=== PATIENT | male | born 1955 | race Hispanic/Latino ===

== ENCOUNTER 2016-11-17 20:08 | Emergency (ER) | payer SELFPAY ==
[2016-11-17 21:28] LABS: Basophils % (Auto) 0.9 % (0.0-1.8); Eosinophils % (Auto) 6.9 % (0.0-4.3); Hematocrit 40.2 % (35.5-45.6); Hemoglobin 13.6 gm/dl (11.8-15.2); Mean Corpuscular HGB Conc 34 % (32-34); Mean Corpuscular Hemoglobin 32 pg (28-32); Mean Corpuscular Volume 93 fl (84-94); Platelet Count 188 K/mm3 (140-440); Red Blood Count 4.31 M/mm3 (3.65-5.03); Red Cell Distribution Width 14.7 % (13.2-15.2); White Blood Count 6.1 K/mm3 (4.5-11.0)
[2016-11-17 21:41] LABS: Alanine Aminotransferase 61 units/L (7-56); Albumin 4.5 g/dL (3.9-5); Alkaline Phosphatase 108 units/L (35-129); Anion Gap 19 mmol/L; Bilirubin,Total 0.4 mg/dL (0.1-1.2); Blood Urea Nitrogen 25 mg/dL (9-20); Calcium 9.7 mg/dL (8.4-10.2); Carbon Dioxide 24 mmol/L (22-30); Chloride 97.4 mmol/L (98-107); Glucose 94 mg/dL (75-100); Lipase 60 units/L (13-60); Potassium 4.3 mmol/L (3.6-5.0); Sodium 136 mmol/L (137-145); Total Protein 8.8 g/dL (6.3-8.2)
[2016-11-17 22:37] LABS: Bilirubin,Urine NEG (Negative); Blood,Urine NEG (Negative); Ketones,Urine NEG (Negative); Leukocyte Esterase,Urine NEG (Negative); Nitrite,Urine NEG (Negative); Protein,Urine <15 mg/dL mg/dL (Negative); Urobilinogen,Urine < 2.0 mg/dL (<2.0)
--- NOTE | 2016-11-17 23:40 | Emergency Department Report ---
Chief Complaint: Abdominal Pain Stated Complaint: PAIN ALL OVER - HPI History of Present Illness: Patient here complaining of abdominal pain for 1 week. Denies any urinary burning frequency or urgency. Pain is 10 out of 10 located to right upper abdomen and right lower chest wall . Patient said that it hurts when he takes a deep breath. Patient denies any fever or chills. Denies any vomiting. Denies any diarrhea. - ROS Review of Systems: All systems are negative unless stated in HPI above. - Exam Vital Signs: Vital Signs 11/17/16 20:28 Temperature 97.5 F L Pulse Rate 109 H Respiratory 16 Rate Blood Pressure 144/103 O2 Sat by Pulse 100 Oximetry Physical Exam: General: This is a 61-year-old male that is frail-looking but in no distress Abdomen: Mild tenderness to palpate to right upper quadrant quadrant without any rebound or guarding. Normal bowel sounds. Chest/CV: Tender to palpate anterior lead to right chest wall distal rib above right upper quadrant. Tachycardic at 109, regular rhythm. S1 and S2 Lungs: Patient with congested cough MSE screening note: Focused history and physical exam performed. Due to findings the following was ordered:see [facility] ED Medical Decision Making - Lab Data Result diagrams: 11/17/16 21:06 11/17/16 21:06 - Medical Decision Making Medical decision making: Patient seen by provider in triage area. Appropriate protocol activated and patient to main ED to be seen by physician. ED Disposition for MSE Condition: Stable
[2016-11-18] MEDS ORDERED: PERCOCET 5/325 PO ONE (03:57)
--- NOTE | 2016-11-18 04:15 | Emergency Department Report ---
ED Chest Pain HPI - General Chief Complaint: Abdominal Pain Stated Complaint: PAIN ALL OVER Time Seen by Provider: 11/17/16 23:42 Source: patient Mode of arrival: Stretcher Limitations: No Limitations - History of Present Illness Initial Comments: 61-year-old male [place] of right lower rib pain 1 month. Patient states he was playing with family members and they were throwing a ball he was struck in his right lower rib cage area. Continued to have pain since. Pain is constant , rated moderate to severe in intensity, worse with palpation and movement. No alleviating factors reported. Patient took ibuprofen without relief. No posterior shortness of breath, nausea, vomiting, diaphoresis, cough, or fever. - Related Data Home Medications Medication Instructions Recorded Confirmed Last Taken Famotidine [Pepcid] 20 mg PO BID 03/09/15 10/22/15 03/07/15 Mag Hydrox/Al Hydrox/Simeth 03/09/15 10/22/15 03/07/15 [Maalox Advanced Suspension] Metoprolol [Lopressor] 25 mg PO BID 03/09/15 10/22/15 Unknown cloNIDine 0.2 mg PO DAILY 03/09/15 10/22/15 03/07/15 hydrALAZINE [Apresoline] 25 mg PO Q8H 03/09/15 10/22/15 Unknown traMADol [Ultram 50 MG tab] 03/09/15 10/22/15 Unknown Previous Rx's Medication Instructions Recorded Last Taken Type Clindamycin [Clindamycin CAP] 450 mg PO Q8HR #21 capsule 10/10/16 Unknown Rx Folic Acid [Folvite] 1 mg PO QDAY #30 tablet 10/10/16 Unknown Rx Multivitamin Tab [Multiple Vitamin 1 each PO QDAY #30 tablet 10/10/16 Unknown Rx TAB (Theragran)] Thiamine [Vitamin B-1] 100 mg PO QDAY #30 tablet 10/10/16 Unknown Rx HYDROcodone/APAP 5-325 [[place] 1 each PO Q6HR PRN #20 tablet 11/18/16 Unknown Rx 5/325] Allergies Allergy/AdvReac Type Severity Reaction Status Date / Time No Known Allergies Allergy Verified 10/22/15 16:56 CAROLYN score - Carolyn Score Age > 65: (0) No Aspirin use within the Past 7 Days: (0) No 3 or more CAD Risk Factors: (0) No 2 or more Angina events in past 24 hrs: (0) No Known CAD with more than 50% Stenosis: (0) No Elevated Cardiac Markers: (0) No ST Deviation Greater than 0.5mm: (0) No CAROLYN Score: 0 ED Review of Systems ROS: Stated complaint: PAIN ALL OVER Other details as noted in HPI Comment: All other systems reviewed and negative Other: Constitutional: No fevers chills Eyes: No eye pain visual changes ENT: No ear pain Neck: Denies pain Respiratory: Denies cough wheezing Cardiovascular: Denies palpitations, syncope GI: Denies abdominal pain, nausea, vomiting : Denies dysuria Musculoskeletal: Denies back pain Skin: Denies rash, lesions, erythema Neurologic: Denies headache, numbness, weakness Psychiatric: Denies suicidal ideation, hallucinations ED Past Medical Hx - Past Medical History Hx Hypertension: Yes Hx GERD: Yes Additional medical history: Left foot pain, Back pain, gastric ulcers - Surgical History Past Surgical History?: No Additional Surgical History: right knee surgery, right wrist surgery, Stomach surgery - Social History Smoking Status: Current Every Day Smoker Substance Use Type: None - Medications Home Medications: Home Medications Medication Instructions Recorded Confirmed Last Taken Type Famotidine [Pepcid] 20 mg PO BID 03/09/15 10/22/15 03/07/15 History Mag Hydrox/Al Hydrox/Simeth 03/09/15 10/22/15 03/07/15 History [Maalox Advanced Suspension] Metoprolol [Lopressor] 25 mg PO BID 03/09/15 10/22/15 Unknown History cloNIDine 0.2 mg PO DAILY 03/09/15 10/22/15 03/07/15 History hydrALAZINE [Apresoline] 25 mg PO Q8H 03/09/15 10/22/15 Unknown History traMADol [Ultram 50 MG tab] 03/09/15 10/22/15 Unknown History Clindamycin [Clindamycin CAP] 450 mg PO Q8HR #21 capsule 10/10/16 Unknown Rx Folic Acid [Folvite] 1 mg PO QDAY #30 tablet 10/10/16 Unknown Rx Multivitamin Tab [Multiple Vitamin 1 each PO QDAY #30 tablet 10/10/16 Unknown Rx TAB (Theragran)] Thiamine [Vitamin B-1] 100 mg PO QDAY #30 tablet 10/10/16 Unknown Rx HYDROcodone/APAP 5-325 [[place] 1 each PO Q6HR PRN #20 tablet 11/18/16 Unknown Rx 5/325] ED Physical Exam - General Limitations: No Limitations - Other Other exam information: General: No limitations, patient is alert in no acute distress Head exam: Atraumatic, normocephalic Eyes exam: Normal appearance, pupils equal reactive to light, extraocular movements intact ENT: Moist mucous membrane, normal oropharynx Neck exam: Normal inspection, full range of motion, no meningismus nontender Respiratory exam: Clear to auscultation bilateral, no wheezes, rales, crackles. Reproducible right anterior lower rib tenderness Cardiovascular: Normal rate and rhythm, normal heart sounds Abdomen: Soft, nondistended, and nontender, with normal bowel sounds, no rebound, or guarding Extremity: Full range of motion normal inspection no deformity Back: Normal Inspection, full range of motion, no tenderness Neurologic: Alert, oriented x3, cranial nerves intact, no motor or sensory deficit Psychiatric: normal affect, normal mood Skin: Warm, dry, intact ED Course Vital Signs 11/17/16 11/18/16 20:28 04:34 Temperature 97.5 F L Pulse Rate 109 H 83 Respiratory 16 17 Rate Blood Pressure 144/103 Blood Pressure 161/101 [Right] O2 Sat by Pulse 100 98 Oximetry - Reevaluation(s) Reevaluation #1: 11/18/16 04:12 Patient given Percocet in the ED for pain Reevaluation #3: 11/18/16 04:45 Patient has a history of hypertension. Given 0.1 mg clonidine prior to discharge ED Medical Decision Making - Lab Data Result diagrams: 11/17/16 21:06 11/17/16 21:06 Lab Results 11/17/16 11/17/16 11/17/16 Range/Units 21:06 21:06 Unknown WBC 6.1 (4.5-11.0) K/mm3 RBC 4.31 (3.65-5.03) M/mm3 Hgb 13.6 (11.8-15.2) gm/dl Hct 40.2 (35.5-45.6) % MCV 93 (84-94) fl MCH 32 (28-32) pg MCHC 34 (32-34) % RDW 14.7 (13.2-15.2) % Plt Count 188 (140-440) K/mm3 Lymph % (Auto) 22.4 (13.4-35.0) % [place] % (Auto) 8.9 H (0.0-7.3) % Eos % (Auto) 6.9 H (0.0-4.3) % Baso % (Auto) 0.9 (0.0-1.8) % Lymph # 1.4 (1.2-5.4) K/mm3 [place] # 0.5 (0.0-0.8) K/mm3 Eos # 0.4 (0.0-0.4) K/mm3 Baso # 0.1 (0.0-0.1) K/mm3 Seg Neutrophils % 60.9 (40.0-70.0) % Seg Neutrophils # 3.7 (1.8-7.7) K/mm3 Sodium 136 L (137-145) mmol/L Potassium 4.3 (3.6-5.0) mmol/L Chloride 97.4 L (98-107) mmol/L Carbon Dioxide 24 (22-30) mmol/L Anion Gap 19 mmol/L BUN 25 H (9-20) mg/dL Creatinine 1.0 (0.8-1.5) mg/dL Estimated GFR > 60 ml/min BUN/Creatinine Ratio 25.00 % Glucose 94 (75-100) mg/dL Calcium 9.7 (8.4-10.2) mg/dL Total Bilirubin 0.4 (0.1-1.2) mg/dL AST 55 H (5-40) units/L ALT 61 H (7-56) units/L Alkaline Phosphatase 108 (35-129) units/L Total Protein 8.8 H (6.3-8.2) g/dL Albumin 4.5 (3.9-5) g/dL Albumin/Globulin Ratio 1.0 % Lipase 60 (13-60) units/L Urine Color Yellow (Yellow) Urine Turbidity Clear (Clear) Urine pH 5.0 (5.0-7.0) Ur Specific [place] 1.017 (1.003-1.030) Urine Protein <15 mg/dl (Negative) mg/dL Urine Glucose (UA) Neg (Negative) mg/dL Urine Ketones Neg (Negative) mg/dL Urine Blood Neg (Negative) Urine Nitrite Neg (Negative) Urine Bilirubin Neg (Negative) Urine Urobilinogen < 2.0 (<2.0) mg/dL Ur Leukocyte Esterase Neg (Negative) Urine WBC (Auto) 3.0 (0.0-6.0) /HPF Urine RBC (Auto) 2.0 (0.0-6.0) /HPF U Epithel Cells (Auto) < 1.0 (0-13.0) /HPF - EKG Data -: EKG Interpreted by Me (sinus rhythm rate 87. no st Elevation T-wave inversions) - EKG Data When compared to previous EKG there are: no significant change (compared to ) - Radiology Data Radiology results: image reviewed (x-ray right rib series no displaced fracture , no pneumothorax, no infiltrate) - Medical Decision Making Patient has reproducible rib tenderness without bruising or displacement. Original injury happened 1 month ago. No obvious fracture identified on x-ray. Patient was treated symptomatically with pain medication. Mild LFT elevation noted and patient gives a history of heavy alcohol use but denies recent alcohol. - Differential Diagnosis fracture, contusion, pneumonia, biliary colic Critical Care Time: No Critical care attestation.: If time is entered above; I have spent that time in minutes in the direct care of this critically ill patient, excluding procedure time. ED Disposition Clinical Impression: Contusion of rib on right side, Hypertension Disposition: DISCHARGED TO HOME OR SELFCARE Is pt being admited?: No Does the pt Need Aspirin: No Condition: Stable Instructions: Rib Fracture (ED), Hypertension (ED) Additional Instructions: You were given discharge instructions for rib fractures. However, no fracture was identified on x-ray at this time. Official report is pending. Management for rib fracture and contusion are generally the same. Take medication as prescribed. Return if symptoms worsen. Prescriptions: HYDROcodone/APAP 5-325 [[place] 5/325] 1 each PO Q6HR PRN #20 tablet PRN Reason: Pain Referrals: PRIMARY CARE, [Primary Care Provider] - 3-5 Days [facility] [Provider Group] - 3-5 Days Time of Disposition: 04:17
[2016-11-18 04:35] VITALS: BP 161/101
[2016-11-18] MEDS ORDERED: CATAPRES PO ONE (04:44)
--- NOTE | 2016-11-18 09:12 | XRay Report ---
Single view chest with right ribs: Compared to 10/09/16. History: Pain with breathing. Findings: Normal cardiomediastinal silhouette. Trachea is midline. No consolidation, pneumothorax or pleural effusion. No acute rib fracture. Impression: No acute cardiopulmonary findings. No acute fracture.
== END 2016-11-18 04:30 | disposition home or self-care (01) ==
LOC: ED 20:08
DX: S20.211A Contusion of right front wall of thorax, initial encounter (principal); I10 Essential (primary) hypertension; K21.9 Gastro-esophageal reflux disease without esophagitis; F17.200 Nicotine dependence, unspecified, uncomplicated; W21.00XA Struck by hit or thrown ball, unspecified type, initial encounter; Y93.89 Activity, other specified; Y99.9 Unspecified external cause status; Y92.89 Other specified places as the place of occurrence of the external cause
CPT/HCPCS: 36415; 80053; 81001; 83690; 85025; 93005; 93010

== ENCOUNTER 2016-11-18 10:24 | Emergency (ER) | payer SELFPAY ==
[2016-11-18 10:35] VITALS: BP 131/90
--- NOTE | 2016-11-18 14:56 | Emergency Department Report ---
Chief Complaint: Extremity Injury, Lower Stated Complaint: DIZZY/LEFT FOOT PAIN Time Seen by Provider: 11/18/16 13:54 - HPI History of Present Illness: 61-year-old male past medical history homelessness resents with complaint of not being able to obtain his medicine because he does not have any money. Also states that he wants a place to stay but does not want to go to a fci. He was discharged from the ER last night, has discharge paperwork and prescriptions in his pocket which she has shown me. Patient showed me his discharge paperwork and prescriptions. Patient is irate and states that I am responsible for finding him housing. - ROS Review of Systems: Diagnosis of rib fractures, chronic foot and back pain - Exam Vital Signs: Vital Signs 11/18/16 10:25 Temperature 97.6 F Pulse Rate 78 Respiratory 20 Rate Blood Pressure 131/90 O2 Sat by Pulse 97 Oximetry Physical Exam: I examined patient's chest wall, has minor tenderness in the right lower chest wall directly over the ribs on palpation. Heart and lungs clear to auscultation. No signs of bruising or ecchymosis on chest wall. Patient has bunions and bilateral feet and poor foot care. No signs of cellulitis distal pulses intact no signs of any abscesses extremities warm to touch not cold. Dorsalis pedis and posterior tibial pulses intact bilaterally no vascular ulcers on exam. MSE screening note: Focused history and physical exam performed. Due to findings the following was ordered: Screening Assessment/Plan/Differential Dx: Social issue/house and issue, homelessness 1- This initial assessment/diagnostic orders/clinical plan/ treatment(s) is/are subject to change based on pt's health status, clinical progression and re- assessment by fellow clinical providers in the ED. Further treatment and workup at subsequent clinical provers discretion. Patient/guardians urged not to elope from ED as their condition may be serious if not clinically assessed and managed. 2-I consulted social insurance adviser/elevator mechanic apprentice Nicko or assistance in this matter, she offered the patient housing in a fci but patient refused 3-patient became irate, as patient has early been assessed and treated medically and has no new complaints used NME process for the patient 4-A should began slamming doors because he was irate, escorted out by security officers ED Disposition for MSE Condition: Stable
== END 2016-11-18 14:15 | disposition left against medical advice (07) ==
LOC: ED 10:24
DX: R42 Dizziness and giddiness (principal); M79.672 Pain in left foot; Z53.21 Procedure and treatment not carried out due to patient leaving prior to being seen by health care provider

== ENCOUNTER 2019-03-17 22:10 | Emergency (ER) | payer MEDICAID ==
[2019-03-17 23:46] LABS: Alanine Aminotransferase 33 units/L (7-56); Albumin 3.9 g/dL (3.9-5); BUN/Creatinine Ratio 13; Blood Urea Nitrogen 16 mg/dL (9-20); Calcium 9.6 mg/dL (8.4-10.2); Hemolysis Index 0
[2019-03-17 23:48] LABS: Basophils % (Auto) 0.9 % (0.0-1.8); Eosinophils # (Auto) 0.3 K/mm3 (0.0-0.4); Eosinophils % (Auto) 6.1 % (0.0-4.3); Hematocrit 33.8 % (35.5-45.6); Hemoglobin 11.9 gm/dl (11.8-15.2); Lymphocytes # (Auto) 1.6 K/mm3 (1.2-5.4); Mean Corpuscular HGB Conc 35 % (32-34); Mean Corpuscular Volume 88 fl (84-94); Monocytes # (Auto) 0.4 K/mm3 (0.0-0.8); Monocytes % (Auto) 7.1 % (0.0-7.3); Platelet Count 204 K/mm3 (140-440); Red Blood Count 3.85 M/mm3 (3.65-5.03)
[2019-03-18] LABS: Red Cell Distribution Width 16.9 % (13.2-15.2)
--- NOTE | 2019-03-18 00:14 | XRay Report ---
PROCEDURE: XR CHEST ROUTINE 2V TECHNIQUE: PA and lateral chest radiographs were obtained. HISTORY: productive cough COMPARISONS: None. FINDINGS: Heart: Normal. Mediastinum/Vessels: Normal. Lungs/Pleural space: Lungs are expanded. There are chronic fibrotic changes. There are no acute infi ltrates. There is no pleural effusion or pneumothorax.. Bony thorax: No acute osseous abnormality. IMPRESSION: There is no acute cardiopulmonary abnormality.. This document is electronically signed by Robin Vegas MD., Mar 18 2019 12:12:53 AM ET
[2019-03-18] MEDS ORDERED: TYLENOL PO ONE (04:33)
--- NOTE | 2019-03-18 04:33 | Emergency Department Report ---
ED General Adult HPI - General Chief complaint: Pain General Stated complaint: BODY PAIN Time Seen by Provider: 03/18/19 04:29 Source: patient Mode of arrival: Ambulatory Limitations: Physical Limitation - History of Present Illness Initial comments: Mr. Ivy is a 63 yo male with history of cellulitis, alcoholism, homelessness rib contusion who presents with diffuse body pain. He states that he has had several months of pain in his right rib cage and "busted foot". He desires pain medication and food to eat. No recent trauma. No other concerns. -: month(s) (several) Location: chest, lower extremity Severity scale (0 -10): 10 Quality: aching Consistency: constant Worsens with: movement Associated Symptoms: denies other symptoms - Related Data Previous Rx's Medication Instructions Recorded Last Taken Type Clindamycin [Clindamycin CAP] 450 mg PO Q8HR #21 capsule 10/10/16 Unknown Rx Folic Acid [Folvite] 1 mg PO QDAY #30 tablet 10/10/16 Unknown Rx Multivitamin Tab [Multiple Vitamin 1 each PO QDAY #30 tablet 10/10/16 Unknown Rx TAB (Theragran)] Thiamine [Vitamin B-1] 100 mg PO QDAY #30 tablet 10/10/16 Unknown Rx HYDROcodone/APAP 5-325 [[place] 1 each PO Q6HR PRN #20 tablet 11/18/16 Unknown Rx 5/325] Allergies Allergy/AdvReac Type Severity Reaction Status Date / Time No Known Allergies Allergy Verified 11/18/16 10:36 ED Review of Systems ROS: Stated complaint: BODY PAIN Other details as noted in HPI Comment: All other systems reviewed and negative Constitutional: denies: fever, malaise Cardiovascular: chest pain Gastrointestinal: denies: abdominal pain Neurological: denies: numbness, paresthesias ED Past Medical Hx - Past Medical History Previous Medical History?: Yes Hx Hypertension: Yes Hx GERD: Yes Additional medical history: Left foot pain, Back pain, gastric ulcers - Surgical History Past Surgical History?: Yes Additional Surgical History: right knee surgery, right wrist surgery, Stomach surgery - Social History Smoking Status: Current Every Day Smoker Substance Use Type: Alcohol - Medications Home Medications: Home Medications Medication Instructions Recorded Confirmed Last Taken Type Clindamycin [Clindamycin CAP] 450 mg PO Q8HR #21 capsule 10/10/16 Unknown Rx Folic Acid [Folvite] 1 mg PO QDAY #30 tablet 10/10/16 Unknown Rx Multivitamin Tab [Multiple Vitamin 1 each PO QDAY #30 tablet 10/10/16 Unknown Rx TAB (Theragran)] Thiamine [Vitamin B-1] 100 mg PO QDAY #30 tablet 10/10/16 Unknown Rx HYDROcodone/APAP 5-325 [[place] 1 each PO Q6HR PRN #20 tablet 11/18/16 Unknown Rx 5/325] ED Physical Exam - General Limitations: No Limitations General appearance: alert, in no apparent distress - Head Head exam: Present: atraumatic, normocephalic - Eye Eye exam: Present: normal appearance - ENT ENT exam: Present: mucous membranes moist - Neck Neck exam: Present: normal inspection, full ROM - Respiratory Respiratory exam: Present: normal lung sounds bilaterally. Absent: respiratory distress, wheezes, rales, rhonchi - Cardiovascular Cardiovascular Exam: Present: regular rate, normal rhythm, normal heart sounds. Absent: systolic murmur, diastolic murmur, rubs, gallop - GI/Abdominal GI/Abdominal exam: Present: soft, normal bowel sounds. Absent: distended, tenderness, guarding, rebound - Rectal Rectal exam: Present: deferred - Neurological Exam Neurological exam: Present: alert, oriented X3 - Psychiatric Psychiatric exam: Present: normal affect, normal mood - Skin Skin exam: Present: warm, dry, intact, normal color. Absent: rash ED Course Vital Signs 03/17/19 03/18/19 22:47 02:16 Temperature 98 F 98.1 F Pulse Rate 103 H 99 H Respiratory 18 18 Rate Blood Pressure 95/70 125/88 O2 Sat by Pulse 97 97 Oximetry ED Medical Decision Making - Lab Data Result diagrams: 03/17/19 23:10 03/17/19 23:10 Laboratory Results - last 24 hr 03/17/19 03/17/19 23:10 23:10 WBC 5.1 RBC 3.85 Hgb 11.9 Hct 33.8 L MCV 88 MCH 31 MCHC 35 H RDW 16.9 H Plt Count 204 Lymph % (Auto) 31.0 [place] % (Auto) 7.1 Eos % (Auto) 6.1 H Baso % (Auto) 0.9 Lymph # 1.6 [place] # 0.4 Eos # 0.3 Baso # 0.0 Seg Neutrophils % 54.9 Seg Neutrophils # 2.8 Sodium 134 L Potassium 4.2 Chloride 99.2 Carbon Dioxide 24 Anion Gap 15 BUN 16 Creatinine 1.2 Estimated GFR > 60 BUN/Creatinine Ratio 13 Glucose 83 Calcium 9.6 Total Bilirubin 0.50 AST 33 ALT 33 Alkaline Phosphatase 104 Total Protein 7.2 Albumin 3.9 Albumin/Globulin Ratio 1.2 - Medical Decision Making Mr. Ivy presents with diffuse pain. Given analgesia and meal in the ED. Dc'd home Critical care attestation.: If time is entered above; I have spent that time in minutes in the direct care of this critically ill patient, excluding procedure time. ED Disposition Clinical Impression: Generalized pain Disposition: DC-01 TO HOME OR SELFCARE Is pt being admited?: No Does the pt Need Aspirin: No Condition: Stable Referrals: GLORIA VALDES MD [Primary Care Provider] - 3-5 Days
[2019-03-18 05:28] VITALS: BP 130/82
== END 2019-03-18 05:44 | disposition home or self-care (01) ==
LOC: ED 22:10
DX: M79.18 Myalgia, other site (principal); R07.81 Pleurodynia; I10 Essential (primary) hypertension; K21.9 Gastro-esophageal reflux disease without esophagitis; F17.200 Nicotine dependence, unspecified, uncomplicated
CPT/HCPCS: 36415; 71046; 80053; 82962; 85025

== ENCOUNTER 2019-03-19 23:42 | Emergency (ER) | payer MEDICAID ==
[2019-03-19 23:56] VITALS: BP 129/83
[2019-03-20] MEDS ORDERED: IBUPROFEN PO ONE (01:24)
--- NOTE | 2019-03-20 01:37 | Emergency Department Report ---
ED General Adult HPI - General Chief complaint: Extremity Injury, Lower Stated complaint: FOOT BACK RIBS Time Seen by Provider: 03/20/19 01:22 Source: patient Mode of arrival: Ambulatory Limitations: Physical Limitation - History of Present Illness Initial comments: 63-year-old male states that he was brought here by police. Patient complains of left foot and back pain 1-1/2 years. Patient reports pain has gotten worse tonight. Patient has taken nothing for pain. Patient denies any recent trauma. He complains of both feet hurt. Onset/Timin -: year(s) Location: back, lower extremity Radiation: non-radiation Severity scale (0 -10): 6 Consistency: intermittent Improves with: immobilization Worsens with: immobilization Associated Symptoms: denies: chest pain, cough, diaphoresis, fever/chills, headaches, loss of appetite, malaise, nausea/vomiting, rash, shortness of breath Treatments Prior to Arrival: none - Related Data Previous Rx's Medication Instructions Recorded Last Taken Type Clindamycin [Clindamycin CAP] 450 mg PO Q8HR #21 capsule 10/10/16 Unknown Rx Folic Acid [Folvite] 1 mg PO QDAY #30 tablet 10/10/16 Unknown Rx Multivitamin Tab [Multiple Vitamin 1 each PO QDAY #30 tablet 10/10/16 Unknown Rx TAB (Theragran)] Thiamine [Vitamin B-1] 100 mg PO QDAY #30 tablet 10/10/16 Unknown Rx HYDROcodone/APAP 5-325 [[place] 1 each PO Q6HR PRN #20 tablet 11/18/16 Unknown Rx 5/325] Acetaminophen [Acetaminophen ER] 650 mg PO Q8HR PRN #24 tablet.er 03/20/19 Unknown Rx Allergies Allergy/AdvReac Type Severity Reaction Status Date / Time No Known Allergies Allergy Verified 11/18/16 10:36 ED Review of Systems ROS: Stated complaint: FOOT BACK RIBS Other details as noted in HPI Comment: All other systems reviewed and negative ED Past Medical Hx - Past Medical History Previous Medical History?: Yes Hx Hypertension: Yes Hx GERD: Yes Additional medical history: Left foot pain, Back pain, gastric ulcers - Surgical History Past Surgical History?: Yes Additional Surgical History: right knee surgery, right wrist surgery, Stomach surgery - Social History Smoking Status: Current Every Day Smoker Substance Use Type: Alcohol, Marijuana - Medications Home Medications: Home Medications Medication Instructions Recorded Confirmed Last Taken Type Clindamycin [Clindamycin CAP] 450 mg PO Q8HR #21 capsule 10/10/16 Unknown Rx Folic Acid [Folvite] 1 mg PO QDAY #30 tablet 10/10/16 Unknown Rx Multivitamin Tab [Multiple Vitamin 1 each PO QDAY #30 tablet 10/10/16 Unknown Rx TAB (Theragran)] Thiamine [Vitamin B-1] 100 mg PO QDAY #30 tablet 10/10/16 Unknown Rx HYDROcodone/APAP 5-325 [[place] 1 each PO Q6HR PRN #20 tablet 11/18/16 Unknown Rx 5/325] Acetaminophen [Acetaminophen ER] 650 mg PO Q8HR PRN #24 tablet.er 03/20/19 Unknown Rx ED Physical Exam - General Limitations: Physical Limitation General appearance: alert, in no apparent distress - Head Head exam: Present: atraumatic, normocephalic - Eye Eye exam: Present: normal appearance, EOMI - ENT ENT exam: Present: mucous membranes moist - Neck Neck exam: Present: normal inspection - Expanded Lower Extremity Exam Left Foot/Toe exam: Present: deformity. Absent: swelling, abrasion, laceration, dislocation, erythema Neuro vascular tendon exam: Present: no vascular compromise Right Hip exam: Present: full ROM Upper Leg exam: Present: normal inspection, full ROM Knee exam: Present: normal inspection, full ROM Foot/Toe exam: Present: full ROM, tenderness. Absent: swelling, abrasion, laceration, ecchymosis, deformity, crepidus, dislocation, erythema Neuro vascular tendon exam: Present: no vascular compromise - Back Exam Back exam: Present: normal inspection - Neurological Exam Neurological exam: Present: alert, oriented X3 - Psychiatric Psychiatric exam: Present: normal affect, normal mood, agitated - Skin Skin exam: Present: warm, dry, intact, normal color. Absent: rash ED Course Vital Signs 03/19/19 23:51 Temperature 97.9 F Pulse Rate 86 Respiratory 18 Rate Blood Pressure 129/83 O2 Sat by Pulse 96 Oximetry ED Medical Decision Making - Medical Decision Making 63-year-old male comes in for 1-1/2 year history of left foot and back pain. He said denies any trauma. Patient reports he was brought here by the police. Patient was given pain medication and will be discharged home to follow up with his primary care provider. Critical care attestation.: If time is entered above; I have spent that time in minutes in the direct care of this critically ill patient, excluding procedure time. ED Disposition Clinical Impression: Chronic pain of toes of both feet, Chronic back pain greater than 3 months duration Disposition: TO HOME OR SELFCARE Is pt being admited?: No Does the pt Need Aspirin: No Condition: Stable Additional Instructions: Please take pain medication as needed. Please soak her feet in warm water with Epsom salt. Follow up with her primary care provider if symptoms persist or gets worse. Prescriptions: Acetaminophen [Acetaminophen ER] 650 mg PO Q8HR PRN #24 tablet.er PRN Reason: Pain , Severe (7-10) Referrals: LINDA THORPE MD [Primary Care Provider] - 3-5 Days
== END 2019-03-20 02:52 | disposition home or self-care (01) ==
LOC: ED 23:42
DX: G89.29 Other chronic pain (principal); M79.675 Pain in left toe(s); M79.674 Pain in right toe(s); I10 Essential (primary) hypertension; K21.9 Gastro-esophageal reflux disease without esophagitis; F17.200 Nicotine dependence, unspecified, uncomplicated; F12.90 Cannabis use, unspecified, uncomplicated; Z79.899 Other long term (current) drug therapy
CPT/HCPCS: 99282

== ENCOUNTER 2019-03-20 13:37 | Emergency (ER) | payer MEDICAID ==
--- NOTE | 2019-03-20 14:07 | Event Note ---
ED Screening Note ED Screening Note: homeless 3rd time here this week see emr co feet pain This initial assessment/diagnostic orders/clinical plan/treatment(s) is/are subject to change based on patients health status, clinical progression and re- assessment by fellow clinical providers in the ED. Further treatment and workup at subsequent clinical providers discretion. Patient/guardian urged not to elope from the ED as their condition may be serious if not clinically assessed and managed. Initial orders include: manager social
[2019-03-20 14:12] VITALS: BP 106/71
[2019-03-20] MEDS ORDERED: TYLENOL PO ONE (15:01)
--- NOTE | 2019-03-20 15:01 | Emergency Department Report ---
ED General Adult HPI - General Chief complaint: Pain General Stated complaint: L LEG PAIN/RIB PAIN Time Seen by Provider: 03/20/19 14:06 Source: patient Mode of arrival: Ambulatory Limitations: No Limitations - History of Present Illness Initial comments: Mr. Ivy is a 63-year-old who presents with bilateral feet pain and rib pain on right side. Denies trauma. Ambulatory with a walker. I asked that he was homeless. He stated that he lives with a friend in [place]. -: unknown Location: chest, left, lower extremity Severity scale (0 -10): 6 Quality: aching Consistency: constant Improves with: none Worsens with: none Associated Symptoms: other (right rib pain) - Related Data Previous Rx's Medication Instructions Recorded Last Taken Type Clindamycin [Clindamycin CAP] 450 mg PO Q8HR #21 capsule 10/10/16 Unknown Rx Folic Acid [Folvite] 1 mg PO QDAY #30 tablet 10/10/16 Unknown Rx Multivitamin Tab [Multiple Vitamin 1 each PO QDAY #30 tablet 10/10/16 Unknown Rx TAB (Theragran)] Thiamine [Vitamin B-1] 100 mg PO QDAY #30 tablet 10/10/16 Unknown Rx HYDROcodone/APAP 5-325 [[place] 1 each PO Q6HR PRN #20 tablet 11/18/16 Unknown Rx 5/325] Acetaminophen [Acetaminophen ER] 650 mg PO Q8HR PRN #24 tablet.er 03/20/19 Unknown Rx Allergies Allergy/AdvReac Type Severity Reaction Status Date / Time No Known Allergies Allergy Verified 11/18/16 10:36 ED Review of Systems ROS: Stated complaint: L LEG PAIN/RIB PAIN Other details as noted in HPI Comment: All other systems reviewed and negative Constitutional: denies: fever, malaise Respiratory: denies: cough, shortness of breath ED Past Medical Hx - Past Medical History Previous Medical History?: Yes Hx Hypertension: Yes Hx GERD: Yes Additional medical history: Left foot pain, Back pain, gastric ulcers - Surgical History Past Surgical History?: Yes Additional Surgical History: right knee surgery, right wrist surgery, Stomach surgery - Social History Smoking Status: Current Every Day Smoker Substance Use Type: Alcohol - Medications Home Medications: Home Medications Medication Instructions Recorded Confirmed Last Taken Type Clindamycin [Clindamycin CAP] 450 mg PO Q8HR #21 capsule 10/10/16 Unknown Rx Folic Acid [Folvite] 1 mg PO QDAY #30 tablet 10/10/16 Unknown Rx Multivitamin Tab [Multiple Vitamin 1 each PO QDAY #30 tablet 10/10/16 Unknown Rx TAB (Theragran)] Thiamine [Vitamin B-1] 100 mg PO QDAY #30 tablet 10/10/16 Unknown Rx HYDROcodone/APAP 5-325 [[place] 1 each PO Q6HR PRN #20 tablet 11/18/16 Unknown Rx 5/325] Acetaminophen [Acetaminophen ER] 650 mg PO Q8HR PRN #24 tablet.er 03/20/19 Unknown Rx ED Physical Exam - General Limitations: No Limitations General appearance: alert, in no apparent distress, other (appears disheveled ambulates with walker) - Head Head exam: Present: atraumatic, normocephalic - Eye Eye exam: Present: normal appearance - ENT ENT exam: Present: mucous membranes moist - Neck Neck exam: Present: normal inspection, full ROM - Respiratory Respiratory exam: Present: normal lung sounds bilaterally. Absent: respiratory distress, wheezes, rales, rhonchi - Cardiovascular Cardiovascular Exam: Present: regular rate, normal rhythm, normal heart sounds. Absent: systolic murmur, diastolic murmur, rubs, gallop - GI/Abdominal GI/Abdominal exam: Present: soft, normal bowel sounds. Absent: distended, tenderness, guarding - Rectal Rectal exam: Present: deferred - Extremities Exam Extremities exam: Present: other (intact skin on both feet with hammertoes intact pedal pulses) - Back Exam Back exam: Present: normal inspection - Neurological Exam Neurological exam: Present: alert, oriented X3 - Psychiatric Psychiatric exam: Present: normal affect, normal mood - Skin Skin exam: Present: warm, dry, intact, normal color. Absent: rash ED Course Vital Signs 03/20/19 14:10 Temperature 97.7 F Pulse Rate 78 Respiratory 18 Rate Blood Pressure 106/71 [Right] O2 Sat by Pulse 97 Oximetry ED Medical Decision Making - Medical Decision Making Mr. Ivy presents with a mild feet pain and left right rib cage pain. No history of trauma. This is Mr. Ivy's third visit in 4 days to the ED. He denies being homeless. Unclear how to help this gentleman further. Given Tylenol. Discharged to self-care Critical care attestation.: If time is entered above; I have spent that time in minutes in the direct care of this critically ill patient, excluding procedure time. ED Disposition Clinical Impression: Bilateral foot pain, Right-sided chest wall pain Disposition: TO HOME OR SELFCARE Is pt being admited?: No Does the pt Need Aspirin: No Condition: Stable Referrals: GLORIA VALDES MD [Primary Care Provider] - 3-5 Days
== END 2019-03-20 15:18 | disposition home or self-care (01) ==
LOC: ED 13:37
DX: M79.672 Pain in left foot (principal); M79.671 Pain in right foot; R07.89 Other chest pain; I10 Essential (primary) hypertension; K21.9 Gastro-esophageal reflux disease without esophagitis; F17.200 Nicotine dependence, unspecified, uncomplicated
CPT/HCPCS: 99281; 99282

== ENCOUNTER 2019-03-21 20:48 | Emergency (ER) | payer MEDICAID ==
--- NOTE | 2019-03-21 21:20 | Emergency Department Report ---
Blank Doc - Documentation Documentation: 63 y o male present to ed cc of apin s/p fall of a ladder 1 year ago no recent fall, ambulates with walker acc eval
[2019-03-21] MEDS ORDERED: TYLENOL PO ONE (23:47)
--- NOTE | 2019-03-21 23:54 | Emergency Department Report ---
ED General Adult HPI - General Chief complaint: Fall Stated complaint: RIB, L FOOT PAIN Time Seen by Provider: 03/21/19 21:17 Source: patient Mode of arrival: Ambulatory Limitations: No Limitations - History of Present Illness Initial comments: Pt is a 63 yo male who walks with a walker who presents to the ED with c/o chronic bilateral foot pain and right rib pain that began a year and a half ago. He denies any acute fall, injury, trauma. He denies any numbness or weakness. pt has been evaluated in the ED 3 times in the last week for this complaint. this is the patients 4th visit for this complaint. pt has not followed up with a primary care doctor. pt also c/o a cough for the last two days. he states he is not coughing anything up. he denies any fever. pt denies any PMHx. he denies any allergies to meds. - Related Data Previous Rx's Medication Instructions Recorded Last Taken Type Clindamycin [Clindamycin CAP] 450 mg PO Q8HR #21 capsule 10/10/16 Unknown Rx Folic Acid [Folvite] 1 mg PO QDAY #30 tablet 10/10/16 Unknown Rx Multivitamin Tab [Multiple Vitamin 1 each PO QDAY #30 tablet 10/10/16 Unknown Rx TAB (Theragran)] Thiamine [Vitamin B-1] 100 mg PO QDAY #30 tablet 10/10/16 Unknown Rx HYDROcodone/APAP 5-325 [[place] 1 each PO Q6HR PRN #20 tablet 11/18/16 Unknown Rx 5/325] Acetaminophen [Acetaminophen ER] 650 mg PO Q8HR PRN #24 tablet.er 03/20/19 Unknown Rx Allergies Allergy/AdvReac Type Severity Reaction Status Date / Time No Known Allergies Allergy Verified 03/21/19 20:52 ED Review of Systems ROS: Stated complaint: RIB, L FOOT PAIN Other details as noted in HPI Comment: All other systems reviewed and negative ED Past Medical Hx - Past Medical History Previous Medical History?: Yes Hx Hypertension: Yes Hx GERD: Yes Additional medical history: Left foot pain, Back pain, gastric ulcers - Surgical History Past Surgical History?: Yes Additional Surgical History: right knee surgery, right wrist surgery, Stomach surgery - Social History Smoking Status: Current Every Day Smoker Substance Use Type: Alcohol - Medications Home Medications: Home Medications Medication Instructions Recorded Confirmed Last Taken Type Clindamycin [Clindamycin CAP] 450 mg PO Q8HR #21 capsule 10/10/16 Unknown Rx Folic Acid [Folvite] 1 mg PO QDAY #30 tablet 10/10/16 Unknown Rx Multivitamin Tab [Multiple Vitamin 1 each PO QDAY #30 tablet 10/10/16 Unknown Rx TAB (Theragran)] Thiamine [Vitamin B-1] 100 mg PO QDAY #30 tablet 10/10/16 Unknown Rx HYDROcodone/APAP 5-325 [[place] 1 each PO Q6HR PRN #20 tablet 11/18/16 Unknown Rx 5/325] Acetaminophen [Acetaminophen ER] 650 mg PO Q8HR PRN #24 tablet.er 03/20/19 Unknown Rx ED Physical Exam - General Limitations: No Limitations General appearance: alert, in no apparent distress - Head Head exam: Present: atraumatic, normocephalic - Respiratory Respiratory exam: Present: normal lung sounds bilaterally, other (very mild TTP over the right anterior ribs, no deformity, no crepitus ). Absent: respiratory distress, wheezes, rales, rhonchi, stridor, accessory muscle use, decreased breath sounds, prolonged expiratory - Cardiovascular Cardiovascular Exam: Present: regular rate, normal rhythm, normal heart sounds. Absent: systolic murmur, diastolic murmur, rubs, gallop - Extremities Exam Extremities exam: Present: other (chronic left foot and left toes deformity, normal right foot, neurovascularly intact, FROM of the bilateral toes, feet, and ankles) - Neurological Exam Neurological exam: Present: alert, oriented X3 - Psychiatric Psychiatric exam: Present: normal affect, normal mood - Skin Skin exam: Present: warm, dry, intact ED Course Vital Signs 03/21/19 03/21/19 03/21/19 20:53 20:54 21:16 Temperature 97.8 F 97.8 F 97.8 F Pulse Rate 95 H 94 H 94 H Respiratory 18 18 16 Rate Blood Pressure 119/76 119/76 Blood Pressure 119/76 [Left] O2 Sat by Pulse 95 96 96 Oximetry 03/22/19 01:28 Temperature 97.6 F Pulse Rate 89 Respiratory 18 Rate Blood Pressure Blood Pressure 130/79 [Left] O2 Sat by Pulse 96 Oximetry ED Medical Decision Making - Radiology Data Radiology results: report reviewed PROCEDURE: XR CHEST 1V AP TECHNIQUE: Chest radiograph single view. HISTORY: cough COMPARISONS: None . FINDINGS: Heart: Normal. Mediastinum/Vessels: Normal. Lungs/Pleural space: Normal. Bony thorax: No acute osseous abnormality. Life support devices: None. IMPRESSION: No acute cardiopulmonary abnormality. This document is electronically signed by Shae Cervantes MD., March 22 2019 01:44:14 AM ET - Medical Decision Making Pt is a 63 yo male who walks with a walker who presents to the ED with c/o chronic bilateral foot pain and right rib pain that began a year and a half ago. He denies any acute fall, injury, trauma. He denies any numbness or weakness. pt has been evaluated in the ED 3 times in the last week for this complaint. this is the patients 4th visit for this complaint. pt has not followed up with a primary care doctor. pt also c/o a cough for the last two days. he states he is not coughing anything up. he denies any fever. pt denies any PMHx. he denies any allergies to meds. pts VSS. CXR with no acute process. pt has mild anterior right sided rib TTP, no crepitus, no deformity, pt has generalized discomfort to his feet, chronic deformity to the left foot, FROM of both feet, neurovascularly intact, pt given tylenol while in the emergency department, pt given something to eat and a new pair of socks, asked pt if he was homeless and he stated no that he "lives with his boss." discussed with pt in detail that he would need to see a primary care provider for his chronic pain. pt given list of community resources. pt given 3 primary care provider clinics. return to the emergency room for any new or worsening symptoms. Critical care attestation.: If time is entered above; I have spent that time in minutes in the direct care of this critically ill patient, excluding procedure time. ED Disposition Clinical Impression: Rib pain on right side Chronic foot pain Qualifiers: Laterality: unspecified laterality Qualified Code(s): M79.673 - Pain in unspecified foot Disposition: DC-01 TO HOME OR SELFCARE Is pt being admited?: No Does the pt Need Aspirin: No Condition: Stable Instructions: Chronic Pain (ED) Additional Instructions: Please follow up with a primary care doctor in the next 2-3 days. given list of community resources. given three primary care providers below. may use ice, heat, rest. may take tylenol or ibuprofen for your discomfort. return to the emergency room for any new or worsening symptoms. Referrals: LINDA THORPE MD [Primary Care Provider] - 2-3 Days [facility] [Provider Group] - 2-3 Days [facility] [Outside] - 2-3 Days Time of Disposition: 01:55 Print Language: ALBANIAN
--- NOTE | 2019-03-22 00:46 | XRay Report ---
PROCEDURE: XR CHEST 1V AP TECHNIQUE: Chest radiograph single view. HISTORY: cough COMPARISONS: None . FINDINGS: Heart: Normal. Mediastinum/Vessels: Normal. Lungs/Pleural space: Normal. Bony thorax: No acute osseous abnormality. Life support devices: None. IMPRESSION: No acute cardiopulmonary abnormality. This document is electronically signed by Shae Cervantes MD., March 22 2019 01:44:14 AM ET
[2019-03-22 01:29] VITALS: BP 130/79
== END 2019-03-22 02:13 | disposition home or self-care (01) ==
LOC: ED 20:48
DX: R07.81 Pleurodynia (principal); M79.671 Pain in right foot; M79.672 Pain in left foot; I10 Essential (primary) hypertension; K21.9 Gastro-esophageal reflux disease without esophagitis; F17.200 Nicotine dependence, unspecified, uncomplicated; G89.29 Other chronic pain
CPT/HCPCS: 71045; 99283

== ENCOUNTER 2019-03-22 10:00 | Emergency (ER) | payer MEDICAID ==
[2019-03-22 10:09] VITALS: BP 125/78
--- NOTE | 2019-03-22 10:25 | Emergency Department Report ---
ED General Adult HPI - General Chief complaint: Pain General Stated complaint: BODY PAIN Time Seen by Provider: 03/22/19 10:20 Source: patient Mode of arrival: Ambulatory Limitations: No Limitations - History of Present Illness Initial comments: Mr. Ivy is a 63 year-old male who presents to the ER for a meal. He initially told me on previous recent ED visit that he was not homeless. He says that he had at a place to stay in [place]. Now today he states that he needs somewhere to go because he is tired of walking. Walking causes pain. Whe n I evaluated his feet on previous exam this week, he did not have any acute evidence of trauma or infection. He does have hammertoes. He has a walker. He walks with steady gait. He states "I need to go somewhere". No acute medical concerns at this time. -: week(s) (1-2) Location: left, right, lower extremity Quality: aching Consistency: constant Worsens with: medication Associated Symptoms: denies other symptoms - Related Data Previous Rx's Medication Instructions Recorded Last Taken Type Clindamycin [Clindamycin CAP] 450 mg PO Q8HR #21 capsule 10/10/16 Unknown Rx Folic Acid [Folvite] 1 mg PO QDAY #30 tablet 10/10/16 Unknown Rx Multivitamin Tab [Multiple Vitamin 1 each PO QDAY #30 tablet 10/10/16 Unknown Rx TAB (Theragran)] Thiamine [Vitamin B-1] 100 mg PO QDAY #30 tablet 10/10/16 Unknown Rx HYDROcodone/APAP 5-325 [[place] 1 each PO Q6HR PRN #20 tablet 11/18/16 Unknown Rx 5/325] Acetaminophen [Acetaminophen ER] 650 mg PO Q8HR PRN #24 tablet.er 03/20/19 Unknown Rx Allergies Allergy/AdvReac Type Severity Reaction Status Date / Time No Known Allergies Allergy Verified 03/22/19 10:02 ED Review of Systems ROS: Stated complaint: BODY PAIN Other details as noted in HPI Constitutional: denies: fever, malaise Respiratory: denies: shortness of breath Cardiovascular: denies: chest pain Gastrointestinal: denies: abdominal pain Neurological: denies: headache, numbness, paresthesias ED Past Medical Hx - Past Medical History Previous Medical History?: Yes Hx Hypertension: Yes Hx GERD: Yes Additional medical history: Left foot pain, Back pain, gastric ulcers - Surgical History Additional Surgical History: right knee surgery, right wrist surgery, Stomach surgery - Social History Smoking Status: Current Every Day Smoker Substance Use Type: Alcohol, Prescribed - Medications Home Medications: Home Medications Medication Instructions Recorded Confirmed Last Taken Type Clindamycin [Clindamycin CAP] 450 mg PO Q8HR #21 capsule 10/10/16 Unknown Rx Folic Acid [Folvite] 1 mg PO QDAY #30 tablet 10/10/16 Unknown Rx Multivitamin Tab [Multiple Vitamin 1 each PO QDAY #30 tablet 10/10/16 Unknown Rx TAB (Theragran)] Thiamine [Vitamin B-1] 100 mg PO QDAY #30 tablet 10/10/16 Unknown Rx HYDROcodone/APAP 5-325 [[place] 1 each PO Q6HR PRN #20 tablet 11/18/16 Unknown Rx 5/325] Acetaminophen [Acetaminophen ER] 650 mg PO Q8HR PRN #24 tablet.er 03/20/19 Unknown Rx ED Physical Exam - General Limitations: No Limitations General appearance: alert, in no apparent distress - Head Head exam: Present: atraumatic, normocephalic - Eye Eye exam: Absent: scleral icterus - ENT ENT exam: Present: mucous membranes moist - Neck Neck exam: Present: normal inspection, full ROM - Respiratory Respiratory exam: Absent: respiratory distress - Neurological Exam Neurological exam: Present: alert, oriented X3 - Psychiatric Psychiatric exam: Present: normal affect, other (minor agitation) ED Course Vital Signs 03/22/19 10:07 Temperature 97.5 F L Pulse Rate 78 Respiratory 18 Rate Blood Pressure 125/78 O2 Sat by Pulse 96 Oximetry ED Medical Decision Making - Medical Decision Making Mr. Ivy will receive a social welfare administrator consult. He was given a meal. No in dication of acute emergent or psychiatric condition which stablization at this time. Mr. Ivy is exhibiting behavior for secondary gain. dc'd for the fifth time this week. Vital signs are reviewed stable. Critical care attestation.: If time is entered above; I have spent that time in minutes in the direct care of this critically ill patient, excluding procedure time. ED Disposition Clinical Impression: Chronic pain of both feet Disposition: DC-01 TO HOME OR SELFCARE Is pt being admited?: No Does the pt Need Aspirin: No Condition: Stable Referrals: LINDA THORPE MD [Primary Care Provider] - 3-5 Days [facility] [Outside] - 3-5 Days
== END 2019-03-22 11:28 | disposition home or self-care (01) ==
LOC: ED 10:00
DX: M79.671 Pain in right foot (principal); M79.672 Pain in left foot; I10 Essential (primary) hypertension; E11.9 Type 2 diabetes mellitus without complications; F12.10 Cannabis abuse, uncomplicated; G89.29 Other chronic pain; Z98.890 Other specified postprocedural states
CPT/HCPCS: 71045; 99282; 99283

== ENCOUNTER 2019-04-07 18:31 | Emergency (ER) | payer MEDICAID ==
[2019-04-07 19:31] LABS: Bilirubin,Urine NEG (Negative); Blood,Urine NEG (Negative); Color,Urine Yellow (Yellow); Hyaline Casts,Urine 3 /LPF; Mucus,Urine FEW /HPF; Protein,Urine <15 mg/dL mg/dL (Negative); Urobilinogen,Urine < 2.0 mg/dL (<2.0)
[2019-04-07 20:01] LABS: Basophils % (Auto) 0.8 % (0.0-1.8); Eosinophils # (Auto) 0.4 K/mm3 (0.0-0.4); Eosinophils % (Auto) 7.1 % (0.0-4.3); Hemoglobin 13.2 gm/dl (11.8-15.2); Lymphocytes # (Auto) 1.4 K/mm3 (1.2-5.4); Lymphocytes % (Auto) 24.6 % (13.4-35.0); Mean Corpuscular HGB Conc 34 % (32-34); Mean Corpuscular Volume 91 fl (84-94); Monocytes # (Auto) 0.5 K/mm3 (0.0-0.8); Monocytes % (Auto) 8.7 % (0.0-7.3); Platelet Count 193 K/mm3 (140-440); Red Blood Count 4.29 M/mm3 (3.65-5.03); Red Cell Distribution Width 17.5 % (13.2-15.2)
--- NOTE | 2019-04-07 20:19 | Emergency Department Report ---
HPI - HPI HPI: I was asked by nurse to provide disposition and discharge of the work. I reviewed documentation. Case management provider resources. He is discharged home in stable condition. I am familiar with Mr. Ivy. I have treated him recently on several occasions. <BEATRIS CANTOR - Last Filed: 04/08/19 11:00> - HPI HPI: 63-year-old male presents to the emergency department with a complaint of nausea, vomiting, abdominal pain and bilateral foot pain. Patient says that this is been going on for the past few days it is really a exacerbation of some chronic issues. Patient was seen here about 4 or 5 times in 1 week at the end of February and beginning of March for similar complaints of his foot pain. He walks with a walker and often times is homeless and will spend a lot of time walking around. on top of that, the patient appears to have some hammertoes and/or chronic deformities of his feet. He currently says that he is not homeless and that he is staying at the house of his "boss" but is unable to tell me the nature of his work. Despite complaining of abdominal pain, nausea and vomiting, the patient also says he is "hungry as hell." <JOZEF LANDIN - Last Filed: 04/08/19 19:56> - General Chief Complaint: Abdominal Pain Time Seen by Provider: 04/07/19 19:01 ED Past Medical Hx <BEATRIS CANTOR - Last Filed: 04/08/19 11:00> - Past Medical History Previous Medical History?: Yes Hx Hypertension: Yes Hx GERD: Yes Additional medical history: Left foot pain, Back pain, gastric ulcers - Surgical History Past Surgical History?: Yes Additional Surgical History: right knee surgery, right wrist surgery, Stomach surgery - Social History Smoking Status: Current Every Day Smoker Substance Use Type: Alcohol, Marijuana <JOZEF LANDIN - Last Filed: 04/08/19 19:56> - Medications Home Medications: Home Medications Medication Instructions Recorded Confirmed Last Taken Type Folic Acid [Folvite] 1 mg PO QDAY #30 tablet 10/10/16 Unknown Rx Multivitamin Tab [Multiple Vitamin 1 each PO QDAY #30 tablet 10/10/16 Unknown Rx TAB (Theragran)] Thiamine [Vitamin B-1] 100 mg PO QDAY #30 tablet 12/21/16 Unknown Rx HYDROcodone/APAP 5-325 [[place] 1 each PO Q6HR PRN #20 tablet 11/18/16 Unknown Rx 5/325] Acetaminophen [Acetaminophen ER] 650 mg PO Q8HR PRN #24 tablet.er 03/20/19 Unknown Rx ALBUTEROL Inhaler (OR & NICU) 04/07/19 Unknown History Donepezil [Aricept] 04/07/19 Unknown History Ipratropium [Atrovent NEB] 04/07/19 Unknown History Polyethylene Glycol 3350 [Miralax] 04/07/19 Unknown History amLODIPine [Norvasc] 04/07/19 Unknown History ED Review of Systems ROS: Stated complaint: L FOOT/R SIDE PAIN Other details as noted in HPI <BEATRIS CANTOR - Last Filed: 04/08/19 11:00> ROS: Stated complaint: L FOOT/R SIDE PAIN Other details as noted in HPI Comment: All other systems reviewed and negative Constitutional: denies: see HPI, fever Eyes: denies: eye pain, vision change ENT: denies: ear pain, throat pain Respiratory: denies: cough, shortness of breath Cardiovascular: denies: chest pain, palpitations Gastrointestinal: abdominal pain, nausea, vomiting Genitourinary: denies: dysuria, discharge Musculoskeletal: arthralgia. denies: back pain Skin: denies: rash, lesions Neurological: denies: headache, weakness <JOZEF LANDIN - Last Filed: 04/08/19 19:56> Physical Exam - Physical Exam Vital Signs: Vital Signs 04/07/19 04/07/19 04/07/19 18:51 18:56 19:30 Pulse Rate 81 91 H 81 Respiratory 16 17 14 Rate Blood Pressure Blood Pressure 159/95 [Right] O2 Sat by Pulse 98 98 96 Oximetry 04/07/19 04/07/19 04/07/19 20:00 20:16 21:50 Pulse Rate 81 87 90 Respiratory 16 13 Rate Blood Pressure 159/95 159/95 159/95 Blood Pressure [Right] O2 Sat by Pulse 97 97 Oximetry 04/07/19 04/07/19 04/07/19 22:08 22:16 22:34 Pulse Rate 77 Respiratory 19 18 16 Rate Blood Pressure 159/95 159/95 Blood Pressure [Right] O2 Sat by Pulse Oximetry 04/08/19 04/08/19 04/08/19 00:38 04:30 06:36 Pulse Rate 80 74 75 Respiratory 16 16 16 Rate Blood Pressure Blood Pressure 151/78 [Right] O2 Sat by Pulse 95 96 94 Oximetry 04/08/19 09:07 Pulse Rate 82 Respiratory 16 Rate Blood Pressure Blood Pressure 152/85 [Right] O2 Sat by Pulse 96 Oximetry <BEATRIS CANTOR - Last Filed: 04/08/19 11:00> - Physical Exam Vital Signs: Vital Signs 04/07/19 18:56 Pulse Rate 91 H Respiratory 17 Rate Blood Pressure 159/95 [Right] O2 Sat by Pulse 98 Oximetry Physical Exam: GENERAL: Patient has a thin habitus and disheveled appearance. HENT: Normocephalic. Atraumatic. Patient has moist mucous membranes. EYES: Extraocular motions are intact. NECK: Supple. Trachea is midline. CHEST/LUNGS: Clear to auscultation. There is no respiratory distress noted. HEART/CARDIOVASCULAR: Regular. There is no tachycardia. There is no murmur. ABDOMEN: Abdomen is soft, nontender. Patient has normal bowel sounds. There is no abdominal distention. SKIN: Skin is warm and dry. NEURO: The patient is awake, alert, and oriented. The patient is cooperative. The patient has no focal neurologic deficits. The patient has normal speech. MUSCULOSKELETAL: There is some tenderness to palpation along the bilateral feet. The patient has hammertoes, worst on the left foot. <JOZEF LANDIN - Last Filed: 04/08/19 19:56> ED Course Vital Signs 04/07/19 04/07/19 04/07/19 18:51 18:56 19:30 Pulse Rate 81 91 H 81 Respiratory 16 17 14 Rate Blood Pressure Blood Pressure 159/95 [Right] O2 Sat by Pulse 98 98 96 Oximetry 04/07/19 04/07/19 04/07/19 20:00 20:16 21:50 Pulse Rate 81 87 90 Respiratory 16 13 Rate Blood Pressure 159/95 159/95 159/95 Blood Pressure [Right] O2 Sat by Pulse 97 97 Oximetry 04/07/19 04/07/19 04/07/19 22:08 22:16 22:34 Pulse Rate 77 Respiratory 19 18 16 Rate Blood Pressure 159/95 159/95 Blood Pressure [Right] O2 Sat by Pulse Oximetry 04/08/19 04/08/1919 00:38 04:30 06:36 Pulse Rate 80 74 75 Respiratory 16 16 16 Rate Blood Pressure Blood Pressure 151/78 [Right] O2 Sat by Pulse 95 96 94 Oximetry 04/08/19 09:07 Pulse Rate 82 Respiratory 16 Rate Blood Pressure Blood Pressure 152/85 [Right] O2 Sat by Pulse 96 Oximetry <BEATRIS CANTOR - Last Filed: 04/08/19 11:00> Vital Signs 04/07/19 18:56 Pulse Rate 91 H Respiratory 17 Rate Blood Pressure 159/95 [Right] O2 Sat by Pulse 98 Oximetry <JOZEF LANDIN - Last Filed: 04/08/19 19:56> ED Medical Decision Making - Lab Data Result diagrams: 04/07/19 19:32 04/07/19 19:32 <BEATRIS CANTOR - Last Filed: 04/08/19 11:00> - Lab Data Result diagrams: 04/07/19 19:32 04/07/19 19:32 - Radiology Data Radiology results: image reviewed interpreted by me: X-ray of the abdomen shows nonspecific nonobstructive bowel gas. X-ray of the bilateral feet does not show any acute fracture, dislocation or any acute process. - Medical Decision Making Patient presents to the emergency Department with complaints of some abdominal pain as well as pain to the bilateral feet that are acute or chronic. Despite complaining of nausea and decreased appetite, the patient says that he is extremely hungry. He eventually was given a hot meal tray and ate it without any issues with nausea or vomiting. Prior to this, the patient had an abdominal x-ray that shows some nonspecific nonobstructive bowel gas. Labs have been unremarkable including CBC, metabolic panel and belly labs. X-rays were done of the bilateral feet secondary to his complain of foot pain. However the patient has chronic deformities of the feet and toes. He is wearing socks previously obtained from a different hospital stay. He was reevaluated multiple times and appears to be resting comfortably. The patient says that he is currently living at his boss's house but says he does not know how he would get back there and is unsure if he can return there. The patient will remain overnight in the emergency department and a case management consultation has been placed. <JOZEF LANDIN - Last Filed: 04/08/19 19:56> Critical care attestation.: If time is entered above; I have spent that time in minutes in the direct care of this critically ill patient, excluding procedure time. <BEATRIS CANTOR - Last Filed: 04/08/19 11:00> Critical Care Time: No Critical care attestation.: If time is entered above; I have spent that time in minutes in the direct care of this critically ill patient, excluding procedure time. <JZOEF LANDIN S - Last Filed: 04/08/19 19:56> ED Disposition Is pt being admited?: No Does the pt Need Aspirin: No <BEATRIS CANTOR - Last Filed: 04/08/19 11:00> Is pt being admited?: No Time of Disposition: 19:56 <JOZEF LANDIN - Last Filed: 04/08/19 19:56> Clinical Impression: Generalized abdominal pain, Homelessness Disposition: - TO HOME OR SELFCARE Condition: Stable Referrals: LINDA THORPE MD [Primary Care Provider] - 3-5 Days
[2019-04-07 20:29] LABS: Albumin 4.2 g/dL (3.9-5); Calcium 9.7 mg/dL (8.4-10.2)
--- NOTE | 2019-04-07 21:15 | XRay Report ---
PROCEDURE: XR ABDOMEN 2V TECHNIQUE: Abdominal series, including supine and upright AP views. HISTORY: abd pain COMPARISONS: None . FINDINGS: Bowel gas pattern: Intestinal gas is distributed in multiple nondistended small and large bowel loop s including the rectum. . . Masses or calcifications: An irregular calcific density in the right upper quadrant measuring 9 mm m ay represent etiologies such as hepatic calcification and stone in the gallbladder . Bony structures: Mild degree levoscoliosis is noted. There is decreased height of L2 vertebral body.. Pneumoperitoneum: None . . IMPRESSION: Nonspecific intestinal gas pattern. Calcific density in the right upper quadrant may represent etiologies such as hepatic calcification v ersus cholelithiasis. Ultrasound evaluation may be recommended. Compression deformity of L2 vertebral body. The age of these fractures is not known.. This document is electronically signed by Francisco Gibbons MD., April 07 2019 09:13:49 PM ET
--- NOTE | 2019-04-07 21:23 | XRay Report ---
PROCEDURE: XR FOOT BILAT 3+V TECHNIQUE: BILATERAL foot radiographs, AP, lateral, and oblique views. HISTORY: foot pain COMPARISONS: None . FINDINGS: LEFT FOOT: There is absence of the posterior portion of calcaneus. Flexion deformities are noted involving all t he toes. An acute fracture line is not identified. Narrowing of the intertarsal joint spaces identifi ed. Soft tissues are unremarkable. RIGHT FOOT: Fracture (s) and/or Dislocation(s): None . Alignment: Normal . Joint space(s): Normal . Soft tissues: Normal . Bone mineralization: Normal . Foreign bodies: None . Calcaneal spurring: None . 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
[2019-04-08 09:08] VITALS: BP 152/85
== END 2019-04-08 12:15 | disposition home or self-care (01) ==
LOC: ED 18:31
DX: R11.2 Nausea with vomiting, unspecified (principal); M79.672 Pain in left foot; M79.671 Pain in right foot; R10.9 Unspecified abdominal pain; I10 Essential (primary) hypertension; K21.9 Gastro-esophageal reflux disease without esophagitis; F17.200 Nicotine dependence, unspecified, uncomplicated; F12.90 Cannabis use, unspecified, uncomplicated; Z59.0 Homelessness; Z98.890 Other specified postprocedural states; Z79.899 Other long term (current) drug therapy
CPT/HCPCS: 36415; 74019; 80053; 81001; 83690; 85025; 87086; 99284

== ENCOUNTER 2019-04-10 18:06 | Emergency (ER) | payer MEDICAID ==
[2019-04-10] MEDS ORDERED: IBUPROFEN PO ONE (18:29)
--- NOTE | 2019-04-10 18:31 | Event Note ---
ED Screening Note ED Screening Note: PD TO ER CO FOOT AND BACK PAIN POOR INFORMANT FELL OFF ROOF 1 Y AGO 4RTH VISIT THIS MONTH MONITOR SUZI JETT This initial assessment/diagnostic orders/clinical plan/treatment(s) is/are subject to change based on patients health status, clinical progression and re- assessment by fellow clinical providers in the ED. Further treatment and workup at subsequent clinical providers discretion. Patient/guardian urged not to elope from the ED as their condition may be serious if not clinically assessed and managed. Initial orders include:
--- NOTE | 2019-04-10 20:29 | Emergency Department Report ---
ED General Adult HPI - General Chief complaint: Back Pain/Injury Stated complaint: FOOT/BACK PAIN Time Seen by Provider: 04/10/19 18:27 Source: patient Mode of arrival: Ambulatory Limitations: Physical Limitation - History of Present Illness Initial comments: 63-year-old male comes to the emergency room complaining of back pain and leg pain. Patient reports that he had a fall one year ago. Patient states that the staff therapist to him in the car and brought him over here just left him. Patient is in the lumbar chronic back and chronic left leg pain. Patient reports has not taken anything for pain. Patient was last seen here on 04/07/2019 x-rays of both feet were completed and shows no acute fractures.. This makes patient's fourth visit to the ER this month. Onset/Timin -: year(s) Location: back, lower extremity (left) Severity scale (0 -10): 10 Quality: aching Consistency: constant Worsens with: movement Associated Symptoms: denies other symptoms Treatments Prior to Arrival: none - Related Data Home Medications Medication Instructions Recorded Confirmed Last Taken ALBUTEROL Inhaler (OR & NICU) 04/07/19 Unknown Donepezil [Aricept] 04/07/19 Unknown Ipratropium [Atrovent NEB] 04/07/19 Unknown Polyethylene Glycol 3350 [Miralax] 04/07/19 Unknown amLODIPine [Norvasc] 04/07/19 Unknown Previous Rx's Medication Instructions Recorded Last Taken Type Folic Acid [Folvite] 1 mg PO QDAY #30 tablet 10/10/16 Unknown Rx Multivitamin Tab [Multiple Vitamin 1 each PO QDAY #30 tablet 10/10/16 Unknown Rx TAB (Theragran)] Thiamine [Vitamin B-1] 100 mg PO QDAY #30 tablet 10/10/16 Unknown Rx HYDROcodone/APAP 5-325 [[place] 1 each PO Q6HR PRN #20 tablet 11/18/16 Unknown Rx 5/325] Acetaminophen [Acetaminophen ER] 650 mg PO Q8HR PRN #24 tablet.er 04/10/19 Unknown Rx Allergies Allergy/AdvReac Type Severity Reaction Status Date / Time No Known Allergies Allergy Verified 04/10/19 18:11 ED Review of Systems ROS: Stated complaint: FOOT/BACK PAIN Other details as noted in HPI Comment: All other systems reviewed and negative Musculoskeletal: back pain, arthralgia (left leg) ED Past Medical Hx - Past Medical History Hx Hypertension: Yes Hx GERD: Yes Additional medical history: Left foot pain, Back pain, gastric ulcers - Surgical History Additional Surgical History: right knee surgery, right wrist surgery, Stomach surgery - Social History Smoking Status: Current Every Day Smoker Substance Use Type: Alcohol, Marijuana - Medications Home Medications: Home Medications Medication Instructions Recorded Confirmed Last Taken Type Folic Acid [Folvite] 1 mg PO QDAY #30 tablet 10/10/16 Unknown Rx Multivitamin Tab [Multiple Vitamin 1 each PO QDAY #30 tablet 10/10/16 Unknown Rx TAB (Theragran)] Thiamine [Vitamin B-1] 100 mg PO QDAY #30 tablet 10/10/16 Unknown Rx HYDROcodone/APAP 5-325 [[place] 1 each PO Q6HR PRN #20 tablet 11/18/16 Unknown Rx 5/325] ALBUTEROL Inhaler (OR & NICU) 04/07/19 Unknown History Donepezil [Aricept] 04/07/19 Unknown History Ipratropium [Atrovent NEB] 04/07/19 Unknown History Polyethylene Glycol 3350 [Miralax] 04/07/19 Unknown History amLODIPine [Norvasc] 04/07/19 Unknown History Acetaminophen [Acetaminophen ER] 650 mg PO Q8HR PRN #24 tablet.er 04/10/19 Unknown Rx ED Physical Exam - General Limitations: Physical Limitation General appearance: alert, cachectic - Head Head exam: Present: atraumatic, normocephalic - Eye Eye exam: Present: normal appearance - ENT ENT exam: Present: mucous membranes moist - Neck Neck exam: Present: normal inspection - Respiratory Respiratory exam: Present: normal lung sounds bilaterally. Absent: respiratory distress - Cardiovascular Cardiovascular Exam: Present: regular rate, normal rhythm. Absent: systolic murmur, diastolic murmur, rubs, gallop - Expanded Lower Extremity Exam Left Knee exam: Present: full ROM. Absent: deformity Lower Leg exam: Present: tenderness - Back Exam Back exam: Present: tenderness - Neurological Exam Neurological exam: Present: alert, oriented X3, abnormal gait (uses a walker) - Psychiatric Psychiatric exam: Present: normal affect, normal mood, depressed - Skin Skin exam: Present: warm, dry, intact, normal color. Absent: rash ED Course Vital Signs 04/10/19 18:30 Temperature 97.9 F Pulse Rate 106 H Respiratory 18 Rate Blood Pressure 126/90 O2 Sat by Pulse 96 Oximetry ED Medical Decision Making - Medical Decision Making 63-year-old male comes in for chronic back and chronic left leg pain. Patient be given ibuprofen. The patient was discharged to follow up with his primary care provider or orthopedic provider. X-rays were performed on 04/07/2019 shows no acute fracture. Critical care attestation.: If time is entered above; I have spent that time in minutes in the direct care of this critically ill patient, excluding procedure time. ED Disposition Clinical Impression: Chronic back pain greater than 3 months duration, Chronic pain of left lower extremity, Chronic toe pain, left foot Disposition: TO HOME OR SELFCARE Is pt being admited?: No Does the pt Need Aspirin: No Condition: Stable Instructions: Arthralgia (ED), Lumbar Radiculopathy (ED) Additional Instructions: Take pain medication as needed. Follow-up with orthopedic provider I have listed the inflammation below for your convenience. Prescriptions: Acetaminophen [Acetaminophen ER] 650 mg PO Q8HR PRN #24 tablet.er PRN Reason: Pain , Severe (7-10) Referrals: JESE HORAN MD [Staff Physician] - 3-5 Days
[2019-04-11 08:55] VITALS: BP 122/80
== END 2019-04-10 22:20 | disposition home or self-care (01) ==
LOC: ED 18:06
DX: G89.29 Other chronic pain (principal); M54.9 Dorsalgia, unspecified; M79.672 Pain in left foot; M79.675 Pain in left toe(s)
CPT/HCPCS: 99283

== ENCOUNTER 2019-04-14 21:57 | Emergency (ER) | payer MEDICAID ==
[2019-04-14 22:21] VITALS: BP 134/85
--- NOTE | 2019-04-14 22:32 | Event Note ---
ED Screening Note ED Screening Note: gen pain here numerous times VSS This initial assessment/diagnostic orders/clinical plan/treatment(s) is/are subject to change based on patients health status, clinical progression and re- assessment by fellow clinical providers in the ED. Further treatment and workup at subsequent clinical providers discretion. Patient/guardian urged not to elope from the ED as their condition may be serious if not clinically assessed and managed. Initial orders include:
[2019-04-14 23:23] LABS: Hematocrit 37.1 % (35.5-45.6); Hemoglobin 12.7 gm/dl (11.8-15.2); Mean Corpuscular HGB Conc 34 % (32-34); Mean Corpuscular Volume 91 fl (84-94); Platelet Count 198 K/mm3 (140-440); Red Blood Count 4.08 M/mm3 (3.65-5.03); Red Cell Distribution Width 17.1 % (13.2-15.2)
[2019-04-14 23:54] LABS: Albumin 4.3 g/dL (3.9-5); Calcium 9.6 mg/dL (8.4-10.2)
[2019-04-15] MEDS ORDERED: TYLENOL PO ONE (01:57)
--- NOTE | 2019-04-15 01:58 | Emergency Department Report ---
ED General Adult HPI - General Chief complaint: Pain General Stated complaint: GENERALIZED BODY PAIN Time Seen by Provider: 04/14/19 22:11 Source: patient Mode of arrival: Ambulatory Limitations: No Limitations, Physical Limitation - History of Present Illness Initial comments: 63-year-old male here multiple times for the same complaints of generalized pain. Patient was last seen here on 04/10/2019. Patient was given a prescription for Tylenol 650 mg every 8 hours on 04/10/2019. Patient has no new complaints. Onset/Timin -: year(s) Improves with: immobilization Worsens with: movement Associated Symptoms: denies other symptoms - Related Data Home Medications Medication Instructions Recorded Confirmed Last Taken ALBUTEROL Inhaler (OR & NICU) 04/07/19 Unknown Donepezil [Aricept] 04/07/19 Unknown Ipratropium [Atrovent NEB] 04/07/19 Unknown Polyethylene Glycol 3350 [Miralax] 04/07/19 Unknown amLODIPine [Norvasc] 04/07/19 Unknown Previous Rx's Medication Instructions Recorded Last Taken Type Folic Acid [Folvite] 1 mg PO QDAY #30 tablet 10/10/16 Unknown Rx Multivitamin Tab [Multiple Vitamin 1 each PO QDAY #30 tablet 10/10/16 Unknown Rx TAB (Theragran)] Thiamine [Vitamin B-1] 100 mg PO QDAY #30 tablet 10/10/16 Unknown Rx HYDROcodone/APAP 5-325 [[place] 1 each PO Q6HR PRN #20 tablet 11/18/16 Unknown Rx 5/325] Acetaminophen [Acetaminophen ER] 650 mg PO Q8HR PRN #24 tablet.er 04/10/19 Unknown Rx Allergies Allergy/AdvReac Type Severity Reaction Status Date / Time No Known Allergies Allergy Verified 04/10/19 18:11 ED Review of Systems ROS: Stated complaint: GENERALIZED BODY PAIN Other details as noted in HPI Constitutional: denies: chills, fever Eyes: denies: eye pain, eye discharge, vision change ENT: denies: ear pain, throat pain Respiratory: denies: cough, shortness of breath, wheezing Cardiovascular: denies: chest pain, palpitations Endocrine: no symptoms reported Gastrointestinal: denies: abdominal pain, nausea, diarrhea Genitourinary: denies: urgency, dysuria Musculoskeletal: denies: back pain, joint swelling, arthralgia Skin: denies: rash, lesions Neurological: denies: headache, weakness, paresthesias Psychiatric: denies: anxiety, depression Hematological/Lymphatic: denies: easy bleeding, easy bruising ED Past Medical Hx - Past Medical History Hx Hypertension: Yes Hx GERD: Yes Additional medical history: Left foot pain, Back pain, gastric ulcers - Surgical History Additional Surgical History: right knee surgery, right wrist surgery, Stomach surgery - Social History Smoking Status: Current Every Day Smoker - Medications Home Medications: Home Medications Medication Instructions Recorded Confirmed Last Taken Type Folic Acid [Folvite] 1 mg PO QDAY #30 tablet 10/10/16 Unknown Rx Multivitamin Tab [Multiple Vitamin 1 each PO QDAY #30 tablet 10/10/16 Unknown Rx TAB (Theragran)] Thiamine [Vitamin B-1] 100 mg PO QDAY #30 tablet 10/10/16 Unknown Rx HYDROcodone/APAP 5-325 [[place] 1 each PO Q6HR PRN #20 tablet 11/18/16 Unknown Rx 5/325] ALBUTEROL Inhaler (OR & NICU) 04/07/19 Unknown History Donepezil [Aricept] 04/07/19 Unknown History Ipratropium [Atrovent NEB] 04/07/19 Unknown History Polyethylene Glycol 3350 [Miralax] 04/07/19 Unknown History amLODIPine [Norvasc] 04/07/19 Unknown History Acetaminophen [Acetaminophen ER] 650 mg PO Q8HR PRN #24 tablet.er 04/10/19 Unknown Rx ED Physical Exam - General Limitations: No Limitations, Physical Limitation General appearance: alert, in no apparent distress, other (and) - Head Head exam: Present: atraumatic, normocephalic - Eye Eye exam: Present: EOMI - ENT ENT exam: Present: mucous membranes moist - Extremities Exam Extremities exam: Present: normal inspection, other (uses a walker) - Back Exam Back exam: Present: normal inspection - Neurological Exam Neurological exam: Present: alert, oriented X3 - Psychiatric Psychiatric exam: Present: normal affect, normal mood - Skin Skin exam: Present: warm, dry, intact, normal color. Absent: rash ED Course Vital Signs 04/14/19 04/15/19 22:05 01:06 Temperature 97.9 F Pulse Rate 92 H Respiratory 16 16 Rate Blood Pressure 134/85 O2 Sat by Pulse 97 Oximetry ED Medical Decision Making - Lab Data Result diagrams: 04/14/19 22:55 04/14/19 22:55 - Medical Decision Making 63-year-old male comes in with generalized pain that is chronic for over year. Patient be given a Tylenol and referred to his primary care provider. Critical care attestation.: If time is entered above; I have spent that time in minutes in the direct care of this critically ill patient, excluding procedure time. ED Disposition Clinical Impression: Noncompliance with medication regimen, Homelessness, Generalized pain Disposition: DC- TO HOME OR SELFCARE Is pt being admited?: No Does the pt Need Aspirin: No Condition: Stable Instructions: Abdominal Pain in Children (ED), Chronic Pain (ED) Additional Instructions: Please follow up with her primary care provider or pain specialist. Chronic pain. [facility] [Primary Care Provider] - 3-5 Days
== END 2019-04-15 02:42 | disposition home or self-care (01) ==
LOC: ED 21:57
DX: G89.29 Other chronic pain (principal); M79.10 Myalgia, unspecified site; Z91.14 Patient's other noncompliance with medication regimen; I10 Essential (primary) hypertension; K21.9 Gastro-esophageal reflux disease without esophagitis; F17.200 Nicotine dependence, unspecified, uncomplicated; Z59.0 Homelessness; Z98.890 Other specified postprocedural states; Z79.899 Other long term (current) drug therapy
CPT/HCPCS: 36415; 80053; 85027; 99282

== ENCOUNTER 2019-04-27 07:40 | Inpatient (IN) | payer MEDICAID ==
[2019-04-27] MEDS ORDERED: MORPHINE IV ONE (08:18)
[2019-04-27] MEDS ORDERED: NACL 0.9% 500 ML 500 ML IV ONE (08:18)
--- NOTE | 2019-04-27 08:26 | Emergency Department Report ---
HPI - General Chief Complaint: Extremity Injury, Lower Time Seen by Provider: 04/27/19 07:45 - HPI HPI: 63-year-old male presents to the emergency department with complaint of right hip pain after a ground-level fall earlier this morning. The patient has a history of chronic back pain and chronic foot pain and he uses a walker for ambulation secondary to the foot pain and chronic foot deformities. Patient says that he just slipped on the floor at his friend's house, where he has recently been staying. He denies hitting his head or any loss of consciousness. He presents by EMS and did not receive anything for his symptoms in route. ED Past Medical Hx - Past Medical History Hx Hypertension: Yes Hx GERD: Yes Additional medical history: Left foot pain, Back pain, gastric ulcers - Surgical History Additional Surgical History: right knee surgery, right wrist surgery, Stomach surgery - Social History Smoking Status: Current Every Day Smoker Substance Use Type: Alcohol - Medications Home Medications: Home Medications Medication Instructions Recorded Confirmed Last Taken Type Folic Acid [Folvite] 1 mg PO QDAY #30 tablet 10/10/16 Unknown Rx Multivitamin Tab [Multiple Vitamin 1 each PO QDAY #30 tablet 10/10/16 Unknown Rx TAB (Theragran)] Thiamine [Vitamin B-1] 100 mg PO QDAY #30 tablet 10/10/16 Unknown Rx HYDROcodone/APAP 5-325 [[place] 1 each PO Q6HR PRN #20 tablet 11/18/16 Unknown Rx 5/325] ALBUTEROL Inhaler (OR & NICU) 04/07/19 Unknown History Donepezil [Aricept] 04/07/19 Unknown History Ipratropium [Atrovent NEB] 04/07/19 Unknown History Polyethylene Glycol 3350 [Miralax] 04/07/19 Unknown History amLODIPine [Norvasc] 04/07/19 Unknown History Acetaminophen [Acetaminophen ER] 650 mg PO Q8HR PRN #24 tablet.er 04/10/19 Unknown Rx ED Review of Systems ROS: Stated complaint: (R) HIP PAIN Other details as noted in HPI Comment: All other systems reviewed and negative Constitutional: denies: chills, fever Eyes: denies: eye pain, vision change ENT: denies: ear pain, throat pain Respiratory: denies: cough, shortness of breath Cardiovascular: denies: chest pain, palpitations Gastrointestinal: denies: abdominal pain, vomiting Genitourinary: denies: dysuria, frequency Musculoskeletal: arthralgia. denies: back pain Skin: denies: rash, lesions Neurological: denies: headache, numbness, paresthesias Physical Exam - Physical Exam Vital Signs: Vital Signs 04/27/19 07:48 Temperature 97.5 F L Pulse Rate 87 Respiratory 18 Rate Blood Pressure 131/80 O2 Sat by Pulse 99 Oximetry Physical Exam: GENERAL: Patient is disheveled. HENT: Normocephalic. Atraumatic. Patient has moist mucous membranes. EYES: Extraocular motions are intact. NECK: Supple. Trachea is midline. CHEST/LUNGS: Clear to auscultation. There is no respiratory distress noted. HEART/CARDIOVASCULAR: Regular. There is no tachycardia. There is no murmur. ABDOMEN: Abdomen is soft, nontender. Patient has normal bowel sounds. There is no abdominal distention. SKIN: Skin is warm and dry. NEURO: patient is awake, alert, and oriented. The patient is cooperative. The patient has no focal neurologic deficits. The patient has normal speech. MUSCULOSKELETAL: There is tenderness to palpation of the right hip. It appears either flexed or angulated with suspicion of fracture. Distal pulses intact. ED Course Vital Signs 04/27/19 07:48 Temperature 97.5 F L Pulse Rate 87 Respiratory 18 Rate Blood Pressure 131/80 O2 Sat by Pulse 99 Oximetry - Consultations Consultation #1: I spoke with the orthopedist monogram and letter paster, Dr. Sloan, who is aware of the patient's intertrochanteric fracture and has agreed to consult on the patient. The patient will most likely go to surgery tomorrow. 04/27/19 12:22 ED Medical Decision Making - Lab Data Result diagrams: 04/27/19 08:20 04/27/19 08:20 - Radiology Data Radiology results: image reviewed interpreted by me: X-ray of the right hip shows a comminuted intertrochanteric fracture. - Medical Decision Making This patient presents with right hip pain after a ground-level fall. He is unable to lay his right lower extremity flat against the gurney. He is tender to palpation. X-ray shows a closed comminuted intertrochanteric fracture. He is otherwise neurovascularly intact. The orthopedist has been contacted and consult. The patient will be admitted to the hospitalist service and was accepted for admission by Dr. Singh. - Differential Diagnosis hip fracture, contusion, sprain, strain Critical Care Time: No Critical care attestation.: If time is entered above; I have spent that time in minutes in the direct care of this critically ill patient, excluding procedure time. ED Disposition Clinical Impression: Fall from ground level Closed intertrochanteric fracture of right femur Qualifiers: Encounter type: initial encounter Fracture alignment: displaced Qualified Code(s): S72.141A - Displaced intertrochanteric fracture of right femur, initial encounter for closed fracture Disposition: -09 OP ADMIT IP TO THIS HOSP Is pt being admited?: Yes Condition: Fair
--- NOTE | 2019-04-27 08:49 | XRay Report ---
RIGHT HIP, 3 VIEWS 04/27/2019 INDICATION / CLINICAL INFORMATION: right hip pain, fall. COMPARISON: None available. FINDINGS: Comminuted intertrochanteric fracture of the proximal right femur. No evidence of hip dislocation. No pelvic fracture. There are advanced degenerative changes lower lumbar spine. Signer Name: Adonis Tam MD Signed: 04/27/2019 8:45 AM Workstation Name: [id number]
[2019-04-27 08:53] LABS: Basophils # (Auto) 0.1 K/mm3 (0.0-0.1); Eosinophils # (Auto) 0.6 K/mm3 (0.0-0.4); Eosinophils % (Auto) 10.3 % (0.0-4.3); Hematocrit 37.5 % (35.5-45.6); Hemoglobin 12.7 gm/dl (11.8-15.2); Lymphocytes # (Auto) 1.7 K/mm3 (1.2-5.4); Lymphocytes % (Auto) 30.3 % (13.4-35.0); Mean Corpuscular HGB Conc 34 % (32-34); Mean Corpuscular Volume 91 fl (84-94); Monocytes # (Auto) 0.4 K/mm3 (0.0-0.8); Monocytes % (Auto) 7.4 % (0.0-7.3); Platelet Count 196 K/mm3 (140-440); Red Blood Count 4.13 M/mm3 (3.65-5.03); Red Cell Distribution Width 15.8 % (13.2-15.2)
[2019-04-27 08:57] LABS: BUN/Creatinine Ratio 15; Blood Urea Nitrogen 18 mg/dL (9-20); Calcium 9.2 mg/dL (8.4-10.2); Hemolysis Index 121
[2019-04-27] MEDS ORDERED: ATIVAN IV ONE (09:02)
[2019-04-27] MEDS ORDERED: NACL 0.9% 1000 ML 1,000 ML IV ONE (09:02)
--- NOTE | 2019-04-27 13:10 | Consultation ---
History of Present Illness - HPI Consult date: 04/27/19 Consult reason: joint pain History of present illness: 63 y/o male with c/o right hip pain and swelling after falling earlier today at a friend's house, states he was going to bathroom and slipped unble to weight bear afterwards brought to the ED at [facility] where xrays taken revealed displaced right intertrochanteric hip fracture....no other c/o's noted... Medications and Allergies Allergies Allergy/AdvReac Type Severity Reaction Status Date / Time No Known Allergies Allergy Verified 04/10/19 18:11 Home Medications Medication Instructions Recorded Confirmed Last Taken Type Folic Acid [Folvite] 1 mg PO QDAY #30 tablet 10/10/16 Unknown Rx Multivitamin Tab [Multiple Vitamin 1 each PO QDAY #30 tablet 10/10/16 Unknown R x TAB (Theragran)] Thiamine [Vitamin B-1] 100 mg PO QDAY #30 tablet 10/10/16 Unknown Rx HYDROcodone/APAP 5-325 [[place] 1 each PO Q6HR PRN #20 tablet 11/18/16 Unknown Rx 5/325] ALBUTEROL Inhaler (OR & NICU) 04/07/19 Unknown History Donepezil [Aricept] 04/07/19 Unknown History Ipratropium [Atrovent NEB] 04/07/19 Unknown History Polyethylene Glycol 3350 [Miralax] 04/07/19 Unknown History amLODIPine [Norvasc] 04/07/19 Unknown History Acetaminophen [Acetaminophen ER] 650 mg PO Q8HR PRN #24 tablet.er 04/10/19 Unknown Rx Active Meds: Active Medications Morphine Sulfate (Morphine) 4 mg IV Q4H PRN PRN Reason: Pain , Severe (7-10) Physical Examination - Physical exam Narrative exam: right LE - shortened externally rotated and tender at proximal thigh, decreased active/passive ROM, distal n/v intact... Eyes: PERRL ENT: Positive: clear oral mucosa Respiratory effort: normal Respiratory: bilateral: CTA Rhythm: regular Heart Sounds: Positive: S1 & S2 General gastrointestinal: Positive: soft, non-tender, non-distended, normal bowel sounds Integumentary: clear, warm, dry Neurologic: Positive: CNII-XII intact, moves all extremities, gait normal. Negative: focal deficits - Cervical Spine Neck pain: none Tenderness with palpation: none Full ROM: yes ROM: flexion: normal ROM: extension: normal ROM: rotation right: normal ROM: rotation left: normal ROM: lateral flexion right: normal ROM: lateral flexion left: normal - Lumbar Spine Back pain: none Tenderness with palpation: none Appearance: normal Full ROM: yes ROM: flexion: normal ROM: extension: normal ROM: rotation right: normal ROM: rotation left: normal ROM: lateral flexion right: normal ROM: lateral flexion left: normal Assessment and Plan Displaced right intertrochanteric hip fracture Recommendation - closed reduction insertion intrameduallary nail right hip
[2019-04-27] MEDS ORDERED: PROVENTIL IH PRN (15:05)
[2019-04-27] MEDS ORDERED: TYLENOL PO PRN (15:05)
[2019-04-27] MEDS ORDERED: SODIUM CHLORIDE FLUSH SYRINGE 10 ML IV PRN (15:05)
--- NOTE | 2019-04-27 15:05 | History and Physical Report ---
History of Present Illness Date of admission: 04/27/19 09:14 Chief complaint: pain in right hip History of present illness: 63-year-old man who comes to the hospital after he had a ground-level fall this morning. He was at his friend's house, he has chronic back pain and chronic foot pain and uses a walker for ambulation secondary to chronic foot deformities. He was at his friend's house and he slipped and fell. He is currently staying with his friend because he is homeless. He denies hitting his head on a loss of consciousness, he noticed that he had severe pain in his right hip and was unable to bear weight on it. Past Medical History: GERD, hypertension, left foot pain and chronic, back pain, gastric ulcers Past Surgical History: Other (Right Knee, Right Wrist, Ex-lap for PUD) Social history: single, every day smoker, alcohol use, had claims it's moderate. Currently homeless Family history: hypertension Constitutional: no fever, no chills, no night sweats, no weight loss, no weight gain, no sweats, no anorexia, no fatigue, no weakness, no malaise, no lethargy Eyes: bilateral: other (no complaint of visual problems.) Ears, nose, mouth and throat: mouth pain, no ear pain, no ear discharge, no decreased hearing, no nose pain, no nasal congestion, no bleeding gums, no dental pain, no dysphagia, no hoarseness, no sore throat Cardiovascular: no orthopnea, no palpitations, no rapid/irregular heart beat, no phlebitis Respiratory: no cough with sputum, no excessive sputum, no hemoptysis, no wheezing, no pleurisy, no pain Gastrointestinal: abdominal pain, nausea, no vomiting, no diarrhea, no hematochezia, no loss of appetite Rectal: no pain, no incontinence, no bleeding Musculoskeletal: no neck stiffness, no neck pain, no shooting arm pain, no arm numbness/tingling, but admits to right hip pain associated with cramping Integumentary: no pruritis, no redness, no sores Neurological: no transient paralysis, no paralysis, no weakness Psychiatric: no memory loss, no change in sleep habits, no disorientation Endocrine: no heat intolerance, no polyphagia Hematologic/Lymphatic: no easy bruising, no easy bleeding Allergic/Immunologic: no allergic rhinitis Medications and Allergies Allergies Allergy/AdvReac Type Severity Reaction Status Date / Time No Known Allergies Allergy Verified 04/10/19 18:11 Home Medications Medication Instructions Recorded Confirmed Last Taken Type Folic Acid [Folvite] 1 mg PO QDAY #30 tablet 10/10/16 Unknown Rx Multivitamin Tab [Multiple Vitamin 1 each PO QDAY #30 tablet 10/10/16 Unknown Rx TAB (Theragran)] Thiamine [Vitamin B-1] 100 mg PO QDAY #30 tablet 10/10/16 Unknown Rx HYDROcodone/APAP 5-325 [[place] 1 each PO Q6HR PRN #20 tablet 11/18/16 Unknown Rx 5/325] ALBUTEROL Inhaler (OR & NICU) 04/07/19 Unknown History Donepezil [Aricept] 04/07/19 Unknown History Ipratropium [Atrovent NEB] 04/07/19 Unknown History Polyethylene Glycol 3350 [Miralax] 04/07/19 Unknown History amLODIPine [Norvasc] 04/07/19 Unknown History Acetaminophen [Acetaminophen ER] 650 mg PO Q8HR PRN #24 tablet.er 04/10/19 Unknown Rx Active Meds: Active Medications Amlodipine Besylate (Norvasc) 10 mg PO DAILY ASCENCION Donepezil HCl (Aricept) 10 mg PO DAILY ASCENCION Morphine Sulfate (Morphine) 4 mg IV Q4H PRN PRN Reason: Pain , Severe (7-10) Exam - Constitutional Vitals: Temp Pulse Resp BP Pulse Ox 98.0 F 89 20 146/97 99 04/27/19 11:08 04/27/19 11:08 04/27/19 11:08 04/27/19 11:08 04/27/19 11:08 General appearance: Present: no acute distress, well-nourished - EENT Eyes: Present: PERRL ENT: hearing intact, clear oral mucosa - Neck Neck: Present: supple, normal ROM - Respiratory Respiratory effort: normal Respiratory: bilateral: CTA - Cardiovascular Heart Sounds: Present: S1 & S2. Absent: rub, click - Extremities Extremities: pulses symmetrical, No edema Peripheral Pulses: within normal limits - Abdominal General gastrointestinal: Present: soft, non-tender, non-distended, normal bowel sounds Male genitourinary: Present: normal - Integumentary Integumentary: Present: clear, warm, dry - Musculoskeletal Musculoskeletal: strength equal bilaterally, other (decreased range of motion in right hip, due to pain) - Psychiatric Psychiatric: appropriate mood/affect, intact judgment & insight - Neurologic Neurologic: CNII-XII intact, moves all extremities Results - Labs CBC & Chem 7: 04/27/19 08:20 04/27/19 08:20 Labs: Laboratory Last Values WBC 5.6 K/mm3 (4.5-11.0) 04/27/19 08:20 RBC 4.13 M/mm3 (3.65-5.03) 04/27/19 08:20 Hgb 12.7 gm/dl (11.8-15.2) 04/27/19 08:20 Hct 37.5 % (35.5-45.6) 04/27/19 08:20 MCV 91 fl (84-94) 04/27/19 08:20 MCH 31 pg (28-32) 04/27/19 08:20 MCHC 34 % (32-34) 04/27/19 08:20 RDW 15.8 % (13.2-15.2) H 04/27/19 08:20 Plt Count 196 K/mm3 (140-440) 04/27/19 08:20 Lymph % (Auto) 30.3 % (13.4-35.0) 04/27/19 08:20 Pepin % (Auto) 7.4 % (0.0-7.3) H 04/27/19 08:20 Eos % (Auto) 10.3 % (0.0-4.3) H 04/27/19 08:20 Baso % (Auto) Heel Coverer Machine Operator 04/27/19 08:20 Lymph # 1.7 K/mm3 (1.2-5.4) 04/27/19 08:20 Pep[place] # 0.4 K/mm3 (0.0-0.8) 04/27/19 08:20 Eos # 0.6 K/mm3 (0.0-0.4) H 04/27/19 08:20 Baso # 0.1 K/mm3 (0.0-0.1) 04/27/19 08:20 Seg Neutrophils % 50.9 % (40.0-70.0) 04/27/19 08:20 Seg Neutrophils # 2.9 K/mm3 (1.8-7.7) 04/27/19 08:20 Sodium 134 mmol/L (137-145) L 04/27/19 08:20 Potassium 4.6 mmol/L (3.6-5.0) 04/27/19 08:20 Chloride 99.4 mmol/L (98-107) 04/27/19 08:20 Carbon Dioxide 25 mmol/L (22-30) 04/27/19 08:20 14 mmol/L 04/27/19 08:20 BUN 18 mg/dL (9-20) 04/27/19 08:20 1.2 mg/dL (0.8-1.5) 04/27/19 08:20 Estimated GFR > 60 ml/min 04/27/19 08:20 15 % 04/27/19 08:20 Glucose 97 mg/dL (75-100) 04/27/19 08:20 Calcium 9.2 mg/dL (8.4-10.2) 04/27/19 08:20 Assessment and Plan Assessment and plan: 63-year-old man who presents with right hip fracture Diagnoses Right hip fracture History of dementia Homelessness Peptic ulcer disease Chronic pain in back and l foot Ambulatory dysfunction, uses a walker at baseline Tobacco abuse, currently every day smoker Plan To or tomorrow for close reduction, pain meds for now Case management consult as patient will likely need rehabilitation placement after surgery Patient has been counseled on tobacco cessation greater than 10 minutes, nicotine patches when necessary PPI for history of GERD and peptic ulcer disease DVT prophylaxis with Lovenox
[2019-04-27] MEDS ORDERED: MIRALAX 3350 PO PRN (15:13)
[2019-04-27] MEDS: MORPHINE IV PRN (15:40)
[2019-04-27] MEDS: ZOFRAN IV PRN (15:40)
[2019-04-27] MEDS: NORCO 5/325 PO PRN (20:23)
[2019-04-27] MEDS: LOVENOX SUB-Q SCH (21:24)
[2019-04-27] MEDS: HABITROL TD SCH (21:24)
[2019-04-27] MEDS: PROTONIX PO SCH (21:24)
[2019-04-27] MEDS: SODIUM CHLORIDE FLUSH SYRINGE 10 ML IV SCH (21:25)
[2019-04-28] MEDS: FLEXERIL PO PRN (01:28)
[2019-04-28] MEDS: MORPHINE IV PRN ×2 (01:28→23:28)
[2019-04-28] MEDS ORDERED: ZOFRAN IV PRN (07:03)
--- NOTE | 2019-04-28 07:03 | Anesthesia Consultation ---
Anesthesia Consult and Med Hx Date of service: 04/28/19 - Airway Anesthetic Teeth Evaluation: Edentulous ROM Head & Neck: Adequate Mental/Hyoid Distance: Adequate Mallampati Class: Class II Intubation Access Assessment: Good - Pre-Operative Health Status ASA Pre-Surgery Classification: ASA2 Proposed Anesthetic Plan: General - Pulmonary Hx Smoking: Yes Hx Asthma: No COPD: No Hx Pneumonia: No - Cardiovascular System Hx Hypertension: Yes - Gastrointestinal Hx Ulcer: Yes (gastric) Hx Gastroesophageal Reflux Disease: Yes - Endocrine Hx End Stage Renal Disease: No
--- NOTE | 2019-04-28 07:03 | Anesthesia Day of Surgery ---
Anesthesia Day of Surgery - Day of Surgery Patient Examined: Yes Patient H&P Reviewed: Yes Patient is NPO: Yes
[2019-04-28] MEDS ORDERED: TYLENOL PO NR (07:04)
[2019-04-28] MEDS ORDERED: MORPHINE IV NR (07:04)
[2019-04-28] MEDS ORDERED: TORADOL ONE (07:15)
[2019-04-28] MEDS ORDERED: MORPHINE ONE (07:16)
[2019-04-28] MEDS ORDERED: MARCAINE 0.5% INFILTRATI ONE ×2 (07:16→08:58)
[2019-04-28] MEDS ORDERED: DILAUDID ONE (07:29)
[2019-04-28] MEDS ORDERED: DIPRIVAN 10 MG/ML IV ONE (07:29)
[2019-04-28] MEDS ORDERED: XYLOCAINE MPF 2% ONE (07:31)
[2019-04-28] MEDS ORDERED: NACL 0.9% 1000 ML 1,000 ML ONE (07:39)
[2019-04-28] MEDS ORDERED: ANCEF/STERILE WATER 2 GM/20 ML IV NR (08:00)
[2019-04-28] MEDS ORDERED: NEURONTIN PO NR (08:00)
[2019-04-28 08:10] LABS: INR 1.04 (0.87-1.13)
[2019-04-28 08:11] LABS: Partial Thromboplastin Time 30.3 Sec. (24.2-36.6)
[2019-04-28] MEDS ORDERED: NEO SYNEPHRINE/NS Syringe(OR USE) IV ONE (08:22)
[2019-04-28] MEDS ORDERED: WATER FOR IRRIG STERILE IR ONE (08:25)
[2019-04-28] MEDS ORDERED: NACL 0.9% IR ONE (08:25)
[2019-04-28] MEDS ORDERED: ZOFRAN ONE (09:00)
[2019-04-28] MEDS: ATROVENT IH SCH (09:07)
--- NOTE | 2019-04-28 09:11 | Procedure Note ---
Date of procedure: 04/28/19 Pre-op diagnosis: displaced right intertrochanteric fracture Post-op diagnosis: same Procedure: Closed reduction insertion of intramedullary nail right femur Procedure The patient was brought to the OR initially on table in supine position follow ing induction and intubation by anesthesia the patient was placed onto the [place] table with the right lower extremity and longitudinal traction next the C-arm was brought in the fracture was reduced in both the AP and lateral views following this the left hip and thigh were prepped and draped in the usual sterile manner. A timeout procedure was done to identify the patient and the correct operative site. Stab wound or incision was made proximal to the greater trochanter this was taken down sharply through skin and subcutaneous using digital palpation and they all the entry point onto the proximal femur was located next a threaded guidewire was inserted across the proximal fracture into the medullary canal this was then RO overreamed with a large drill bit A guidewire was inserted across the fracture site into the distal femur again AP and lateral views were obtained showing good placement of the guidewire following this the proximal femur was reamed to a 12.5 mm diameter this was followed by insertion of a 11 x 420 intramedullary nail again the nail was inserted and a antegrade fashion a secondary incision was made distal to the greater trochanter again using the targeting device a 100 mm helical blade was was inserted into the femoral neck and head region this was followed by insertion of a distal interlocking screw again under C-arm visualization AP and lateral views were obtained showing good reduction of the fracture and placement of the hardware following this the wound was copiously irrigated and was closed in a standard routine fashion. Dressings were applied the patient tolerated the procedure there were no complications she was sent to postanesthesia recovery in a stable condition Anesthesia: GETA Surgeon: JESE HORAN (Sheron Alegre, 1st plant attendant or assistant operator) Estimated blood loss: 50-100ml Pathology: none Condition: stable Disposition: PACU
[2019-04-28] MEDS: SUBLIMAZE IV PRN ×2 (09:47→10:05)
[2019-04-28] MEDS ORDERED: POLYETHYLENE GLYCOL 17 GM PO SCH (10:00)
[2019-04-28] MEDS ORDERED: SODIUM CHLORIDE FLUSH SYRINGE 10 ML IV NR (10:00)
[2019-04-28] MEDS: ARICEPT PO SCH (11:12)
[2019-04-28] MEDS: MIRALAX 3350 PO SCH (11:12)
[2019-04-28] MEDS: FOLVITE PO SCH ×2 (11:12→15:04)
[2019-04-28] MEDS: PROTONIX PO SCH ×2 (11:13→15:03)
[2019-04-28] MEDS: NORVASC PO SCH ×2 (11:13→15:04)
[2019-04-28] MEDS: VITAMIN B-1 PO SCH ×2 (11:14→15:04)
[2019-04-28] MEDS: THERAGRAN Tab PO SCH ×2 (11:14→15:03)
[2019-04-28] MEDS: HABITROL TD SCH ×2 (12:24→15:04)
[2019-04-28] MEDS: SODIUM CHLORIDE FLUSH SYRINGE 10 ML IV SCH (12:25)
--- NOTE | 2019-04-28 12:46 | XRay Report ---
RIGHT HIP, 2 VIEWS INDICATION: RT HIP FX. Intraoperative films. COMPARISON: 04/27/2018 IMPRESSION: Fluoroscopy was provided during surgery. 2 fluoroscopic images of the right hip are prese nted. The comminuted fracture of the proximal right femur has been internally fixated with intramedul amy demetria and femoral neck screw since 04/27/2019. Alignment is near-anatomic. There is normal articulat ion at the right hip. Mild osteoarthritic changes are noted. Please correlate with the procedural rep ort as needed. Signer Name: Kirby Estrada Jr, MD Signed: 04/28/2019 12:42 PM Workstation Name: [id number]
--- NOTE | 2019-04-28 18:32 | Progress Note ---
Assessment and Plan Assessment and plan: 63-year-old man who presents with right hip fracture Diagnoses Right hip fracture History of dementia Homelessness Peptic ulcer disease Chronic pain in back and l foot Ambulatory dysfunction, uses a walker at baseline Tobacco abuse, currently every day smoker Moderate malnutrition Plan sp closed reduction on 04/28, pain meds Case management consult as patient will likely need rehabilitation placement after surgery Patient has been counseled on tobacco cessation greater than 10 minutes, nicotine patches when necessary PPI for history of GERD and peptic ulcer disease Dietitian consult, encouraged on balanced diet DVT prophylaxis with Lovenox This boy awaiting placement, patient is currently homeless but does have insurance History Interval history: Right hip pain is improved Review of systems Constitutional: No fevers, no malaise, no joint pains CVS: No chest pain, no orthopnea, no dyspnea on exertion, no pedal edema GI: No abdominal pain, no diarrhea, no vomiting, no constipation Respiratory: no wheezing, no coughing Hospitalist Physical - Physical exam Narrative exam: General.: Appears well, no distress, nontoxic HEENT: Moist mucous membranes, extraocular muscles intact, no lymphadenopathy Neck: supple Cardiac: S1-S2 heard Lungs: clear to auscultation bilaterally Abdomen: soft , nontender, nondistended, bowel sounds positive Extremities: no edema clubbing or cyanosis Skin: no rash or lesions Neurologic: no gross focal deficits Psych: calm, and cooperative - Constitutional Vitals: Temp Pulse Resp BP Pulse Ox 97.8 F 112 H 18 91/67 92 04/28/19 16:12 04/28/19 16:12 04/28/19 16:12 04/28/19 16:12 04/28/19 16:12 General appearance: Present: no acute distress, well-nourished Results - Labs CBC & Chem 7: 04/30/19 03:48 04/30/19 03:48 Labs: Laboratory Last Values WBC 5.6 K/mm3 (4.5-11.0) 04/27/19 08:20 RBC 4.13 M/mm3 (3.65-5.03) 04/27/19 08:20 Hgb 12.7 gm/dl (11.8-15.2) 04/27/19 08:20 Hct 37.5 % (35.5-45.6) 04/27/19 08:20 MCV 91 fl (84-94) 04/27/19 08:20 MCH 31 pg (28-32) 04/27/19 08:20 MCHC 34 % (32-34) 04/27/19 08:20 RDW 15.8 % (13.2-15.2) H 04/27/19 08:20 Plt Count 196 K/mm3 (140-440) 04/27/19 08:20 Lymph % (Auto) 30.3 % (13.4-35.0) 04/27/19 08:20 [place] % (Auto) 7.4 % (0.0-7.3) H 04/27/19 08:20 Eos % (Auto) 10.3 % (0.0-4.3) H 04/27/19 08:20 Baso % (Auto) Zone [employer] 04/27/19 08:20 Lymph # 1.7 K/mm3 (1.2-5.4) 04/27/19 08:20 [place] # 0.4 K/mm3 (0.0-0.8) 04/27/19 08:20 Eos # 0.6 K/mm3 (0.0-0.4) H 04/27/19 08:20 Baso # 0.1 K/mm3 (0.0-0.1) 04/27/19 08:20 Seg Neutrophils % 50.9 % (40.0-70.0) 04/27/19 08:20 Seg Neutrophils # 2.9 K/mm3 (1.8-7.7) 04/27/19 08:20 PT 13.3 Sec. (12.2-14.9) 04/28/19 07:35 INR 1.04 (0.87-1.13) 04/28/19 07:35 APTT 30.3 Sec. (24.2-36.6) 04/28/19 07:35 Sodium 134 mmol/L (137-145) L 04/27/19 08:20 Potassium 4.6 mmol/L (3.6-5.0) 04/27/19 08:20 Chloride 99.4 mmol/L (98-107) 04/27/19 08:20 Carbon Dioxide 25 mmol/L (22-30) 04/27/19 08:20 14 mmol/L 04/27/19 08:20 BUN 18 mg/dL (9-20) 04/27/19 08:20 1.2 mg/dL (0.8-1.5) 04/27/19 08:20 Estimated GFR > 60 ml/min 04/27/19 08:20 15 % 04/27/19 08:20 Glucose 97 mg/dL (75-100) 04/27/19 08:20 Calcium 9.2 mg/dL (8.4-10.2) 04/27/19 08:20 Blood Type O POSITIVE 04/28/19 07:35 Antibody Screen Negative 04/28/19 07:35 Active Medications - Current Medications Current Medications: Generic Name Dose Route Start Last Admin Trade Name Freq PRN Reason Stop Dose Admin Acetaminophen 650 mg 04/27/19 15:05 Tylenol PO Q4H PRN Pain MILD(1-3)/Fever >100.5/AGARWAL Acetaminophen/Hydrocodone Bitart 1 each 04/27/19 14:58 04/27/19 20:23 [place] 5/325 PO 1 each Q6HR PRN Administration Pain Albuterol 2.5 mg 04/27/19 15:05 Proventil IH Q4HRT PRN Shortness Of Breath Amlodipine Besylate 10 mg 04/28/19 10:00 04/28/19 15:04 Norvasc PO 10 mg DAILY ASCENCION Administration Cefazolin Sodium 2 gm 04/28/19 08:00 Ancef/Sterile Water 2 Gm/20 Ml IV 04/28/19 23:59 PREOP NR Cyclobenzaprine HCl 5 mg 04/27/19 16:47 04/28/19 01:28 Flexeril PO 5 mg Q8H PRN Administration Muscle Spasm Donepezil HCl 10 mg 04/28/19 10:00 04/28/19 11:12 Aricept PO Not Given DAILY ASCENCION Enoxaparin Sodium 40 mg 04/27/19 22:00 04/27/19 21:24 Lovenox SUB-Q 40 mg QDAY@2200 ASCENCION Administration Folic Acid 1 mg 04/28/19 10:00 04/28/19 15:04 Folvite PO 1 mg QDAY ASCENCION Administration Lactated Ringer's 1,000 mls @ 100 mls/hr 04/28/19 08:00 Lactated Ringers IV DIRECT ASCENCION Ipratropium [place] 1 mg 04/28/19 10:00 04/28/19 09:07 Atrovent IH Not Given DAILY ASCENCION Morphine Sulfate 4 mg 04/27/19 13:04 04/28/19 01:28 Morphine IV 4 mg Q4H PRN Administration Pain , Severe (7-10) Morphine Sulfate 2 mg 04/28/19 09:05 Morphine IV Q4H PRN Pain, Moderate (4-6) Multivitamins 1 each 04/28/19 10:00 04/28/19 15:03 Theragran Tab PO 1 each QDAY ASCENCION Administration Nicotine 14 mg 04/27/19 18:45 04/28/19 15:04 Habitrol TD 14 mg QDAY ASCENCION Administration Ondansetron HCl 4 mg 04/27/19 15:05 04/27/19 15:40 Zofran IV 4 mg Q8H PRN Administration Nausea And Vomiting Ondansetron HCl 4 mg 04/28/19 07:03 Zofran IV ONCE PRN Nausea And Vomiting Oxycodone/Acetaminophen 1 tab 04/28/19 09:05 Percocet 5/325 PO Q6H PRN Pain, Moderate (4-6) Pantoprazole Sodium 40 mg 04/27/19 17:21 04/28/19 15:03 Protonix PO 40 mg QDAY ASCENCION Administration Polyethylene Glycol 17 gm 04/28/19 10:00 04/28/19 11:12 Miralax 3350 PO Not Given QDAY ASCENCION Sodium Chloride 10 ml 04/27/19 22:00 04/28/19 12:25 Sodium Chloride Flush Syringe 10 Ml IV 10 ml BID ASCENCION Administration Sodium Chloride 10 ml 04/27/19 15:05 Sodium Chloride Flush Syringe 10 Ml IV PRN PRN LINE FLUSH Sodium Chloride 10 ml 04/28/19 10:00 Sodium Chloride Flush Syringe 10 Ml IV 04/29/19 23:59 PRN NR Thiamine HCl 100 mg 04/28/19 10:00 04/28/19 15:04 Vitamin B-1 PO 100 mg QDAY ASCENCION Administration Nutrition/Malnutrition Assess - Dietary Evaluation Nutrition/Malnutrition Findings: Nutrition Notes Start: 04/28/19 14:12 Freq: Status: Active Protocol: Document 04/28/19 14:12 RM (Rec: 04/28/19 14:25 RM [id number]) Nutrition Notes Need for Assessment generated from: Low BMI Initial or Follow up Assessment Current Diagnosis Hypertension Other Pertinent Diagnosis GERD, Hx dementia, R hip fracture, S/P trochanteric nailing R femur Current Diet Regular Labs/Tests Reviewed Pertinent Medications Elifrjovani Height 6 ft 3 in Weight 62.505 kg Usual Body Weight 91.82 kg [place] Body Weight (kg) 89.09 BMI 17.2 Weight change and time frame 32% wt loss X 3 years Subjective/Other Information Screened for low BMI. 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 Noted uneaten breakfast at bedside. PT stated he has not had the chance to eat today d/ t procedure earlier today and was not aware the meal was there. However nurse stated that pt was offered earlier and declined it. Stated UBW was between 195 to 210 lbs a few years ago. Noted orbital wasting. Percent of energy/protein needs met: 0%/0% Burn Absent Trauma Absent #1 Nutrition Diagnosis Malnutrition Etiology dementia As Evidenced by Signs and Symptoms BMI 17.2, orbital wasting Is patient on ventilator? No Is Patient Ambulatory and/or Out of Bed No REE-([facility]-confined to bed) 1806.204 Kcal/Kg value to use for calculation 37 Approximate Energy Requirements Using 2313 kcal/Kg Calculation Used for Recommendations Kcal/kg Additional Notes Protein Needs: 75-94g (1.2-1. 5g/kg) Fluid Needs: 1 ml/kcal Nutrition Intervention Change Diet Order: Continue current Add Supplement/Snack (indicate name/kcal Ensure Enlive Vanilla 1 daily /protein ) Provides kCal: 350 Provides Protein (gm) 20 Goal #1 Meet at least 75% of calorie and protein needs via PO and ONS intakes Goal #2 Wt gain/maintenance Anticipated Discharge Needs: Regular diet Follow-Up By: 04/30/19 Additional Comments Follow for PO and ONS intakes
[2019-04-28] MEDS: NORCO 5/325 PO PRN (22:46)
[2019-04-28] MEDS: LOVENOX SUB-Q SCH (22:47)
[2019-04-28] MEDS: ZOFRAN IV PRN (23:29)
[2019-04-29] MEDS: MORPHINE IV PRN ×3 (02:40→17:41)
[2019-04-29] MEDS: SODIUM CHLORIDE FLUSH SYRINGE 10 ML IV SCH ×3 (02:41→21:36)
[2019-04-29 04:35] LABS: Hematocrit 20.2 % (35.5-45.6); Hemoglobin 6.9 gm/dl (11.8-15.2)
[2019-04-29] MEDS: LACTATED RINGERS 1,000 ML IV SCH ×2 (06:23→14:49)
[2019-04-29] MEDS: FLEXERIL PO PRN (06:31)
[2019-04-29] MEDS: ATROVENT IH SCH (09:53)
[2019-04-29] MEDS: VITAMIN B-1 PO SCH (10:03)
[2019-04-29] MEDS: MIRALAX 3350 PO SCH ×2 (10:03→10:18)
[2019-04-29] MEDS: ARICEPT PO SCH (10:04)
[2019-04-29] MEDS: PROTONIX PO SCH (10:04)
[2019-04-29] MEDS: HABITROL TD SCH (10:04)
[2019-04-29] MEDS: FOLVITE PO SCH (10:04)
[2019-04-29] MEDS: THERAGRAN Tab PO SCH (10:06)
[2019-04-29] MEDS: NORVASC PO SCH (10:09)
[2019-04-29] MEDS: PERCOCET 5/325 PO PRN (12:42)
[2019-04-29] MEDS ORDERED: NACL 0.9% 500 ML 500 ML IV SCH (15:05)
--- NOTE | 2019-04-29 15:06 | Progress Note ---
Assessment and Plan Assessment and plan: 63-year-old man who presents with right hip fracture Diagnoses Right hip fracture History of dementia Homelessness Peptic ulcer disease Chronic pain in back and l foot Ambulatory dysfunction, uses a walker at baseline Tobacco abuse, currently every day smoker Moderate malnutrition Plan sp closed reduction on 04/28, pain meds Case management consult as patient will likely need rehabilitation placement after surgery Patient has been counseled on tobacco cessation greater than 10 minutes, nicotine patches when necessary PPI for history of GERD and peptic ulcer disease Dietitian consult, encouraged on balanced diet DVT prophylaxis with Lovenox This boy awaiting placement, patient is currently homeless but does have insurance History Interval history: Right hip pain is improved Review of systems Constitutional: No fevers, no malaise, no joint pains CVS: No chest pain, no orthopnea, no dyspnea on exertion, no pedal edema GI: No abdominal pain, no diarrhea, no vomiting, no constipation Respiratory: no wheezing, no coughing Hospitalist Physical - Physical exam Narrative exam: General.: Appears well, no distress, nontoxic HEENT: Moist mucous membranes, extraocular muscles intact, no lymphadenopathy Neck: supple Cardiac: S1-S2 heard Lungs: clear to auscultation bilaterally Abdomen: soft , nontender, nondistended, bowel sounds positive Extremities: no edema clubbing or cyanosis Skin: no rash or lesions Neurologic: no gross focal deficits Psych: calm, and cooperative - Constitutional Vitals: Temp Pulse Resp BP Pulse Ox 98.5 F 80 16 91/63 92 04/29/19 10:57 04/29/19 10:57 04/29/19 10:57 04/29/19 10:57 04/29/19 10:57 General appearance: Present: no acute distress, well-nourished Results - Labs CBC & Chem 7: 04/30/19 03:48 04/30/19 03:48 Labs: Laboratory Last Values WBC 5.6 K/mm3 (4.5-11.0) 04/27/19 08:20 RBC 4.13 M/mm3 (3.65-5.03) 04/27/19 08:20 Hgb 6.9 gm/dl (11.8-15.2) L D 04/29/19 03:33 Hct 20.2 % (35.5-45.6) L D 04/29/19 03:33 MCV 91 fl (84-94) 04/27/19 08:20 MCH 31 pg (28-32) 04/27/19 08:20 MCHC 34 % (32-34) 04/27/19 08:20 RDW 15.8 % (13.2-15.2) H 04/27/19 08:20 Plt Count 196 K/mm3 (140-440) 04/27/19 08:20 Lymph % (Auto) 30.3 % (13.4-35.0) 04/27/19 08:20 [place] % (Auto) 7.4 % (0.0-7.3) H 04/27/19 08:20 Eos % (Auto) 10.3 % (0.0-4.3) H 04/27/19 08:20 Baso % (Auto) Independent Contractor 04/27/19 08:20 Lymph # 1.7 K/mm3 (1.2-5.4) 04/27/19 08:20 [place] # 0.4 K/mm3 (0.0-0.8) 04/27/19 08:20 Eos # 0.6 K/mm3 (0.0-0.4) H 04/27/19 08:20 Baso # 0.1 K/mm3 (0.0-0.1) 04/27/19 08:20 Seg Neutrophils % 50.9 % (40.0-70.0) 04/27/19 08:20 Seg Neutrophils # 2.9 K/mm3 (1.8-7.7) 04/27/19 08:20 PT 13.3 Sec. (12.2-14.9) 04/28/19 07:35 INR 1.04 (0.87-1.13) 04/28/19 07:35 APTT 30.3 Sec. (24.2-36.6) 04/28/19 07:35 Sodium 134 mmol/L (137-145) L 04/27/19 08:20 Potassium 4.6 mmol/L (3.6-5.0) 04/27/19 08:20 Chloride 99.4 mmol/L (98-107) 04/27/19 08:20 Carbon Dioxide 25 mmol/L (22-30) 04/27/19 08:20 14 mmol/L 04/27/19 08:20 BUN 18 mg/dL (9-20) 04/27/19 08:20 1.2 mg/dL (0.8-1.5) 04/27/19 08:20 Estimated GFR > 60 ml/min 04/27/19 08:20 15 % 04/27/19 08:20 Glucose 97 mg/dL (75-100) 04/27/19 08:20 Calcium 9.2 mg/dL (8.4-10.2) 04/27/19 08:20 Blood Type O POSITIVE 04/28/19 07:35 Antibody Screen Negative 04/28/19 07:35 Active Medications - Current Medications Current Medications: Generic Name Dose Route Start Last Admin Trade Name Freq PRN Reason Stop Dose Admin Acetaminophen 650 mg 04/27/19 15:05 Tylenol PO Q4H PRN Pain MILD(1-3)/Fever >100.5/AGARWAL Acetaminophen/Hydrocodone Bitart 1 each 04/27/19 14:58 04/28/19 22:46 [place] 5/325 PO 1 each Q6HR PRN Administration Pain Albuterol 2.5 mg 04/27/19 15:05 Proventil IH Q4HRT PRN Shortness Of Breath Amlodipine Besylate 10 mg 04/28/19 10:00 04/29/19 10:09 Norvasc PO 10 mg DAILY ASCENCION Administration Cyclobenzaprine HCl 5 mg 04/27/19 16:47 04/29/19 06:31 Flexeril PO 5 mg Q8H PRN Administration Muscle Spasm Donepezil HCl 10 mg 04/28/19 10:00 04/29/19 10:04 Aricept PO 10 mg DAILY ASCENCION Administration Enoxaparin Sodium 40 mg 04/27/19 22:00 04/28/19 22:47 Lovenox SUB-Q 40 mg QDAY@2200 ASCENCION Administration Folic Acid 1 mg 04/28/19 10:00 04/29/19 10:04 Folvite PO 1 mg QDAY ASCENCION Administration Lactated Ringer's 1,000 mls @ 100 mls/hr 04/28/19 08:00 04/29/19 14:49 Lactated Ringers IV 100 mls/hr DIRECT ASCENCION Administration Ipratropium [place] 1 mg 04/28/19 10:00 04/29/19 09:53 Atrovent IH 1 mg DAILY ASCENCION Administration Morphine Sulfate 4 mg 04/27/19 13:04 04/28/19 23:28 Morphine IV 4 mg Q4H PRN Administration Pain , Severe (7-10) Morphine Sulfate 2 mg 04/28/19 09:05 04/29/19 10:02 Morphine IV 2 mg Q4H PRN Administration Pain, Moderate (4-6) Multivitamins 1 each 04/28/19 10:00 04/29/19 10:06 Theragran Tab PO 1 each QDAY ASCENCION Administration Nicotine 14 mg 04/27/19 18:45 04/29/19 10:04 Habitrol TD 14 mg QDAY ASCENCION Administration Ondansetron HCl 4 mg 04/27/19 15:05 04/28/19 23:29 Zofran IV 4 mg Q8H PRN Administration Nausea And Vomiting Ondansetron HCl 4 mg 04/28/19 07:03 Zofran IV ONCE PRN Nausea And Vomiting Oxycodone/Acetaminophen 1 tab 04/28/19 09:05 04/29/19 12:42 Percocet 5/325 PO 1 tab Q6H PRN Administration Pain, Moderate (4-6) Pantoprazole Sodium 40 mg 04/27/19 17:21 04/29/19 10:04 Protonix PO 40 mg QDAY ASCENCION Administration Polyethylene Glycol 17 gm 04/28/19 10:00 04/29/19 10:18 Miralax 3350 PO Not Given QDAY ASCENCION Sodium Chloride 10 ml 04/27/19 22:00 04/29/19 10:06 Sodium Chloride Flush Syringe 10 Ml IV 10 ml BID ASCENCION Administration Sodium Chloride 10 ml 04/27/19 15:05 Sodium Chloride Flush Syringe 10 Ml IV PRN PRN LINE FLUSH Sodium Chloride 10 ml 04/28/19 10:00 Sodium Chloride Flush Syringe 10 Ml IV 04/29/19 23:59 PRN NR Thiamine HCl 100 mg 04/28/19 10:00 04/29/19 10:03 Vitamin B-1 PO 100 mg QDAY ASCENCION Administration Nutrition/Malnutrition Assess - Dietary Evaluation Nutrition/Malnutrition Findings: Nutrition Notes Start: 04/28/19 14:12 Freq: Status: Active Protocol: Document 04/28/19 14:12 RM (Rec: 04/28/19 14:25 RM [id number]) Nutrition Notes Need for Assessment generated from: Low BMI Initial or Follow up Assessment Current Diagnosis Hypertension Other Pertinent Diagnosis GERD, Hx dementia, R hip fracture, S/P trochanteric nailing R femur Current Diet Regular Labs/Tests Reviewed Pertinent Medications Elifran Height 6 ft 3 in Weight 62.505 kg Usual Body Weight 91.82 kg [place] Body Weight (kg) 89.09 BMI 17.2 Weight change and time frame 32% wt loss X 3 years Subjective/Other Information Screened for low BMI. 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 Noted uneaten breakfast at bedside. PT stated he has not had the chance to eat today d/ t procedure earlier today and was not aware the meal was there. However nurse stated that pt was offered earlier and declined it. Stated UBW was between 195 to 210 lbs a few years ago. Noted orbital wasting. Percent of energy/protein needs met: 0%/0% Burn Absent Trauma Absent #1 Nutrition Diagnosis Malnutrition Etiology dementia As Evidenced by Signs and Symptoms BMI 17.2, orbital wasting Is patient on ventilator? No Is Patient Ambulatory and/or Out of Bed No REE-([facility]-confined to bed) 1806.204 Kcal/Kg value to use for calculation 37 Approximate Energy Requirements Using 2313 kcal/Kg Calculation Used for Recommendations Kcal/kg Additional Notes Protein Needs: 75-94g (1.2-1. 5g/kg) Fluid Needs: 1 ml/kcal Nutrition Intervention Change Diet Order: Continue current Add Supplement/Snack (indicate name/kcal Ensure Enlive Vanilla 1 daily /protein ) Provides kCal: 350 Provides Protein (gm) 20 Goal #1 Meet at least 75% of calorie and protein needs via PO and ONS intakes Goal #2 Wt gain/maintenance Anticipated Discharge Needs: Regular diet Follow-Up By: 04/30/19 Additional Comments Follow for PO and ONS intakes
[2019-04-29] MEDS: LOVENOX SUB-Q SCH (21:36)
[2019-04-30] MEDS: MORPHINE IV PRN ×5 (04:47→20:23)
[2019-04-30] MEDS: FLEXERIL PO PRN ×3 (04:47→22:34)
[2019-04-30 04:52] LABS: Basophils % (Auto) 0.3 % (0.0-1.8); Eosinophils # (Auto) 0.2 K/mm3 (0.0-0.4); Eosinophils % (Auto) 4.1 % (0.0-4.3); Hematocrit 22.5 % (35.5-45.6); Hemoglobin 7.8 gm/dl (11.8-15.2); Lymphocytes % (Auto) 24.8 % (13.4-35.0); Mean Corpuscular HGB Conc 35 % (32-34); Mean Corpuscular Volume 90 fl (84-94); Monocytes # (Auto) 0.4 K/mm3 (0.0-0.8); Monocytes % (Auto) 8.4 % (0.0-7.3); Platelet Count 127 K/mm3 (140-440); Red Blood Count 2.51 M/mm3 (3.65-5.03); Red Cell Distribution Width 15.3 % (13.2-15.2)
[2019-04-30 05:11] LABS: BUN/Creatinine Ratio 18; Blood Urea Nitrogen 18 mg/dL (9-20); Calcium 8.2 mg/dL (8.4-10.2); Hemolysis Index 14
[2019-04-30] MEDS: LACTATED RINGERS 1,000 ML IV SCH ×2 (05:14→22:34)
--- NOTE | 2019-04-30 09:08 | Progress Note ---
Assessment and Plan Assessment and plan: 63-year-old man who presents with right hip fracture Diagnoses Right hip fracture History of dementia Homelessness Peptic ulcer disease Chronic pain in back and l foot Ambulatory dysfunction, uses a walker at baseline Tobacco abuse, currently every day smoker Moderate malnutrition Plan sp closed reduction on 04/28, pain meds Case management consult as patient will likely need rehabilitation placement after surgery Patient has been counseled on tobacco cessation greater than 10 minutes, nicotine patches when necessary PPI for history of GERD and peptic ulcer disease Dietitian consult, encouraged on balanced diet DVT prophylaxis with Lovenox This boy awaiting placement, patient is currently homeless but does have insurance History Interval history: Right hip pain is improved Review of systems Constitutional: No fevers, no malaise, no joint pains CVS: No chest pain, no orthopnea, no dyspnea on exertion, no pedal edema GI: No abdominal pain, no diarrhea, no vomiting, no constipation Respiratory: no wheezing, no coughing Hospitalist Physical - Physical exam Narrative exam: General.: Appears well, no distress, nontoxic HEENT: Moist mucous membranes, extraocular muscles intact, no lymphadenopathy Neck: supple Cardiac: S1-S2 heard Lungs: clear to auscultation bilaterally Abdomen: soft , nontender, nondistended, bowel sounds positive Extremities: no edema clubbing or cyanosis Skin: no rash or lesions Neurologic: no gross focal deficits Psych: calm, and cooperative - Constitutional Vitals: Temp Pulse Resp BP Pulse Ox 98.2 F 101 H 18 129/84 82 L 04/30/19 07:58 04/30/19 07:58 04/30/19 07:58 04/30/19 07:58 04/30/19 07:58 General appearance: Present: no acute distress, well-nourished Results - Labs CBC & Chem 7: 04/30/19 03:48 04/30/19 03:48 Labs: Laboratory Last Values WBC 4.2 K/mm3 (4.5-11.0) L 04/30/19 03:48 RBC 2.51 M/mm3 (3.65-5.03) L 04/30/19 03:48 Hgb 7.8 gm/dl (11.8-15.2) L 04/30/19 03:48 Hct 22.5 % (35.5-45.6) L 04/30/19 03:48 MCV 90 fl (84-94) 04/30/19 03:48 MCH 31 pg (28-32) 04/30/19 03:48 MCHC 35 % (32-34) H 04/30/19 03:48 RDW 15.3 % (13.2-15.2) H 04/30/19 03:48 Plt Count 127 K/mm3 (140-440) L 04/30/19 03:48 Lymph % (Auto) 24.8 % (13.4-35.0) 04/30/19 03:48 [place] % (Auto) 8.4 % (0.0-7.3) H 04/30/19 03:48 Eos % (Auto) 4.1 % (0.0-4.3) 04/30/19 03:48 Baso % (Auto) 0.3 % (0.0-1.8) 04/30/19 03:48 Lymph # 1.0 K/mm3 (1.2-5.4) L 04/30/19 03:48 [place] # 0.4 K/mm3 (0.0-0.8) 04/30/19 03:48 Eos # 0.2 K/mm3 (0.0-0.4) 04/30/19 03:48 Baso # 0.0 K/mm3 (0.0-0.1) 04/30/19 03:48 Seg Neutrophils % 62.4 % (40.0-70.0) 04/30/19 03:48 Seg Neutrophils # 2.6 K/mm3 (1.8-7.7) 04/30/19 03:48 PT 13.3 Sec. (12.2-14.9) 04/28/19 07:35 INR 1.04 (0.87-1.13) 04/28/19 07:35 APTT 30.3 Sec. (24.2-36.6) 04/28/19 07:35 Sodium 139 mmol/L (137-145) 04/30/19 03:48 Potassium 4.5 mmol/L (3.6-5.0) 04/30/19 03:48 Chloride 104.7 mmol/L (98-107) 04/30/19 03:48 Carbon Dioxide 26 mmol/L (22-30) 04/30/19 03:48 13 mmol/L 04/30/19 03:48 BUN 18 mg/dL (9-20) 04/30/19 03:48 1.0 mg/dL (0.8-1.5) 04/30/19 03:48 Estimated GFR > 60 ml/min 04/30/19 03:48 18 % 04/30/19 03:48 Glucose 107 mg/dL (75-100) H 04/30/19 03:48 Calcium 8.2 mg/dL (8.4-10.2) L 04/30/19 03:48 Blood Type O POSITIVE 04/28/19 07:35 Antibody Screen Negative 04/28/19 07:35 Crossmatch See Detail 04/28/19 07:35 Active Medications - Current Medications Current Medications: Generic Name Dose Route Start Last Admin Trade Name Freq PRN Reason Stop Dose Admin Acetaminophen 650 mg 04/27/19 15:05 Tylenol PO Q4H PRN Pain MILD(1-3)/Fever >100.5/AGARWAL Acetaminophen/Hydrocodone Bitart 1 each 04/27/19 14:58 04/28/19 22:46 [place] 5/325 PO 1 each Q6HR PRN Administration Pain Albuterol 2.5 mg 04/27/19 15:05 Proventil IH Q4HRT PRN Shortness Of Breath Amlodipine Besylate 10 mg 04/28/19 10:00 04/29/19 10:09 Norvasc PO 10 mg DAILY ASCENCION Administration Cyclobenzaprine HCl 5 mg 04/27/19 16:47 04/30/19 04:47 Flexeril PO 5 mg Q8H PRN Administration Muscle Spasm Donepezil HCl 10 mg 04/28/19 10:00 04/29/19 10:04 Aricept PO 10 mg DAILY ASCENCION Administration Enoxaparin Sodium 40 mg 04/27/19 22:00 04/29/19 21:36 Lovenox SUB-Q 40 mg QDAY@2200 ASCENCION Administration Folic Acid 1 mg 04/28/19 10:00 04/29/19 10:04 Folvite PO 1 mg QDAY ASCENCION Administration Lactated Ringer's 1,000 mls @ 100 mls/hr 04/28/19 08:00 04/30/19 05:14 Lactated Ringers IV 100 mls/hr DIRECT ASCENCION Administration Ipratropium [place] 1 mg 04/28/19 10:00 04/29/19 09:53 Atrovent IH 1 mg DAILY ASCENCION Administration Morphine Sulfate 4 mg 04/27/19 13:04 04/28/19 23:28 Morphine IV 4 mg Q4H PRN Administration Pain , Severe (7-10) Morphine Sulfate 2 mg 04/28/19 09:05 04/30/19 04:47 Morphine IV 2 mg Q4H PRN Administration Pain, Moderate (4-6) Multivitamins 1 each 04/28/19 10:00 04/29/19 10:06 Theragran Tab PO 1 each QDAY ASCENCION Administration Nicotine 14 mg 04/27/19 18:45 04/29/19 10:04 Habitrol TD 14 mg QDAY ASCENCION Administration Ondansetron HCl 4 mg 04/27/19 15:05 04/28/19 23:29 Zofran IV 4 mg Q8H PRN Administration Nausea And Vomiting Ondansetron HCl 4 mg 04/28/19 07:03 Zofran IV ONCE PRN Nausea And Vomiting Oxycodone/Acetaminophen 1 tab 04/28/19 09:05 04/29/19 12:42 Percocet 5/325 PO 1 tab Q6H PRN Administration Pain, Moderate (4-6) Pantoprazole Sodium 40 mg 04/27/19 17:21 04/29/19 10:04 Protonix PO 40 mg QDAY ASCENCION Administration Polyethylene Glycol 17 gm 04/28/19 10:00 04/29/19 10:18 Miralax 3350 PO Not Given QDAY ASCENCION Sodium Chloride 10 ml 04/27/19 22:00 04/29/19 21:36 Sodium Chloride Flush Syringe 10 Ml IV 10 ml BID ASCENCION Administration Sodium Chloride 10 ml 04/27/19 15:05 Sodium Chloride Flush Syringe 10 Ml IV PRN PRN LINE FLUSH Thiamine HCl 100 mg 04/28/19 10:00 04/29/19 10:03 Vitamin B-1 PO 100 mg QDAY ASCENCION Administration Nutrition/Malnutrition Assess - Dietary Evaluation Nutrition/Malnutrition Findings: Nutrition Notes Start: 04/28/19 14:12 Freq: Status: Active Protocol: Document 04/28/19 14:12 RM (Rec: 04/28/19 14:25 RM [id number]) Nutrition Notes Need for Assessment generated from: Low BMI Initial or Follow up Assessment Current Diagnosis Hypertension Other Pertinent Diagnosis GERD, Hx dementia, R hip fracture, S/P trochanteric nailing R femur Current Diet Regular Labs/Tests Reviewed Pertinent Medications [place] Height 6 ft 3 in Weight 62.505 kg Usual Body Weight 91.82 kg [place] Body Weight (kg) 89.09 BMI 17.2 Weight change and time frame 32% wt loss X 3 years Subjective/Other Information Screened for low BMI. 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 Noted uneaten breakfast at bedside. PT stated he has not had the chance to eat today d/ t procedure earlier today and was not aware the meal was there. However nurse stated that pt was offered earlier and declined it. Stated UBW was between 195 to 210 lbs a few years ago. Noted orbital wasting. Percent of energy/protein needs met: 0%/0% Burn Absent Trauma Absent #1 Nutrition Diagnosis Malnutrition Etiology dementia As Evidenced by Signs and Symptoms BMI 17.2, orbital wasting Is patient on ventilator? No Is Patient Ambulatory and/or Out of Bed No REE-([facility]-confined to bed) 1806.204 Kcal/Kg value to use for calculation 37 Approximate Energy Requirements Using 2313 kcal/Kg Calculation Used for Recommendations Kcal/kg Additional Notes Protein Needs: 75-94g (1.2-1. 5g/kg) Fluid Needs: 1 ml/kcal Nutrition Intervention Change Diet Order: Continue current Add Supplement/Snack (indicate name/kcal Ensure Enlive Vanilla 1 daily /protein ) Provides kCal: 350 Provides Protein (gm) 20 Goal #1 Meet at least 75% of calorie and protein needs via PO and ONS intakes Goal #2 Wt gain/maintenance Anticipated Discharge Needs: Regular diet Follow-Up By: 04/30/19 Additional Comments Follow for PO and ONS intakes
[2019-04-30] MEDS: THERAGRAN Tab PO SCH (09:31)
[2019-04-30] MEDS: NORVASC PO SCH (09:31)
[2019-04-30] MEDS: VITAMIN B-1 PO SCH (09:31)
[2019-04-30] MEDS: FOLVITE PO SCH (09:31)
[2019-04-30] MEDS: PROTONIX PO SCH (09:31)
[2019-04-30] MEDS: MIRALAX 3350 PO SCH (09:32)
[2019-04-30] MEDS: ARICEPT PO SCH (09:32)
[2019-04-30] MEDS: HABITROL TD SCH (09:32)
[2019-04-30] MEDS: ATROVENT IH SCH (10:14)
[2019-04-30] MEDS ORDERED: PROVENTIL IH PRN (10:25)
[2019-04-30] MEDS: PERCOCET 5/325 PO PRN (12:23)
[2019-04-30] MEDS: SODIUM CHLORIDE FLUSH SYRINGE 10 ML IV SCH ×2 (17:07→22:34)
[2019-04-30] MEDS: PULMICORT IH SCH (19:37)
[2019-04-30] MEDS: BROVANA NEBU IH SCH (19:37)
[2019-04-30] MEDS: LOVENOX SUB-Q SCH (22:35)
[2019-05-01] MEDS: FLEXERIL PO PRN ×3 (02:59→22:40)
[2019-05-01] MEDS: MORPHINE IV PRN ×4 (02:59→22:40)
[2019-05-01] MEDS: PULMICORT IH SCH ×2 (08:47→21:28)
[2019-05-01] MEDS: BROVANA NEBU IH SCH ×2 (08:47→21:28)
[2019-05-01] MEDS: ARICEPT PO SCH (10:47)
[2019-05-01] MEDS: PROTONIX PO SCH (11:32)
[2019-05-01] MEDS: NORCO 5/325 PO PRN (11:33)
[2019-05-01] MEDS: NORVASC PO SCH (11:33)
[2019-05-01] MEDS: VITAMIN B-1 PO SCH (11:33)
[2019-05-01] MEDS: FOLVITE PO SCH (11:33)
[2019-05-01] MEDS: HABITROL TD SCH (11:34)
[2019-05-01] MEDS: THERAGRAN Tab PO SCH (11:34)
[2019-05-01] MEDS: MIRALAX 3350 PO SCH (11:46)
[2019-05-01] MEDS: SODIUM CHLORIDE FLUSH SYRINGE 10 ML IV SCH ×2 (11:46→23:21)
--- NOTE | 2019-05-01 15:45 | Progress Note ---
Assessment and Plan Assessment and plan: 63-year-old man who presents with right hip fracture Diagnoses Right hip fracture History of dementia Homelessness Peptic ulcer disease Chronic pain in back and l foot Ambulatory dysfunction, uses a walker at baseline Tobacco abuse, currently every day smoker Moderate malnutrition Plan sp closed reduction on 04/28, pain meds Case management consult as patient will likely need rehabilitation placement after surgery Patient has been counseled on tobacco cessation greater than 10 minutes, nicotine patches when necessary PPI for history of GERD and peptic ulcer disease Dietitian consult, encouraged on balanced diet DVT prophylaxis with Lovenox cont PT This boy awaiting placement, patient is currently homeless but does have insurance History Interval history: Right hip pain is improved Review of systems Constitutional: No fevers, no malaise, no joint pains CVS: No chest pain, no orthopnea, no dyspnea on exertion, no pedal edema GI: No abdominal pain, no diarrhea, no vomiting, no constipation Respiratory: no wheezing, no coughing Hospitalist Physical - Physical exam Narrative exam: General.: Appears well, no distress, nontoxic HEENT: Moist mucous membranes, extraocular muscles intact, no lymphadenopathy Neck: supple Cardiac: S1-S2 heard Lungs: clear to auscultation bilaterally Abdomen: soft , nontender, nondistended, bowel sounds positive Extremities: no edema clubbing or cyanosis Skin: no rash or lesions Neurologic: no gross focal deficits Psych: calm, and cooperative - Constitutional Vitals: Temp Pulse Resp BP Pulse Ox 98.0 F 98 H 20 97/59 100 05/01/19 12:26 05/01/19 12:26 05/01/19 12:26 05/01/19 12:26 05/01/19 12:26 General appearance: Present: no acute distress, well-nourished Results - Labs CBC & Chem 7: 04/30/19 03:48 04/30/19 03:48 Labs: Laboratory Last Values WBC 4.2 K/mm3 (4.5-11.0) L 04/30/19 03:48 RBC 2.51 M/mm3 (3.65-5.03) L 04/30/19 03:48 Hgb 7.8 gm/dl (11.8-15.2) L 04/30/19 03:48 Hct 22.5 % (35.5-45.6) L 04/30/19 03:48 MCV 90 fl (84-94) 04/30/19 03:48 MCH 31 pg (28-32) 04/30/19 03:48 MCHC 35 % (32-34) H 04/30/19 03:48 RDW 15.3 % (13.2-15.2) H 04/30/19 03:48 Plt Count 127 K/mm3 (140-440) L 04/30/19 03:48 Lymph % (Auto) 24.8 % (13.4-35.0) 04/30/19 03:48 [place] % (Auto) 8.4 % (0.0-7.3) H 04/30/19 03:48 Eos % (Auto) 4.1 % (0.0-4.3) 04/30/19 03:48 Baso % (Auto) 0.3 % (0.0-1.8) 04/30/19 03:48 Lymph # 1.0 K/mm3 (1.2-5.4) L 04/30/19 03:48 [place] # 0.4 K/mm3 (0.0-0.8) 04/30/19 03:48 Eos # 0.2 K/mm3 (0.0-0.4) 04/30/19 03:48 Baso # 0.0 K/mm3 (0.0-0.1) 04/30/19 03:48 Seg Neutrophils % 62.4 % (40.0-70.0) 04/30/19 03:48 Seg Neutrophils # 2.6 K/mm3 (1.8-7.7) 04/30/19 03:48 PT 13.3 Sec. (12.2-14.9) 04/28/19 07:35 INR 1.04 (0.87-1.13) 04/28/19 07:35 APTT 30.3 Sec. (24.2-36.6) 04/28/19 07:35 Sodium 139 mmol/L (137-145) 04/30/19 03:48 Potassium 4.5 mmol/L (3.6-5.0) 04/30/19 03:48 Chloride 104.7 mmol/L (98-107) 04/30/19 03:48 Carbon Dioxide 26 mmol/L (22-30) 04/30/19 03:48 13 mmol/L 04/30/19 03:48 BUN 18 mg/dL (9-20) 04/30/19 03:48 1.0 mg/dL (0.8-1.5) 04/30/19 03:48 Estimated GFR > 60 ml/min 04/30/19 03:48 18 % 04/30/19 03:48 Glucose 107 mg/dL (75-100) H 04/30/19 03:48 Calcium 8.2 mg/dL (8.4-10.2) L 04/30/19 03:48 Blood Type O POSITIVE 04/28/19 07:35 Antibody Screen Negative 04/28/19 07:35 Crossmatch See Detail 04/28/19 07:35 Active Medications - Current Medications Current Medications: Generic Name Dose Route Start Last Admin Trade Name Freq PRN Reason Stop Dose Admin Acetaminophen 650 mg 04/27/19 15:05 Tylenol PO Q4H PRN Pain MILD(1-3)/Fever >100.5/AGARWAL Acetaminophen/Hydrocodone Bitart 1 each 04/27/19 14:58 05/01/19 11:33 [place] 5/325 PO 1 each Q6HR PRN Administration Pain Albuterol 2.5 mg 04/30/19 10:25 Proventil IH Q4HRT PRN Shortness Of Breath Amlodipine Besylate 10 mg 04/28/19 10:00 05/01/19 11:33 Norvasc PO 10 mg DAILY ASCENCION Administration Arformoterol Tartrate 15 mcg 04/30/19 20:00 05/01/19 08:47 Brovana Nebu IH 15 mcg Q12HRT ASCENCION Administration Budesonide 0.5 mg 04/30/19 20:00 05/01/19 08:47 Pulmicort IH 0.5 mg Q12HRT ASCENCION Administration Cyclobenzaprine HCl 5 mg 04/27/19 16:47 05/01/19 11:47 Flexeril PO 5 mg Q8H PRN Administration Muscle Spasm Donepezil HCl 10 mg 04/28/19 10:00 05/01/19 10:47 Aricept PO 10 mg DAILY ASCENCION Administration Enoxaparin Sodium 40 mg 04/27/19 22:00 04/30/19 22:35 Lovenox SUB-Q 40 mg QDAY@2200 ASCENCION Administration Folic Acid 1 mg 04/28/19 10:00 05/01/19 11:33 Folvite PO 1 mg QDAY ASCENCION Administration Lactated Ringer's 1,000 mls @ 100 mls/hr 04/28/19 08:00 04/30/19 22:34 Lactated Ringers IV 100 mls/hr DIRECT ASCENCION Administration Morphine Sulfate 4 mg 04/27/19 13:04 05/01/19 02:59 Morphine IV 4 mg Q4H PRN Administration Pain , Severe (7-10) Morphine Sulfate 2 mg 04/28/19 09:05 04/30/19 20:21 Morphine IV 2 mg Q4H PRN Administration Pain, Moderate (4-6) Multivitamins 1 each 04/28/19 10:00 05/01/19 11:34 Theragran Tab PO 1 each QDAY ASCENCION Administration Nicotine 14 mg 04/27/19 18:45 05/01/19 11:34 Habitrol TD 14 mg QDAY ASCENCION Administration Ondansetron HCl 4 mg 04/27/19 15:05 04/28/19 23:29 Zofran IV 4 mg Q8H PRN Administration Nausea And Vomiting Oxycodone/Acetaminophen 1 tab 04/28/19 09:05 04/30/19 12:23 Percocet 5/325 PO 1 tab Q6H PRN Administration Pain, Moderate (4-6) Pantoprazole Sodium 40 mg 04/27/19 17:21 05/01/19 11:32 Protonix PO 40 mg QDAY ASCENCION Administration Polyethylene Glycol 17 gm 04/28/19 10:00 05/01/19 11:46 Miralax 3350 PO 17 gm QDAY ASCENCION Administration Sodium Chloride 10 ml 04/27/19 22:00 05/01/19 11:46 Sodium Chloride Flush Syringe 10 Ml IV 10 ml BID ASCENCION Administration Sodium Chloride 10 ml 04/27/19 15:05 Sodium Chloride Flush Syringe 10 Ml IV PRN PRN LINE FLUSH Thiamine HCl 100 mg 04/28/19 10:00 05/01/19 11:33 Vitamin B-1 PO 100 mg QDAY ASCECNION Administration Nutrition/Malnutrition Assess - Dietary Evaluation Nutrition/Malnutrition Findings: Nutrition Notes Start: 04/28/19 14:12 Freq: Status: Active Protocol: Document 04/30/19 14:24 LP (Rec: 04/30/19 14:27 LP [id number]) Nutrition Notes Initial or Follow up Reassessment Current Diagnosis Hypertension Other Pertinent Diagnosis GERD, Hx dementia, R hip fracture, S/P trochanteric nailing R femur Current Diet Regular with Ensure Enlive daily Labs/Tests Reviewed Pertinent Medications Reviewed Height 6 ft 3 in Weight 62.505 kg [place] Body Weight (kg) 89.09 BMI 17.2 Subjective/Other Information Pt states eating well. Observed 100% of breakfast and Ensure consumed. Percent of energy/protein needs met: 100%/100% Burn Absent Trauma Absent #1 Nutrition Diagnosis Malnutrition Diagnosis Progress(for reassessment Continues documentation) Is patient on ventilator? No Is Patient Ambulatory and/or Out of Bed No REE-([facility]-confined to bed) 1806.204 Kcal/Kg value to use for calculation 37 Approximate Energy Requirements Using 2313 kcal/Kg Calculation Used for Recommendations Kcal/kg Additional Notes Protein Needs: 75-94g (1.2-1. 5g/kg) Fluid Needs: 1 ml/kcal Nutrition Intervention Change Diet Order: Continue current Add Supplement/Snack (indicate name/kcal Ensure Enlive Vanilla BID /protein ) Provides kCal: 700 Provides Protein (gm) 40 Goal #1 Meet at least 75% of calorie and protein needs via PO and ONS intakes Goal #2 Wt gain/maintenance Anticipated Discharge Needs: Regular diet with ONS daily to BID Follow-Up By: 05/06/19 Additional Comments Follow for stable intakes
[2019-05-01] MEDS: LACTATED RINGERS 1,000 ML IV SCH (19:13)
[2019-05-01] MEDS: LOVENOX SUB-Q SCH (22:41)
[2019-05-02] MEDS: PERCOCET 5/325 PO PRN ×3 (01:36→23:40)
[2019-05-02] MEDS: NORCO 5/325 PO PRN ×2 (05:44→15:27)
[2019-05-02] MEDS: LACTATED RINGERS 1,000 ML IV SCH ×2 (05:55→16:06)
[2019-05-02] MEDS: PULMICORT IH SCH ×2 (08:35→20:29)
[2019-05-02] MEDS: BROVANA NEBU IH SCH ×2 (08:35→20:29)
[2019-05-02] MEDS: HABITROL TD SCH (09:11)
[2019-05-02] MEDS: VITAMIN B-1 PO SCH (09:12)
[2019-05-02] MEDS: THERAGRAN Tab PO SCH (09:12)
[2019-05-02] MEDS: PROTONIX PO SCH (09:12)
[2019-05-02] MEDS: FOLVITE PO SCH (09:12)
[2019-05-02] MEDS: MIRALAX 3350 PO SCH (09:12)
[2019-05-02] MEDS: NORVASC PO SCH (09:12)
[2019-05-02] MEDS: ARICEPT PO SCH (09:21)
[2019-05-02] MEDS: FLEXERIL PO PRN ×2 (13:03→23:39)
[2019-05-02] MEDS: SODIUM CHLORIDE FLUSH SYRINGE 10 ML IV SCH ×2 (16:04→21:28)
--- NOTE | 2019-05-02 16:19 | Progress Note ---
Assessment and Plan Assessment and plan: 63-year-old man who presents with right hip fracture Diagnoses Right hip fracture History of dementia Homelessness Peptic ulcer disease Chronic pain in back and l foot Ambulatory dysfunction, uses a walker at baseline Tobacco abuse, currently every day smoker Moderate malnutrition Plan sp closed reduction on 04/28, pain meds Case management consult as patient will likely need rehabilitation placement after surgery Patient has been counseled on tobacco cessation greater than 10 minutes, nicotine patches when necessary PPI for history of GERD and peptic ulcer disease Dietitian consult, encouraged on balanced diet DVT prophylaxis with Lovenox cont PT This boy awaiting placement, patient is currently homeless but does have insurance History Interval history: Right hip pain is improved Review of systems Constitutional: No fevers, no malaise, no joint pains CVS: No chest pain, no orthopnea, no dyspnea on exertion, no pedal edema GI: No abdominal pain, no diarrhea, no vomiting, no constipation Respiratory: no wheezing, no coughing Hospitalist Physical - Physical exam Narrative exam: General.: Appears well, no distress, nontoxic HEENT: Moist mucous membranes, extraocular muscles intact, no lymphadenopathy Neck: supple Cardiac: S1-S2 heard Lungs: clear to auscultation bilaterally Abdomen: soft , nontender, nondistended, bowel sounds positive Extremities: no edema clubbing or cyanosis Skin: no rash or lesions Neurologic: no gross focal deficits Psych: calm, and cooperative - Constitutional Vitals: Temp Pulse Resp BP Pulse Ox 97.7 F 107 H 20 122/85 99 05/02/19 12:00 05/02/19 12:00 05/02/19 12:00 05/02/19 12:00 05/02/19 12:00 General appearance: Present: no acute distress, well-nourished Results - Labs CBC & Chem 7: 04/30/19 03:48 04/30/19 03:48 Labs: Laboratory Last Values WBC 4.2 K/mm3 (4.5-11.0) L 04/30/19 03:48 RBC 2.51 M/mm3 (3.65-5.03) L 04/30/19 03:48 Hgb 7.8 gm/dl (11.8-15.2) L 04/30/19 03:48 Hct 22.5 % (35.5-45.6) L 04/30/19 03:48 MCV 90 fl (84-94) 04/30/19 03:48 MCH 31 pg (28-32) 04/30/19 03:48 MCHC 35 % (32-34) H 04/30/19 03:48 RDW 15.3 % (13.2-15.2) H 04/30/19 03:48 Plt Count 127 K/mm3 (140-440) L 04/30/19 03:48 Lymph % (Auto) 24.8 % (13.4-35.0) 04/30/19 03:48 [place] % (Auto) 8.4 % (0.0-7.3) H 04/30/19 03:48 Eos % (Auto) 4.1 % (0.0-4.3) 04/30/19 03:48 Baso % (Auto) 0.3 % (0.0-1.8) 04/30/19 03:48 Lymph # 1.0 K/mm3 (1.2-5.4) L 04/30/19 03:48 [place] # 0.4 K/mm3 (0.0-0.8) 04/30/19 03:48 Eos # 0.2 K/mm3 (0.0-0.4) 04/30/19 03:48 Baso # 0.0 K/mm3 (0.0-0.1) 04/30/19 03:48 Seg Neutrophils % 62.4 % (40.0-70.0) 04/30/19 03:48 Seg Neutrophils # 2.6 K/mm3 (1.8-7.7) 04/30/19 03:48 PT 13.3 Sec. (12.2-14.9) 04/28/19 07:35 INR 1.04 (0.87-1.13) 04/28/19 07:35 APTT 30.3 Sec. (24.2-36.6) 04/28/19 07:35 Sodium 139 mmol/L (137-145) 04/30/19 03:48 Potassium 4.5 mmol/L (3.6-5.0) 04/30/19 03:48 Chloride 104.7 mmol/L (98-107) 04/30/19 03:48 Carbon Dioxide 26 mmol/L (22-30) 04/30/19 03:48 13 mmol/L 04/30/19 03:48 BUN 18 mg/dL (9-20) 04/30/19 03:48 1.0 mg/dL (0.8-1.5) 04/30/19 03:48 Estimated GFR > 60 ml/min 04/30/19 03:48 18 % 04/30/19 03:48 Glucose 107 mg/dL (75-100) H 04/30/19 03:48 Calcium 8.2 mg/dL (8.4-10.2) L 04/30/19 03:48 Blood Type O POSITIVE 04/28/19 07:35 Antibody Screen Negative 04/28/19 07:35 Crossmatch See Detail 04/28/19 07:35 Active Medications - Current Medications Current Medications: Generic Name Dose Route Start Last Admin Trade Name Freq PRN Reason Stop Dose Admin Acetaminophen 650 mg 04/27/19 15:05 Tylenol PO Q4H PRN Pain MILD(1-3)/Fever >100.5/AGARWAL Acetaminophen/Hydrocodone Bitart 1 each 04/27/19 14:58 05/02/19 15:27 [place] 5/325 PO 1 each Q6HR PRN Administration Pain Albuterol 2.5 mg 04/30/19 10:25 Proventil IH Q4HRT PRN Shortness Of Breath Amlodipine Besylate 10 mg 04/28/19 10:00 05/02/19 09:12 Norvasc PO 10 mg DAILY ASCENCION Administration Arformoterol Tartrate 15 mcg 04/30/19 20:00 05/02/19 08:35 Brovana Nebu IH 15 mcg Q12HRT ASCENCION Administration Budesonide 0.5 mg 04/30/19 20:00 05/02/19 08:35 Pulmicort IH 0.5 mg Q12HRT ASCENCION Administration Cyclobenzaprine HCl 5 mg 04/27/19 16:47 05/02/19 13:03 Flexeril PO 5 mg Q8H PRN Administration Muscle Spasm Donepezil HCl 10 mg 04/28/19 10:00 05/02/19 09:21 Aricept PO 10 mg DAILY ASCENCION Administration Enoxaparin Sodium 40 mg 04/27/19 22:00 05/01/19 22:41 Lovenox SUB-Q 40 mg QDAY@2200 ASCENCION Administration Folic Acid 1 mg 04/28/19 10:00 05/02/19 09:12 Folvite PO 1 mg QDAY ASCENCION Administration Lactated Ringer's 1,000 mls @ 100 mls/hr 04/28/19 08:00 05/02/19 16:06 Lactated Ringers IV 100 mls/hr DIRECT ASCENCION Administration Morphine Sulfate 4 mg 04/27/19 13:04 05/01/19 22:40 Morphine IV 4 mg Q4H PRN Administration Pain , Severe (7-10) Morphine Sulfate 2 mg 04/28/19 09:05 04/30/19 20:21 Morphine IV 2 mg Q4H PRN Administration Pain, Moderate (4-6) Multivitamins 1 each 04/28/19 10:00 05/02/19 09:12 Theragran Tab PO 1 each QDAY ASCENCION Administration Nicotine 14 mg 04/27/19 18:45 05/02/19 09:11 Habitrol TD 14 mg QDAY ASCENCION Administration Ondansetron HCl 4 mg 04/27/19 15:05 04/28/19 23:29 Zofran IV 4 mg Q8H PRN Administration Nausea And Vomiting Oxycodone/Acetaminophen 1 tab 04/28/19 09:05 05/02/19 09:10 Percocet 5/325 PO 1 tab Q6H PRN Administration Pain, Moderate (4-6) Pantoprazole Sodium 40 mg 04/27/19 17:21 05/02/19 09:12 Protonix PO 40 mg QDAY ASCENCION Administration Polyethylene Glycol 17 gm 04/28/19 10:00 05/02/19 09:12 Miralax 3350 PO 17 gm QDAY ASCENCION Administration Sodium Chloride 10 ml 04/27/19 22:00 05/02/19 16:04 Sodium Chloride Flush Syringe 10 Ml IV 10 ml BID ASCENCION Administration Sodium Chloride 10 ml 04/27/19 15:05 Sodium Chloride Flush Syringe 10 Ml IV PRN PRN LINE FLUSH Thiamine HCl 100 mg 04/28/19 10:00 05/02/19 09:12 Vitamin B-1 PO 100 mg QDAY ASCENCION Administration Nutrition/Malnutrition Assess - Dietary Evaluation Nutrition/Malnutrition Findings: Nutrition Notes Start: 04/28/19 14:12 Freq: Status: Active Protocol: Document 04/30/19 14:24 LP (Rec: 04/30/19 14:27 LP [id number]) Nutrition Notes Initial or Follow up Reassessment Current Diagnosis Hypertension Other Pertinent Diagnosis GERD, Hx dementia, R hip fracture, S/P trochanteric nailing R femur Current Diet Regular with Ensure Enlive daily Labs/Tests Reviewed Pertinent Medications Reviewed Height 6 ft 3 in Weight 62.505 kg [place] Body Weight (kg) 89.09 BMI 17.2 Subjective/Other Information Pt states eating well. Observed 100% of breakfast and Ensure consumed. Percent of energy/protein needs met: 100%/100% Burn Absent Trauma Absent #1 Nutrition Diagnosis Malnutrition Diagnosis Progress(for reassessment Continues documentation) Is patient on ventilator? No Is Patient Ambulatory and/or Out of Bed No REE-([place]-confined to bed) 1806.204 Kcal/Kg value to use for calculation 37 Approximate Energy Requirements Using 2313 kcal/Kg Calculation Used for Recommendations Kcal/kg Additional Notes Protein Needs: 75-94g (1.2-1. 5g/kg) Fluid Needs: 1 ml/kcal Nutrition Intervention Change Diet Order: Continue current Add Supplement/Snack (indicate name/kcal Ensure Enlive Vanilla BID /protein ) Provides kCal: 700 Provides Protein (gm) 40 Goal #1 Meet at least 75% of calorie and protein needs via PO and ONS intakes Goal #2 Wt gain/maintenance Anticipated Discharge Needs: Regular diet with ONS daily to BID Follow-Up By: 05/06/19 Additional Comments Follow for stable intakes
[2019-05-02] MEDS: LOVENOX SUB-Q SCH (21:14)
[2019-05-03] MEDS: LACTATED RINGERS 1,000 ML IV SCH ×2 (04:51→21:45)
[2019-05-03] MEDS: BROVANA NEBU IH SCH ×2 (09:02→21:00)
[2019-05-03] MEDS: PULMICORT IH SCH ×2 (09:02→21:00)
[2019-05-03] MEDS: PROTONIX PO SCH (10:10)
[2019-05-03] MEDS: FOLVITE PO SCH (10:10)
[2019-05-03] MEDS: VITAMIN B-1 PO SCH (10:10)
[2019-05-03] MEDS: HABITROL TD SCH (10:12)
[2019-05-03] MEDS: THERAGRAN Tab PO SCH (10:13)
[2019-05-03] MEDS: SODIUM CHLORIDE FLUSH SYRINGE 10 ML IV SCH ×2 (10:15→21:04)
[2019-05-03] MEDS: ARICEPT PO SCH (10:15)
--- NOTE | 2019-05-03 12:06 | XRay Report ---
Pelvis AP 1029 INDICATION: Recent surgery, right groin pain COMPARISON: 04/27/2019 Interval internal fixation of the right femoral intertrochanteric fracture is noted. Moderate right h ip degenerative changes are seen. No additional fractures or dislocations are noted. Lower lumbar deg enerative changes are prominent. Signer Name: Ramin Dorantes MD Signed: 05/03/2019 12:01 PM Workstation Name: [id number]
[2019-05-03] MEDS: FLEXERIL PO PRN ×2 (13:05→21:00)
[2019-05-03] MEDS: MIRALAX 3350 PO SCH (13:06)
[2019-05-03] MEDS: NORVASC PO SCH (13:11)
--- NOTE | 2019-05-03 14:19 | Progress Note ---
Assessment and Plan Assessment and plan: 63-year-old man who presents with right hip fracture Diagnoses Right hip fracture History of dementia Homelessness Peptic ulcer disease Chronic pain in back and foot Ambulatory dysfunction, uses a walker at baseline Tobacco abuse, currently every day smoker Moderate malnutrition Plan sp closed reduction on 04/28, pain meds Case management consult as patient will likely need rehabilitation placement after surgery Patient has been counseled on tobacco cessation greater than 10 minutes, nicotine patches when necessary PPI for history of GERD and peptic ulcer disease Dietitian consult, encouraged on balanced diet DVT prophylaxis with Lovenox cont PT awaiting placement, patient is currently homeless, awaiting SNF History Interval history: Right hip pain is improved Review of systems Constitutional: No fevers, no malaise, no joint pains CVS: No chest pain, no orthopnea, no dyspnea on exertion, no pedal edema GI: No abdominal pain, no diarrhea, no vomiting, no constipation Respiratory: no wheezing, no coughing Hospitalist Physical - Physical exam Narrative exam: General.: Appears well, no distress, nontoxic, cachectic HEENT: Moist mucous membranes, extraocular muscles intact, no lymphadenopathy Neck: supple Cardiac: S1-S2 heard Lungs: clear to auscultation bilaterally Abdomen: soft , nontender, nondistended, bowel sounds positive Extremities: no edema clubbing or cyanosis Skin: no rash or lesions Neurologic: no gross focal deficits Psych: calm, and cooperative - Constitutional Vitals: Temp Pulse Resp BP Pulse Ox 98.1 F 70 20 126/85 96 05/03/19 11:00 05/03/19 11:00 05/03/19 11:00 05/03/19 11:00 05/03/19 11:00 General appearance: Present: no acute distress, well-nourished Results - Labs CBC & Chem 7: 04/30/19 03:48 04/30/19 03:48 Labs: Laboratory Last Values WBC 4.2 K/mm3 (4.5-11.0) L 04/30/19 03:48 RBC 2.51 M/mm3 (3.65-5.03) L 04/30/19 03:48 Hgb 7.8 gm/dl (11.8-15.2) L 04/30/19 03:48 Hct 22.5 % (35.5-45.6) L 04/30/19 03:48 MCV 90 fl (84-94) 04/30/19 03:48 MCH 31 pg (28-32) 04/30/19 03:48 MCHC 35 % (32-34) H 04/30/19 03:48 RDW 15.3 % (13.2-15.2) H 04/30/19 03:48 Plt Count 127 K/mm3 (140-440) L 04/30/19 03:48 Lymph % (Auto) 24.8 % (13.4-35.0) 04/30/19 03:48 [place] % (Auto) 8.4 % (0.0-7.3) H 04/30/19 03:48 Eos % (Auto) 4.1 % (0.0-4.3) 04/30/19 03:48 Baso % (Auto) 0.3 % (0.0-1.8) 04/30/19 03:48 Lymph # 1.0 K/mm3 (1.2-5.4) L 04/30/19 03:48 [place] # 0.4 K/mm3 (0.0-0.8) 04/30/19 03:48 Eos # 0.2 K/mm3 (0.0-0.4) 04/30/19 03:48 Baso # 0.0 K/mm3 (0.0-0.1) 04/30/19 03:48 Seg Neutrophils % 62.4 % (40.0-70.0) 04/30/19 03:48 Seg Neutrophils # 2.6 K/mm3 (1.8-7.7) 04/30/19 03:48 PT 13.3 Sec. (12.2-14.9) 04/28/19 07:35 INR 1.04 (0.87-1.13) 04/28/19 07:35 APTT 30.3 Sec. (24.2-36.6) 04/28/19 07:35 Sodium 139 mmol/L (137-145) 04/30/19 03:48 Potassium 4.5 mmol/L (3.6-5.0) 04/30/19 03:48 Chloride 104.7 mmol/L (98-107) 04/30/19 03:48 Carbon Dioxide 26 mmol/L (22-30) 04/30/19 03:48 13 mmol/L 04/30/19 03:48 BUN 18 mg/dL (9-20) 04/30/19 03:48 1.0 mg/dL (0.8-1.5) 04/30/19 03:48 Estimated GFR > 60 ml/min 04/30/19 03:48 18 % 04/30/19 03:48 Glucose 107 mg/dL (75-100) H 04/30/19 03:48 Calcium 8.2 mg/dL (8.4-10.2) L 04/30/19 03:48 Blood Type O POSITIVE 04/28/19 07:35 Antibody Screen Negative 04/28/19 07:35 Crossmatch See Detail 04/28/19 07:35 Active Medications - Current Medications Current Medications: Generic Name Dose Route Start Last Admin Trade Name Freq PRN Reason Stop Dose Admin Acetaminophen 650 mg 04/27/19 15:05 Tylenol PO Q4H PRN Pain MILD(1-3)/Fever >100.5/AGARWAL Acetaminophen/Hydrocodone Bitart 1 each 04/27/19 14:58 05/02/19 15:27 [place] 5/325 PO 1 each Q6HR PRN Administration Pain Albuterol 2.5 mg 04/30/19 10:25 Proventil IH Q4HRT PRN Shortness Of Breath Amlodipine Besylate 10 mg 04/28/19 10:00 05/03/19 13:11 Norvasc PO 10 mg DAILY ASCENCION Administration Arformoterol Tartrate 15 mcg 04/30/19 20:00 05/03/19 09:02 Brovana Nebu IH 15 mcg Q12HRT ASCENCION Administration Budesonide 0.5 mg 04/30/19 20:00 05/03/19 09:02 Pulmicort IH 0.5 mg Q12HRT ASCENCION Administration Cyclobenzaprine HCl 5 mg 04/27/19 16:47 05/03/19 13:05 Flexeril PO 5 mg Q8H PRN Administration Muscle Spasm Donepezil HCl 10 mg 04/28/19 10:00 05/02/19 09:21 Aricept PO 10 mg DAILY ASCENCION Administration Enoxaparin Sodium 40 mg 04/27/19 22:00 05/02/19 21:14 Lovenox SUB-Q 40 mg QDAY@2200 ASCENCION Administration Folic Acid 1 mg 04/28/19 10:00 05/03/19 10:10 Folvite PO 1 mg QDAY ASCENCION Administration Lactated Ringer's 1,000 mls @ 100 mls/hr 04/28/19 08:00 05/03/19 04:51 Lactated Ringers IV 100 mls/hr DIRECT ASCENCION Administration Morphine Sulfate 4 mg 04/27/19 13:04 05/01/19 22:40 Morphine IV 4 mg Q4H PRN Administration Pain , Severe (7-10) Morphine Sulfate 2 mg 04/28/19 09:05 04/30/19 20:21 Morphine IV 2 mg Q4H PRN Administration Pain, Moderate (4-6) Multivitamins 1 each 04/28/19 10:00 05/03/19 10:13 Theragran Tab PO 1 each QDAY ASCENCION Administration Nicotine 14 mg 04/27/19 18:45 05/03/19 10:12 Habitrol TD 14 mg QDAY ASCENCION Administration Ondansetron HCl 4 mg 04/27/19 15:05 04/28/19 23:29 Zofran IV 4 mg Q8H PRN Administration Nausea And Vomiting Oxycodone/Acetaminophen 1 tab 04/28/19 09:05 05/02/19 23:40 Percocet 5/325 PO 1 tab Q6H PRN Administration Pain, Moderate (4-6) Pantoprazole Sodium 40 mg 04/27/19 17:21 05/03/19 10:10 Protonix PO 40 mg QDAY ASCENCION Administration Polyethylene Glycol 17 gm 04/28/19 10:00 05/03/19 13:06 Miralax 3350 PO 17 gm QDAY ASCENCION Administration Sodium Chloride 10 ml 04/27/19 22:00 05/02/19 21:28 Sodium Chloride Flush Syringe 10 Ml IV 10 ml BID ASCENCION Administration Sodium Chloride 10 ml 04/27/19 15:05 Sodium Chloride Flush Syringe 10 Ml IV PRN PRN LINE FLUSH Thiamine HCl 100 mg 04/28/19 10:00 05/03/19 10:10 Vitamin B-1 PO 100 mg QDAY ASCENCION Administration Nutrition/Malnutrition Assess - Dietary Evaluation Nutrition/Malnutrition Findings: Nutrition Notes Start: 04/28/19 14:12 Freq: Status: Active Protocol: Document 04/30/19 14:24 LP (Rec: 04/30/19 14:27 LP [id number]) Nutrition Notes Initial or Follow up Reassessment Current Diagnosis Hypertension Other Pertinent Diagnosis GERD, Hx dementia, R hip fracture, S/P trochanteric nailing R femur Current Diet Regular with Ensure Enlive daily Labs/Tests Reviewed Pertinent Medications Reviewed Height 6 ft 3 in Weight 62.505 kg [place] Body Weight (kg) 89.09 BMI 17.2 Subjective/Other Information Pt states eating well. Observed 100% of breakfast and Ensure consumed. Percent of energy/protein needs met: 100%/100% Burn Absent Trauma Absent #1 Nutrition Diagnosis Malnutrition Diagnosis Progress(for reassessment Continues documentation) Is patient on ventilator? No Is Patient Ambulatory and/or Out of Bed No REE-([place]-confined to bed) 1806.204 Kcal/Kg value to use for calculation 37 Approximate Energy Requirements Using 2313 kcal/Kg Calculation Used for Recommendations Kcal/kg Additional Notes Protein Needs: 75-94g (1.2-1. 5g/kg) Fluid Needs: 1 ml/kcal Nutrition Intervention Change Diet Order: Continue current Add Supplement/Snack (indicate name/kcal Ensure Enlive Vanilla BID /protein ) Provides kCal: 700 Provides Protein (gm) 40 Goal #1 Meet at least 75% of calorie and protein needs via PO and ONS intakes Goal #2 Wt gain/maintenance Anticipated Discharge Needs: Regular diet with ONS daily to BID Follow-Up By: 05/06/19 Additional Comments Follow for stable intakes
[2019-05-03] MEDS: NORCO 5/325 PO PRN (17:42)
[2019-05-03] MEDS: LOVENOX SUB-Q SCH (21:00)
[2019-05-03] MEDS: PERCOCET 5/325 PO PRN (21:00)
[2019-05-04] MEDS: MORPHINE IV PRN ×2 (05:26→20:21)
[2019-05-04] MEDS: MIRALAX 3350 PO SCH (10:38)
[2019-05-04] MEDS: PROTONIX PO SCH (10:52)
[2019-05-04] MEDS: ARICEPT PO SCH (10:52)
[2019-05-04] MEDS: FOLVITE PO SCH (10:52)
[2019-05-04] MEDS: THERAGRAN Tab PO SCH (10:52)
[2019-05-04] MEDS: NORVASC PO SCH (10:53)
[2019-05-04] MEDS: VITAMIN B-1 PO SCH (10:53)
--- NOTE | 2019-05-04 11:30 | Progress Note ---
Assessment and Plan Assessment and plan: 63-year-old man who presents with right hip fracture Diagnoses Right hip fracture History of dementia Homelessness Peptic ulcer disease Chronic pain in back and foot Ambulatory dysfunction, uses a walker at baseline Tobacco abuse, currently every day smoker Moderate malnutrition Plan sp closed reduction on 04/28, pain meds Case management consult as patient will likely need rehabilitation placement after surgery Patient has been counseled on tobacco cessation greater than 10 minutes, nicotine patches when necessary PPI for history of GERD and peptic ulcer disease Dietitian consult, encouraged on balanced diet DVT prophylaxis with Lovenox cont PT awaiting placement, patient is currently homeless, awaiting SNF History Interval history: Right hip pain is improved Review of systems Constitutional: No fevers, no malaise, no joint pains CVS: No chest pain, no orthopnea, no dyspnea on exertion, no pedal edema GI: No abdominal pain, no diarrhea, no vomiting, no constipation Respiratory: no wheezing, no coughing Hospitalist Physical - Physical exam Narrative exam: General.: Appears well, no distress, nontoxic, cachectic HEENT: Moist mucous membranes, extraocular muscles intact, no lymphadenopathy Neck: supple Cardiac: S1-S2 heard Lungs: clear to auscultation bilaterally Abdomen: soft , nontender, nondistended, bowel sounds positive Extremities: no edema clubbing or cyanosis Skin: no rash or lesions Neurologic: no gross focal deficits Psych: calm, and cooperative - Constitutional Vitals: Temp Pulse Resp BP Pulse Ox 98.7 F 103 H 18 129/94 95 05/04/19 07:49 05/04/19 07:49 05/04/19 07:49 05/04/19 07:49 05/04/19 07:49 General appearance: Present: no acute distress, well-nourished Results - Labs CBC & Chem 7: 04/30/19 03:48 04/30/19 03:48 Labs: Laboratory Last Values WBC 4.2 K/mm3 (4.5-11.0) L 04/30/19 03:48 RBC 2.51 M/mm3 (3.65-5.03) L 04/30/19 03:48 Hgb 7.8 gm/dl (11.8-15.2) L 04/30/19 03:48 Hct 22.5 % (35.5-45.6) L 04/30/19 03:48 MCV 90 fl (84-94) 04/30/19 03:48 MCH 31 pg (28-32) 04/30/19 03:48 MCHC 35 % (32-34) H 04/30/19 03:48 RDW 15.3 % (13.2-15.2) H 04/30/19 03:48 Plt Count 127 K/mm3 (140-440) L 04/30/19 03:48 Lymph % (Auto) 24.8 % (13.4-35.0) 04/30/19 03:48 [place] % (Auto) 8.4 % (0.0-7.3) H 04/30/19 03:48 Eos % (Auto) 4.1 % (0.0-4.3) 04/30/19 03:48 Baso % (Auto) 0.3 % (0.0-1.8) 04/30/19 03:48 Lymph # 1.0 K/mm3 (1.2-5.4) L 04/30/19 03:48 [place] # 0.4 K/mm3 (0.0-0.8) 04/30/19 03:48 Eos # 0.2 K/mm3 (0.0-0.4) 04/30/19 03:48 Baso # 0.0 K/mm3 (0.0-0.1) 04/30/19 03:48 Seg Neutrophils % 62.4 % (40.0-70.0) 04/30/19 03:48 Seg Neutrophils # 2.6 K/mm3 (1.8-7.7) 04/30/19 03:48 PT 13.3 Sec. (12.2-14.9) 04/28/19 07:35 INR 1.04 (0.87-1.13) 04/28/19 07:35 APTT 30.3 Sec. (24.2-36.6) 04/28/19 07:35 Sodium 139 mmol/L (137-145) 04/30/19 03:48 Potassium 4.5 mmol/L (3.6-5.0) 04/30/19 03:48 Chloride 104.7 mmol/L (98-107) 04/30/19 03:48 Carbon Dioxide 26 mmol/L (22-30) 04/30/19 03:48 13 mmol/L 04/30/19 03:48 BUN 18 mg/dL (9-20) 04/30/19 03:48 1.0 mg/dL (0.8-1.5) 04/30/19 03:48 Estimated GFR > 60 ml/min 04/30/19 03:48 18 % 04/30/19 03:48 Glucose 107 mg/dL (75-100) H 04/30/19 03:48 Calcium 8.2 mg/dL (8.4-10.2) L 04/30/19 03:48 Blood Type O POSITIVE 04/28/19 07:35 Antibody Screen Negative 04/28/19 07:35 Crossmatch See Detail 04/28/19 07:35 Active Medications - Current Medications Current Medications: Generic Name Dose Route Start Last Admin Trade Name Freq PRN Reason Stop Dose Admin Acetaminophen 650 mg 04/27/19 15:05 Tylenol PO Q4H PRN Pain MILD(1-3)/Fever >100.5/AGARWAL Acetaminophen/Hydrocodone Bitart 1 each 04/27/19 14:58 05/03/19 17:42 [place] 5/325 PO 1 each Q6HR PRN Administration Pain Albuterol 2.5 mg 04/30/19 10:25 Proventil IH Q4HRT PRN Shortness Of Breath Amlodipine Besylate 10 mg 04/28/19 10:00 05/03/19 13:11 Norvasc PO 10 mg DAILY ASCENCION Administration Arformoterol Tartrate 15 mcg 04/30/19 20:00 05/03/19 21:00 Brovana Nebu IH Not Given Q12HRT ASCENCION Budesonide 0.5 mg 04/30/19 20:00 05/03/19 21:00 Pulmicort IH Not Given Q12HRT ASCENCION Cyclobenzaprine HCl 5 mg 04/27/19 16:47 05/03/19 21:00 Flexeril PO 5 mg Q8H PRN Administration Muscle Spasm Donepezil HCl 10 mg 04/28/19 10:00 05/03/19 10:15 Aricept PO 10 mg DAILY ASCENCION Administration Enoxaparin Sodium 40 mg 04/27/19 22:00 05/03/19 21:00 Lovenox SUB-Q 40 mg QDAY@2200 ASCENCION Administration Folic Acid 1 mg 04/28/19 10:00 05/03/19 10:10 Folvite PO 1 mg QDAY ASCENCION Administration Lactated Ringer's 1,000 mls @ 100 mls/hr 04/28/19 08:00 05/03/19 21:45 Lactated Ringers IV 100 mls/hr DIRECT ASCENCION Administration Morphine Sulfate 4 mg 04/27/19 13:04 05/01/19 22:40 Morphine IV 4 mg Q4H PRN Administration Pain , Severe (7-10) Morphine Sulfate 2 mg 04/28/19 09:05 05/04/19 05:26 Morphine IV 2 mg Q4H PRN Administration Pain, Moderate (4-6) Multivitamins 1 each 04/28/19 10:00 05/03/19 10:13 Theragran Tab PO 1 each QDAY ASCENCION Administration Nicotine 14 mg 04/27/19 18:45 05/03/19 10:12 Habitrol TD 14 mg QDAY ASCENCION Administration Ondansetron HCl 4 mg 04/27/19 15:05 04/28/19 23:29 Zofran IV 4 mg Q8H PRN Administration Nausea And Vomiting Oxycodone/Acetaminophen 1 tab 04/28/19 09:05 05/03/19 21:00 Percocet 5/325 PO 1 tab Q6H PRN Administration Pain, Moderate (4-6) Pantoprazole Sodium 40 mg 04/27/19 17:21 05/03/19 10:10 Protonix PO 40 mg QDAY ASCENCION Administration Polyethylene Glycol 17 gm 04/28/19 10:00 05/03/19 13:06 Miralax 3350 PO 17 gm QDAY ASCENCION Administration Sodium Chloride 10 ml 04/27/19 22:00 05/03/19 21:04 Sodium Chloride Flush Syringe 10 Ml IV 10 ml BID ASCENCION Administration Sodium Chloride 10 ml 04/27/19 15:05 Sodium Chloride Flush Syringe 10 Ml IV PRN PRN LINE FLUSH Thiamine HCl 100 mg 04/28/19 10:00 05/03/19 10:10 Vitamin B-1 PO 100 mg QDAY ASCENCION Administration Nutrition/Malnutrition Assess - Dietary Evaluation Nutrition/Malnutrition Findings: Nutrition Notes Start: 04/28/19 14:12 Freq: Status: Active Protocol: Document 04/30/19 14:24 LP (Rec: 04/30/19 14:27 LP [id number]) Nutrition Notes Initial or Follow up Reassessment Current Diagnosis Hypertension Other Pertinent Diagnosis GERD, Hx dementia, R hip fracture, S/P trochanteric nailing R femur Current Diet Regular with Ensure Enlive daily Labs/Tests Reviewed Pertinent Medications Reviewed Height 6 ft 3 in Weight 62.505 kg [place] Body Weight (kg) 89.09 BMI 17.2 Subjective/Other Information Pt states eating well. Observed 100% of breakfast and Ensure consumed. Percent of energy/protein needs met: 100%/100% Burn Absent Trauma Absent #1 Nutrition Diagnosis Malnutrition Diagnosis Progress(for reassessment Continues documentation) Is patient on ventilator? No Is Patient Ambulatory and/or Out of Bed No REE-([facility]-confined to bed) 1806.204 Kcal/Kg value to use for calculation 37 Approximate Energy Requirements Using 2313 kcal/Kg Calculation Used for Recommendations Kcal/kg Additional Notes Protein Needs: 75-94g (1.2-1. 5g/kg) Fluid Needs: 1 ml/kcal Nutrition Intervention Change Diet Order: Continue current Add Supplement/Snack (indicate name/kcal Ensure Enlive Vanilla BID /protein ) Provides kCal: 700 Provides Protein (gm) 40 Goal #1 Meet at least 75% of calorie and protein needs via PO and ONS intakes Goal #2 Wt gain/maintenance Anticipated Discharge Needs: Regular diet with ONS daily to BID Follow-Up By: 05/06/19 Additional Comments Follow for stable intakes
[2019-05-04] MEDS: PERCOCET 5/325 PO PRN (11:50)
[2019-05-04] MEDS: FLEXERIL PO PRN (11:53)
[2019-05-04] MEDS: SODIUM CHLORIDE FLUSH SYRINGE 10 ML IV SCH ×2 (11:54→21:27)
[2019-05-04] MEDS: HABITROL TD SCH (11:54)
[2019-05-04] MEDS: PULMICORT IH SCH ×2 (17:40→21:05)
[2019-05-04] MEDS: BROVANA NEBU IH SCH ×2 (17:41→21:05)
[2019-05-04] MEDS: LOVENOX SUB-Q SCH (21:27)
[2019-05-05] MEDS: FLEXERIL PO PRN (07:13)
[2019-05-05] MEDS: MORPHINE IV PRN ×3 (07:13→23:05)
[2019-05-05] MEDS: PROTONIX PO SCH (09:10)
[2019-05-05] MEDS: HABITROL TD SCH (09:10)
[2019-05-05] MEDS: THERAGRAN Tab PO SCH (09:10)
[2019-05-05] MEDS: VITAMIN B-1 PO SCH (09:10)
[2019-05-05] MEDS: NORVASC PO SCH (09:10)
[2019-05-05] MEDS: ARICEPT PO SCH (09:10)
[2019-05-05] MEDS: MIRALAX 3350 PO SCH (09:10)
[2019-05-05] MEDS: FOLVITE PO SCH (09:10)
[2019-05-05] MEDS: SODIUM CHLORIDE FLUSH SYRINGE 10 ML IV SCH ×2 (09:11→21:04)
[2019-05-05] MEDS: BROVANA NEBU IH SCH ×2 (13:50→20:46)
[2019-05-05] MEDS: PULMICORT IH SCH ×2 (13:50→20:46)
--- NOTE | 2019-05-05 14:08 | Progress Note ---
Assessment and Plan Assessment and plan: 63-year-old man who presents with right hip fracture Diagnoses Right hip fracture History of dementia Homelessness Peptic ulcer disease Chronic pain in back and foot Ambulatory dysfunction, uses a walker at baseline Tobacco abuse, currently every day smoker Moderate malnutrition Plan sp closed reduction on 04/28, pain meds Case management consult as patient will likely need rehabilitation placement after surgery Patient has been counseled on tobacco cessation greater than 10 minutes, nicotine patches when necessary PPI for history of GERD and peptic ulcer disease Dietitian consult, encouraged on balanced diet DVT prophylaxis with Lovenox cont PT awaiting placement, patient is currently homeless, awaiting SNF. Patient doesn't want to give information about his bank information or the source of income, which made it difficult to place him in a SNF. History Interval history: Patient was seen and evaluated this morning. Patient is complaining of pain and asking for pain medicine. Hospitalist Physical - Physical exam Narrative exam: Not in cardiopulmonary distress. The patient is emaciated. Vital signs as documented. Head exam is unremarkable. No scleral icterus . Neck is without jugular venous distension, thyromegaly, or carotid bruits. Lungs are clear to auscultation. Cardiac exam reveals regular rate and Rhythm. Abdominal exam reveals normal bowel sounds. Extremities are nonedematous and both femoral and pedal pulses are normal. 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 No focal weakness. - Constitutional Vitals: Temp Pulse Resp BP Pulse Ox 98.2 F 106 H 18 120/81 95 05/05/19 11:58 05/05/19 11:58 05/05/19 11:58 05/05/19 11:58 05/05/19 11:58 General appearance: Present: no acute distress, well-nourished Results - Labs CBC & Chem 7: 04/30/19 03:48 04/30/19 03:48 Labs: Laboratory Last Values WBC 4.2 K/mm3 (4.5-11.0) L 04/30/19 03:48 RBC 2.51 M/mm3 (3.65-5.03) L 04/30/19 03:48 Hgb 7.8 gm/dl (11.8-15.2) L 04/30/19 03:48 Hct 22.5 % (35.5-45.6) L 04/30/19 03:48 MCV 90 fl (84-94) 04/30/19 03:48 MCH 31 pg (28-32) 04/30/19 03:48 MCHC 35 % (32-34) H 04/30/19 03:48 RDW 15.3 % (13.2-15.2) H 04/30/19 03:48 Plt Count 127 K/mm3 (140-440) L 04/30/19 03:48 Lymph % (Auto) 24.8 % (13.4-35.0) 04/30/19 03:48 [place] % (Auto) 8.4 % (0.0-7.3) H 04/30/19 03:48 Eos % (Auto) 4.1 % (0.0-4.3) 04/30/19 03:48 Baso % (Auto) 0.3 % (0.0-1.8) 04/30/19 03:48 Lymph # 1.0 K/mm3 (1.2-5.4) L 04/30/19 03:48 [place] # 0.4 K/mm3 (0.0-0.8) 04/30/19 03:48 Eos # 0.2 K/mm3 (0.0-0.4) 04/30/19 03:48 Baso # 0.0 K/mm3 (0.0-0.1) 04/30/19 03:48 Seg Neutrophils % 62.4 % (40.0-70.0) 04/30/19 03:48 Seg Neutrophils # 2.6 K/mm3 (1.8-7.7) 04/30/19 03:48 PT 13.3 Sec. (12.2-14.9) 04/28/19 07:35 INR 1.04 (0.87-1.13) 04/28/19 07:35 APTT 30.3 Sec. (24.2-36.6) 04/28/19 07:35 Sodium 139 mmol/L (137-145) 04/30/19 03:48 Potassium 4.5 mmol/L (3.6-5.0) 04/30/19 03:48 Chloride 104.7 mmol/L (98-107) 04/30/19 03:48 Carbon Dioxide 26 mmol/L (22-30) 04/30/19 03:48 13 mmol/L 04/30/19 03:48 BUN 18 mg/dL (9-20) 04/30/19 03:48 1.0 mg/dL (0.8-1.5) 04/30/19 03:48 Estimated GFR > 60 ml/min 04/30/19 03:48 18 % 04/30/19 03:48 Glucose 107 mg/dL (75-100) H 04/30/19 03:48 Calcium 8.2 mg/dL (8.4-10.2) L 04/30/19 03:48 Blood Type O POSITIVE 04/28/19 07:35 Antibody Screen Negative 04/28/19 07:35 Crossmatch See Detail 04/28/19 07:35 Active Medications - Current Medications Current Medications: Generic Name Dose Route Start Last Admin Trade Name Freq PRN Reason Stop Dose Admin Acetaminophen 650 mg 04/27/19 15:05 Tylenol PO Q4H PRN Pain MILD(1-3)/Fever >100.5/AGARWAL Acetaminophen/Hydrocodone Bitart 1 each 04/27/19 14:58 05/03/19 17:42 [place] 5/325 PO 1 each Q6HR PRN Administration Pain Albuterol 2.5 mg 04/30/19 10:25 Proventil IH Q4HRT PRN Shortness Of Breath Amlodipine Besylate 10 mg 04/28/19 10:00 05/05/19 09:10 Norvasc PO 10 mg DAILY ASCENCION Administration Arformoterol Tartrate 15 mcg 04/30/19 20:00 05/05/19 13:50 Brovana Nebu IH 15 mcg Q12HRT ASCENCION Administration Budesonide 0.5 mg 04/30/19 20:00 05/05/19 13:50 Pulmicort IH 0.5 mg Q12HRT ASCENCION Administration Cyclobenzaprine HCl 5 mg 04/27/19 16:47 05/05/19 07:13 Flexeril PO 5 mg Q8H PRN Administration Muscle Spasm Donepezil HCl 10 mg 04/28/19 10:00 05/05/19 09:10 Aricept PO 10 mg DAILY ASCENCION Administration Enoxaparin Sodium 40 mg 04/27/19 22:00 05/04/19 21:27 Lovenox SUB-Q 40 mg QDAY@2200 ASCENCION Administration Folic Acid 1 mg 04/28/19 10:00 05/05/19 09:10 Folvite PO 1 mg QDAY ASCENCION Administration Lactated Ringer's 1,000 mls @ 100 mls/hr 04/28/19 08:00 05/03/19 21:45 Lactated Ringers IV 100 mls/hr DIRECT ASCENCION Administration Morphine Sulfate 4 mg 04/27/19 13:04 05/01/19 22:40 Morphine IV 4 mg Q4H PRN Administration Pain , Severe (7-10) Morphine Sulfate 2 mg 04/28/19 09:05 05/05/19 07:13 Morphine IV 2 mg Q4H PRN Administration Pain, Moderate (4-6) Multivitamins 1 each 04/28/19 10:00 05/05/19 09:10 Theragran Tab PO 1 each QDAY ASCENCION Administration Nicotine 14 mg 04/27/19 18:45 05/05/19 09:10 Habitrol TD 14 mg QDAY ASCENCION Administration Ondansetron HCl 4 mg 04/27/19 15:05 04/28/19 23:29 Zofran IV 4 mg Q8H PRN Administration Nausea And Vomiting Oxycodone/Acetaminophen 1 tab 04/28/19 09:05 05/04/19 11:50 Percocet 5/325 PO 1 tab Q6H PRN Administration Pain, Moderate (4-6) Pantoprazole Sodium 40 mg 04/27/19 17:21 05/05/19 09:10 Protonix PO 40 mg QDAY ASCENCION Administration Polyethylene Glycol 17 gm 04/28/19 10:00 05/05/19 09:10 Miralax 3350 PO 17 gm QDAY ASCENCION Administration Sodium Chloride 10 ml 04/27/19 22:00 05/05/19 09:11 Sodium Chloride Flush Syringe 10 Ml IV 10 ml BID ASCENCION Administration Sodium Chloride 10 ml 04/27/19 15:05 Sodium Chloride Flush Syringe 10 Ml IV PRN PRN LINE FLUSH Thiamine HCl 100 mg 04/28/19 10:00 05/05/19 09:10 Vitamin B-1 PO 100 mg QDAY ASCENCION Administration Nutrition/Malnutrition Assess - Dietary Evaluation Nutrition/Malnutrition Findings: Nutrition Notes Start: 04/28/19 14:12 Freq: Status: Active Protocol: Document 05/04/19 14:35 OH (Rec: 05/04/19 14:41 OH [id number]) Nutrition Notes Need for Assessment generated from: MD Order Initial or Follow up Assessment Other Pertinent Diagnosis GERD, Hx dementia, R hip fracture, S/P trochanteric nailing R femur Current Diet Regular with Ensure Enlive daily Labs/Tests Reviewed Pertinent Medications Reviewed Height 6 ft 3 in Weight 62.505 kg [place] Body Weight (kg) 89.09 BMI 17.2 Weight Status Underweight Subjective/Other Information F/U: Pt. reports he has been eating well and enjoys ONS. Pt . without teeth but states no difficulty chewing/swallowing. Percent of energy/protein needs met: 100/100% Burn Absent Trauma Absent GI Symptoms None Current % PO Good (75-100%) #1 Nutrition Diagnosis Malnutrition Etiology dementia Diagnosis Progress(for reassessment Continues documentation) Is patient on ventilator? No Is Patient Ambulatory and/or Out of Bed No REE-([facility]-confined to bed) 1806.204 Kcal/Kg value to use for calculation 37 Approximate Energy Requirements Using 2313 kcal/Kg Calculation Used for Recommendations Kcal/kg Additional Notes Protein Needs: 75-94g (1.2-1. 5g/kg) Fluid Needs: 1 ml/kcal Nutrition Intervention Change Diet Order: CONT REGULAR Add Supplement/Snack (indicate name/kcal Ensure Enlive Vanilla BID /protein ) Provides kCal: 700 Provides Protein (gm) 40 Goal #1 Meet at least 75% of calorie and protein needs via PO and ONS intakes Goal #2 Wt gain/maintenance Anticipated Discharge Needs: Regular diet with ONS daily to BID Follow-Up By: 05/07/19 Additional Comments f/u: po intake
[2019-05-05] MEDS: LOVENOX SUB-Q SCH (21:04)
[2019-05-06] MEDS: FLEXERIL PO PRN (01:18)
[2019-05-06] MEDS: PERCOCET 5/325 PO PRN (01:18)
[2019-05-06] MEDS: PULMICORT IH SCH ×2 (07:26→21:17)
[2019-05-06] MEDS: BROVANA NEBU IH SCH ×2 (07:27→21:17)
[2019-05-06] MEDS: MORPHINE IV PRN ×3 (07:57→22:58)
[2019-05-06] MEDS: FOLVITE PO SCH (09:10)
[2019-05-06] MEDS: THERAGRAN Tab PO SCH (09:10)
[2019-05-06] MEDS: VITAMIN B-1 PO SCH (09:10)
[2019-05-06] MEDS: PROTONIX PO SCH (09:10)
[2019-05-06] MEDS: HABITROL TD SCH (09:10)
[2019-05-06] MEDS: ARICEPT PO SCH (09:10)
[2019-05-06] MEDS: SODIUM CHLORIDE FLUSH SYRINGE 10 ML IV SCH ×2 (09:11→22:59)
[2019-05-06] MEDS: MIRALAX 3350 PO SCH (09:11)
[2019-05-06] MEDS: NORVASC PO SCH (09:11)
--- NOTE | 2019-05-06 14:02 | Progress Note ---
Assessment and Plan Assessment and plan: 63-year-old man who presents with right hip fracture Diagnoses Right hip fracture History of dementia Homelessness Peptic ulcer disease Chronic pain in back and foot Ambulatory dysfunction, uses a walker at baseline Tobacco abuse, currently every day smoker Moderate malnutrition Plan sp closed reduction on 04/28, pain meds Case management consult as patient will likely need rehabilitation placement after surgery Patient has been counseled on tobacco cessation greater than 10 minutes, nicotine patches when necessary PPI for history of GERD and peptic ulcer disease Dietitian consult, encouraged on balanced diet DVT prophylaxis with Lovenox cont PT awaiting placement, patient is currently homeless, awaiting SNF. Patient doesn't want to give information about his bank information or the source of income, which made it difficult to place him in a SNF. History Interval history: Patient was seen and evaluated this morning. Patient is complaining of pain and asking for pain medicine. Hospitalist Physical - Physical exam Narrative exam: Not in cardiopulmonary distress. The patient is emaciated. Vital signs as documented. Head exam is unremarkable. No scleral icterus . Neck is without jugular venous distension, thyromegaly, or carotid bruits. Lungs are clear to auscultation. Cardiac exam reveals regular rate and Rhythm. Abdominal exam reveals normal bowel sounds. Extremities are nonedematous and both femoral and pedal pulses are normal. 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 No focal weakness. - Constitutional Vitals: Temp Pulse Resp BP Pulse Ox 97.5 F L 106 H 20 115/71 95 05/06/19 11:12 05/06/19 11:16 05/06/19 11:12 05/06/19 11:12 05/06/19 11:16 General appearance: Present: no acute distress, well-nourished Results - Labs CBC & Chem 7: 04/30/19 03:48 04/30/19 03:48 Labs: Laboratory Last Values WBC 4.2 K/mm3 (4.5-11.0) L 04/30/19 03:48 RBC 2.51 M/mm3 (3.65-5.03) L 04/30/19 03:48 Hgb 7.8 gm/dl (11.8-15.2) L 04/30/19 03:48 Hct 22.5 % (35.5-45.6) L 04/30/19 03:48 MCV 90 fl (84-94) 04/30/19 03:48 MCH 31 pg (28-32) 04/30/19 03:48 MCHC 35 % (32-34) H 04/30/19 03:48 RDW 15.3 % (13.2-15.2) H 04/30/19 03:48 Plt Count 127 K/mm3 (140-440) L 04/30/19 03:48 Lymph % (Auto) 24.8 % (13.4-35.0) 04/30/19 03:48 [place] % (Auto) 8.4 % (0.0-7.3) H 04/30/19 03:48 Eos % (Auto) 4.1 % (0.0-4.3) 04/30/19 03:48 Baso % (Auto) 0.3 % (0.0-1.8) 04/30/19 03:48 Lymph # 1.0 K/mm3 (1.2-5.4) L 04/30/19 03:48 [place] # 0.4 K/mm3 (0.0-0.8) 04/30/19 03:48 Eos # 0.2 K/mm3 (0.0-0.4) 04/30/19 03:48 Baso # 0.0 K/mm3 (0.0-0.1) 04/30/19 03:48 Seg Neutrophils % 62.4 % (40.0-70.0) 04/30/19 03:48 Seg Neutrophils # 2.6 K/mm3 (1.8-7.7) 04/30/19 03:48 PT 13.3 Sec. (12.2-14.9) 04/28/19 07:35 INR 1.04 (0.87-1.13) 04/28/19 07:35 APTT 30.3 Sec. (24.2-36.6) 04/28/19 07:35 Sodium 139 mmol/L (137-145) 04/30/19 03:48 Potassium 4.5 mmol/L (3.6-5.0) 04/30/19 03:48 Chloride 104.7 mmol/L (98-107) 04/30/19 03:48 Carbon Dioxide 26 mmol/L (22-30) 04/30/19 03:48 13 mmol/L 04/30/19 03:48 BUN 18 mg/dL (9-20) 04/30/19 03:48 1.0 mg/dL (0.8-1.5) 04/30/19 03:48 Estimated GFR > 60 ml/min 04/30/19 03:48 18 % 04/30/19 03:48 Glucose 107 mg/dL (75-100) H 04/30/19 03:48 Calcium 8.2 mg/dL (8.4-10.2) L 04/30/19 03:48 Blood Type O POSITIVE 04/28/19 07:35 Antibody Screen Negative 04/28/19 07:35 Crossmatch See Detail 04/28/19 07:35 Active Medications - Current Medications Current Medications: Generic Name Dose Route Start Last Admin Trade Name Freq PRN Reason Stop Dose Admin Acetaminophen 650 mg 04/27/19 15:05 Tylenol PO Q4H PRN Pain MILD(1-3)/Fever >100.5/AGARWAL Acetaminophen/Hydrocodone Bitart 1 each 04/27/19 14:58 05/03/19 17:42 [place] 5/325 PO 1 each Q6HR PRN Administration Pain Albuterol 2.5 mg 04/30/19 10:25 Proventil IH Q4HRT PRN Shortness Of Breath Amlodipine Besylate 10 mg 04/28/19 10:00 05/06/19 09:11 Norvasc PO 10 mg DAILY ASCENCION Administration Arformoterol Tartrate 15 mcg 04/30/19 20:00 05/06/19 07:27 Brovana Nebu IH 15 mcg Q12HRT ASCENCION Administration Budesonide 0.5 mg 04/30/19 20:00 05/06/19 07:26 Pulmicort IH 0.5 mg Q12HRT ASCENCION Administration Cyclobenzaprine HCl 5 mg 04/27/19 16:47 05/06/19 01:18 Flexeril PO 5 mg Q8H PRN Administration Muscle Spasm Donepezil HCl 10 mg 04/28/19 10:00 05/06/19 09:10 Aricept PO 10 mg DAILY ASCENCION Administration Enoxaparin Sodium 40 mg 04/27/19 22:00 05/05/19 21:04 Lovenox SUB-Q 40 mg QDAY@2200 ASCENCION Administration Folic Acid 1 mg 04/28/19 10:00 05/06/19 09:10 Folvite PO 1 mg QDAY ASCENCION Administration Lactated Ringer's 1,000 mls @ 100 mls/hr 04/28/19 08:00 05/03/19 21:45 Lactated Ringers IV 100 mls/hr DIRECT ASCENCION Administration Morphine Sulfate 4 mg 04/27/19 13:04 05/01/19 22:40 Morphine IV 4 mg Q4H PRN Administration Pain , Severe (7-10) Morphine Sulfate 2 mg 04/28/19 09:05 05/06/19 07:57 Morphine IV 2 mg Q4H PRN Administration Pain, Moderate (4-6) Multivitamins 1 each 04/28/19 10:00 05/06/19 09:10 Theragran Tab PO 1 each QDAY ASCENCION Administration Nicotine 14 mg 04/27/19 18:45 05/06/19 09:10 Habitrol TD 14 mg QDAY ASCENCION Administration Ondansetron HCl 4 mg 04/27/19 15:05 04/28/19 23:29 Zofran IV 4 mg Q8H PRN Administration Nausea And Vomiting Oxycodone/Acetaminophen 1 tab 04/28/19 09:05 05/06/19 01:18 Percocet 5/325 PO 1 tab Q6H PRN Administration Pain, Moderate (4-6) Pantoprazole Sodium 40 mg 04/27/19 17:21 05/06/19 09:10 Protonix PO 40 mg QDAY ASCENCION Administration Polyethylene Glycol 17 gm 04/28/19 10:00 05/06/19 09:11 Miralax 3350 PO 17 gm QDAY ASCENCION Administration Sodium Chloride 10 ml 04/27/19 22:00 05/06/19 09:11 Sodium Chloride Flush Syringe 10 Ml IV 10 ml BID ASCENCION Administration Sodium Chloride 10 ml 04/27/19 15:05 Sodium Chloride Flush Syringe 10 Ml IV PRN PRN LINE FLUSH Thiamine HCl 100 mg 04/28/19 10:00 05/06/19 09:10 Vitamin B-1 PO 100 mg QDAY ASCENCION Administration Nutrition/Malnutrition Assess - Dietary Evaluation Nutrition/Malnutrition Findings: Nutrition Notes Start: 04/28/19 14:12 Freq: Status: Active Protocol: Document 05/04/19 14:35 OH (Rec: 05/04/19 14:41 OH [id number]) Nutrition Notes Need for Assessment generated from: MD Order Initial or Follow up Assessment Other Pertinent Diagnosis GERD, Hx dementia, R hip fracture, S/P trochanteric nailing R femur Current Diet Regular with Ensure Enlive daily Labs/Tests Reviewed Pertinent Medications Reviewed Height 6 ft 3 in Weight 62.505 kg [place] Body Weight (kg) 89.09 BMI 17.2 Weight Status Underweight Subjective/Other Information F/U: Pt. reports he has been eating well and enjoys ONS. Pt . without teeth but states no difficulty chewing/swallowing. Percent of energy/protein needs met: 100/100% Burn Absent Trauma Absent GI Symptoms None Current % PO Good (75-100%) #1 Nutrition Diagnosis Malnutrition Etiology dementia Diagnosis Progress(for reassessment Continues documentation) Is patient on ventilator? No Is Patient Ambulatory and/or Out of Bed No REE-([place]-confined to bed) 1806.204 Kcal/Kg value to use for calculation 37 Approximate Energy Requirements Using 2313 kcal/Kg Calculation Used for Recommendations Kcal/kg Additional Notes Protein Needs: 75-94g (1.2-1. 5g/kg) Fluid Needs: 1 ml/kcal Nutrition Intervention Change Diet Order: CONT REGULAR Add Supplement/Snack (indicate name/kcal Ensure Enlive Vanilla BID /protein ) Provides kCal: 700 Provides Protein (gm) 40 Goal #1 Meet at least 75% of calorie and protein needs via PO and ONS intakes Goal #2 Wt gain/maintenance Anticipated Discharge Needs: Regular diet with ONS daily to BID Follow-Up By: 05/07/19 Additional Comments f/u: po intake
[2019-05-06] MEDS: LOVENOX SUB-Q SCH (22:58)
[2019-05-07] MEDS: PERCOCET 5/325 PO PRN ×2 (00:59→19:07)
[2019-05-07] MEDS: MORPHINE IV PRN ×2 (05:42→12:07)
[2019-05-07] MEDS: BROVANA NEBU IH SCH ×2 (08:42→20:36)
[2019-05-07] MEDS: PULMICORT IH SCH ×2 (08:42→20:36)
[2019-05-07] MEDS: NORVASC PO SCH (11:54)
[2019-05-07] MEDS: THERAGRAN Tab PO SCH (11:54)
[2019-05-07] MEDS: PROTONIX PO SCH (11:54)
[2019-05-07] MEDS: VITAMIN B-1 PO SCH (11:54)
[2019-05-07] MEDS: SODIUM CHLORIDE FLUSH SYRINGE 10 ML IV SCH (11:55)
[2019-05-07] MEDS: FOLVITE PO SCH (11:55)
[2019-05-07] MEDS: MIRALAX 3350 PO SCH (11:57)
[2019-05-07] MEDS: HABITROL TD SCH (11:57)
[2019-05-07] MEDS: LACTATED RINGERS 1,000 ML IV SCH ×2 (12:11→23:04)
--- NOTE | 2019-05-07 17:20 | Progress Note ---
Assessment and Plan Assessment and plan: 63-year-old man who presents with right hip fracture Diagnoses Right hip fracture History of dementia Homelessness Peptic ulcer disease Chronic pain in back and foot Ambulatory dysfunction, uses a walker at baseline Tobacco abuse, currently every day smoker Moderate malnutrition Plan sp closed reduction on 04/28, pain meds Case management consult as patient will likely need rehabilitation placement after surgery Patient has been counseled on tobacco cessation greater than 10 minutes, nicotine patches when necessary PPI for history of GERD and peptic ulcer disease Dietitian consult, encouraged on balanced diet DVT prophylaxis with Lovenox cont PT awaiting placement, patient is currently homeless, awaiting SNF. Patient doesn't want to give information about his bank information or the source of income, which made it difficult to place him in a SNF. History Interval history: Patient was seen and evaluated this morning. Patient is complaining of pain and asking for pain medicine. Hospitalist Physical - Physical exam Narrative exam: Not in cardiopulmonary distress. The patient is emaciated. Vital signs as documented. Head exam is unremarkable. No scleral icterus . Neck is without jugular venous distension, thyromegaly, or carotid bruits. Lungs are clear to auscultation. Cardiac exam reveals regular rate and Rhythm. Abdominal exam reveals normal bowel sounds. Extremities are nonedematous and both femoral and pedal pulses are normal. 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 No focal weakness. - Constitutional Vitals: Temp Pulse Resp BP Pulse Ox 97.9 F 103 H 18 106/72 98 05/07/19 11:00 05/07/19 16:14 05/07/19 11:00 05/07/19 11:00 05/07/19 16:14 General appearance: Present: no acute distress, well-nourished Results - Labs CBC & Chem 7: 04/30/19 03:48 04/30/19 03:48 Labs: Laboratory Last Values WBC 4.2 K/mm3 (4.5-11.0) L 04/30/19 03:48 RBC 2.51 M/mm3 (3.65-5.03) L 04/30/19 03:48 Hgb 7.8 gm/dl (11.8-15.2) L 04/30/19 03:48 Hct 22.5 % (35.5-45.6) L 04/30/19 03:48 MCV 90 fl (84-94) 04/30/19 03:48 MCH 31 pg (28-32) 04/30/19 03:48 MCHC 35 % (32-34) H 04/30/19 03:48 RDW 15.3 % (13.2-15.2) H 04/30/19 03:48 Plt Count 127 K/mm3 (140-440) L 04/30/19 03:48 Lymph % (Auto) 24.8 % (13.4-35.0) 04/30/19 03:48 [place] % (Auto) 8.4 % (0.0-7.3) H 04/30/19 03:48 Eos % (Auto) 4.1 % (0.0-4.3) 04/30/19 03:48 Baso % (Auto) 0.3 % (0.0-1.8) 04/30/19 03:48 Lymph # 1.0 K/mm3 (1.2-5.4) L 04/30/19 03:48 [place] # 0.4 K/mm3 (0.0-0.8) 04/30/19 03:48 Eos # 0.2 K/mm3 (0.0-0.4) 04/30/19 03:48 Baso # 0.0 K/mm3 (0.0-0.1) 04/30/19 03:48 Seg Neutrophils % 62.4 % (40.0-70.0) 04/30/19 03:48 Seg Neutrophils # 2.6 K/mm3 (1.8-7.7) 04/30/19 03:48 PT 13.3 Sec. (12.2-14.9) 04/28/19 07:35 INR 1.04 (0.87-1.13) 04/28/19 07:35 APTT 30.3 Sec. (24.2-36.6) 04/28/19 07:35 Sodium 139 mmol/L (137-145) 04/30/19 03:48 Potassium 4.5 mmol/L (3.6-5.0) 04/30/19 03:48 Chloride 104.7 mmol/L (98-107) 04/30/19 03:48 Carbon Dioxide 26 mmol/L (22-30) 04/30/19 03:48 13 mmol/L 04/30/19 03:48 BUN 18 mg/dL (9-20) 04/30/19 03:48 1.0 mg/dL (0.8-1.5) 04/30/19 03:48 Estimated GFR > 60 ml/min 04/30/19 03:48 18 % 04/30/19 03:48 Glucose 107 mg/dL (75-100) H 04/30/19 03:48 Calcium 8.2 mg/dL (8.4-10.2) L 04/30/19 03:48 Blood Type O POSITIVE 04/28/19 07:35 Antibody Screen Negative 04/28/19 07:35 Crossmatch See Detail 04/28/19 07:35 Active Medications - Current Medications Current Medications: Generic Name Dose Route Start Last Admin Trade Name Freq PRN Reason Stop Dose Admin Acetaminophen 650 mg 04/27/19 15:05 Tylenol PO Q4H PRN Pain MILD(1-3)/Fever >100.5/AGARWAL Acetaminophen/Hydrocodone Bitart 1 each 04/27/19 14:58 05/03/19 17:42 [place] 5/325 PO 1 each Q6HR PRN Administration Pain Albuterol 2.5 mg 04/30/19 10:25 Proventil IH Q4HRT PRN Shortness Of Breath Amlodipine Besylate 10 mg 04/28/19 10:00 05/07/19 11:54 Norvasc PO 10 mg DAILY ASCENCION Administration Arformoterol Tartrate 15 mcg 04/30/19 20:00 05/07/19 08:42 Brovana Nebu IH 15 mcg Q12HRT ASCENCION Administration Budesonide 0.5 mg 04/30/19 20:00 05/07/19 08:42 Pulmicort IH 0.5 mg Q12HRT ASCENCION Administration Cyclobenzaprine HCl 5 mg 04/27/19 16:47 05/06/19 01:18 Flexeril PO 5 mg Q8H PRN Administration Muscle Spasm Donepezil HCl 10 mg 04/28/19 10:00 05/06/19 09:10 Aricept PO 10 mg DAILY ASCENCION Administration Enoxaparin Sodium 40 mg 04/27/19 22:00 05/06/19 22:58 Lovenox SUB-Q 40 mg QDAY@2200 ASCENCION Administration Folic Acid 1 mg 04/28/19 10:00 05/07/19 11:55 Folvite PO 1 mg QDAY ASCENCION Administration Lactated Ringer's 1,000 mls @ 100 mls/hr 04/28/19 08:00 05/07/19 12:11 Lactated Ringers IV 100 mls/hr DIRECT ASCENCION Administration Morphine Sulfate 4 mg 04/27/19 13:04 05/07/19 12:07 Morphine IV 4 mg Q4H PRN Administration Pain , Severe (7-10) Morphine Sulfate 2 mg 04/28/19 09:05 05/06/19 07:57 Morphine IV 2 mg Q4H PRN Administration Pain, Moderate (4-6) Multivitamins 1 each 04/28/19 10:00 05/07/19 11:54 Theragran Tab PO 1 each QDAY ASCENCION Administration Nicotine 14 mg 04/27/19 18:45 05/07/19 11:57 Habitrol TD 14 mg QDAY ASCENCION Administration Ondansetron HCl 4 mg 04/27/19 15:05 04/28/19 23:29 Zofran IV 4 mg Q8H PRN Administration Nausea And Vomiting Oxycodone/Acetaminophen 1 tab 04/28/19 09:05 05/07/19 00:59 Percocet 5/325 PO 1 tab Q6H PRN Administration Pain, Moderate (4-6) Pantoprazole Sodium 40 mg 04/27/19 17:21 05/07/19 11:54 Protonix PO 40 mg QDAY ASCENCION Administration Polyethylene Glycol 17 gm 04/28/19 10:00 05/07/19 11:57 Miralax 3350 PO 17 gm QDAY ASCENCION Administration Sodium Chloride 10 ml 04/27/19 22:00 05/07/19 11:55 Sodium Chloride Flush Syringe 10 Ml IV 10 ml BID ASCENCION Administration Sodium Chloride 10 ml 04/27/19 15:05 Sodium Chloride Flush Syringe 10 Ml IV PRN PRN LINE FLUSH Thiamine HCl 100 mg 04/28/19 10:00 05/07/19 11:54 Vitamin B-1 PO 100 mg QDAY ASCENCION Administration Nutrition/Malnutrition Assess - Dietary Evaluation Nutrition/Malnutrition Findings: Nutrition Notes Start: 04/28/19 14:12 Freq: Status: Active Protocol: Document 05/07/19 15:54 RM (Rec: 05/07/19 15:59 RM [id number]) Nutrition Notes Initial or Follow up Reassessment Current Diagnosis Hypertension Other Pertinent Diagnosis GERD, Hx dementia, R hip fracture, S/P trochanteric nailing R femur Current Diet Regular with Ensure Enlive BID Labs/Tests Reviewed Pertinent Medications Reviewed Height 6 ft 3 in Weight 62.505 kg [place] Body Weight (kg) 89.09 BMI 17.2 Subjective/Other Information Pt stated that his appetite is poor d/t pain. Stated that he eats slowly but eats as much as he can. Noted lunch at bedside w/25% eaten and half drunk Ensure Enlive. Noted 2 other unopened Ensure Enlive. Pt stated that he is unable drink it BID. Percent of energy/protein needs met: 33%/42% Burn Absent Trauma Absent #1 Nutrition Diagnosis Malnutrition Diagnosis Progress(for reassessment Continues documentation) Is patient on ventilator? No Is Patient Ambulatory and/or Out of Bed No REE-([place]-confined to bed) 1806.204 Kcal/Kg value to use for calculation 37 Approximate Energy Requirements Using 2313 kcal/Kg Calculation Used for Recommendations Kcal/kg Additional Notes Protein Needs: 75-94g (1.2-1. 5g/kg) Fluid Needs: 1 ml/kcal Nutrition Intervention Change Diet Order: Continue current Add Supplement/Snack (indicate name/kcal Ensure Enlive Chocolate, /protein ) Vanilla 1 daily Provides kCal: 350 Provides Protein (gm) 20 Goal #1 Meet at least 75% of calorie and protein needs via PO and ONS intakes Goal #2 Wt gain/maintenance Anticipated Discharge Needs: Regular diet with ONS daily Follow-Up By: 05/11/19 Additional Comments Follow for PO and ONS intakes
[2019-05-07] MEDS: ARICEPT PO SCH (19:08)
[2019-05-07] MEDS: LOVENOX SUB-Q SCH (21:32)
[2019-05-07] MEDS: FLEXERIL PO PRN (21:32)
[2019-05-08] MEDS ORDERED: ROBITUSSIN PO PRN (00:50)
[2019-05-08] MEDS: NORCO 5/325 PO PRN (02:22)
[2019-05-08] MEDS ORDERED: NORCO 5/325 PO PRN (09:08)
[2019-05-08] MEDS: BROVANA NEBU IH SCH (09:19)
[2019-05-08] MEDS: PULMICORT IH SCH (09:19)
[2019-05-08] MEDS ORDERED: NEURONTIN PO SCH (10:00)
[2019-05-08] MEDS: PROTONIX PO SCH (10:38)
[2019-05-08] MEDS: VITAMIN B-1 PO SCH (10:38)
[2019-05-08] MEDS: ARICEPT PO SCH (10:38)
[2019-05-08] MEDS: FOLVITE PO SCH (10:39)
[2019-05-08] MEDS: NORVASC PO SCH (10:39)
[2019-05-08] MEDS: MIRALAX 3350 PO SCH (10:40)
[2019-05-08] MEDS: HABITROL TD SCH (10:41)
[2019-05-08] MEDS: THERAGRAN Tab PO SCH (10:42)
--- NOTE | 2019-05-08 15:12 | Progress Note ---
Assessment and Plan Assessment and plan: 63-year-old man who presents with right hip fracture Diagnoses Right hip fracture History of dementia Homelessness Peptic ulcer disease Chronic pain in back and foot Ambulatory dysfunction, uses a walker at baseline Tobacco abuse, currently every day smoker Moderate malnutrition Plan sp closed reduction on 04/28, pain meds Case management consult as patient will likely need rehabilitation placement after surgery Patient has been counseled on tobacco cessation greater than 10 minutes, nicotine patches when necessary PPI for history of GERD and peptic ulcer disease Dietitian consult, encouraged on balanced diet DVT prophylaxis with Lovenox cont PT Awaiting placement, patient is currently homeless, awaiting SNF. Case management and SW is working for placement. History Interval history: Patient was seen and evaluated this morning. Patient is complaining of pain and adjust his pain medications. Hospitalist Physical - Physical exam Narrative exam: Not in cardiopulmonary distress. The patient is emaciated. Vital signs as documented. Head exam is unremarkable. No scleral icterus . Neck is without jugular venous distension, thyromegaly, or carotid bruits. Lungs are clear to auscultation. Cardiac exam reveals regular rate and Rhythm. Abdominal exam reveals normal bowel sounds. Extremities are nonedematous and both femoral and pedal pulses are normal. 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 - Constitutional Vitals: Temp Pulse Resp BP Pulse Ox 98.6 F 97 H 18 110/73 98 05/08/19 11:17 05/08/19 11:18 05/08/19 11:17 05/08/19 11:17 05/08/19 11:18 General appearance: Present: no acute distress, well-nourished Results - Labs CBC & Chem 7: 04/30/19 03:48 04/30/19 03:48 Labs: Laboratory Last Values WBC 4.2 K/mm3 (4.5-11.0) L 04/30/19 03:48 RBC 2.51 M/mm3 (3.65-5.03) L 04/30/19 03:48 Hgb 7.8 gm/dl (11.8-15.2) L 04/30/19 03:48 Hct 22.5 % (35.5-45.6) L 04/30/19 03:48 MCV 90 fl (84-94) 04/30/19 03:48 MCH 31 pg (28-32) 04/30/19 03:48 MCHC 35 % (32-34) H 04/30/19 03:48 RDW 15.3 % (13.2-15.2) H 04/30/19 03:48 Plt Count 127 K/mm3 (140-440) L 04/30/19 03:48 Lymph % (Auto) 24.8 % (13.4-35.0) 04/30/19 03:48 [place] % (Auto) 8.4 % (0.0-7.3) H 04/30/19 03:48 Eos % (Auto) 4.1 % (0.0-4.3) 04/30/19 03:48 Baso % (Auto) 0.3 % (0.0-1.8) 04/30/19 03:48 Lymph # 1.0 K/mm3 (1.2-5.4) L 04/30/19 03:48 [place] # 0.4 K/mm3 (0.0-0.8) 04/30/19 03:48 Eos # 0.2 K/mm3 (0.0-0.4) 04/30/19 03:48 Baso # 0.0 K/mm3 (0.0-0.1) 04/30/19 03:48 Seg Neutrophils % 62.4 % (40.0-70.0) 04/30/19 03:48 Seg Neutrophils # 2.6 K/mm3 (1.8-7.7) 04/30/19 03:48 PT 13.3 Sec. (12.2-14.9) 04/28/19 07:35 INR 1.04 (0.87-1.13) 04/28/19 07:35 APTT 30.3 Sec. (24.2-36.6) 04/28/19 07:35 Sodium 139 mmol/L (137-145) 04/30/19 03:48 Potassium 4.5 mmol/L (3.6-5.0) 04/30/19 03:48 Chloride 104.7 mmol/L (98-107) 04/30/19 03:48 Carbon Dioxide 26 mmol/L (22-30) 04/30/19 03:48 13 mmol/L 04/30/19 03:48 BUN 18 mg/dL (9-20) 04/30/19 03:48 1.0 mg/dL (0.8-1.5) 04/30/19 03:48 Estimated GFR > 60 ml/min 04/30/19 03:48 18 % 04/30/19 03:48 Glucose 107 mg/dL (75-100) H 04/30/19 03:48 Calcium 8.2 mg/dL (8.4-10.2) L 04/30/19 03:48 Blood Type O POSITIVE 04/28/19 07:35 Antibody Screen Negative 04/28/19 07:35 Crossmatch See Detail 04/28/19 07:35 Active Medications - Current Medications Current Medications: Generic Name Dose Route Start Last Admin Trade Name Freq PRN Reason Stop Dose Admin Acetaminophen 650 mg 04/27/19 15:05 Tylenol PO Q4H PRN Pain MILD(1-3)/Fever >100.5/AGARWAL Acetaminophen/Hydrocodone Bitart 2 each 05/08/19 09:08 05/08/19 10:37 Rew 5/325 PO 2 each Q4H PRN Administration Pain, Moderate (4-6) Albuterol 2.5 mg 04/30/19 10:25 Proventil IH Q4HRT PRN Shortness Of Breath Amlodipine Besylate 10 mg 04/28/19 10:00 05/08/19 10:39 Norvasc PO 10 mg DAILY ASCENCION Administration Arformoterol Tartrate 15 mcg 04/30/19 20:00 05/08/19 09:19 Brovana Nebu IH 15 mcg Q12HRT ASCENCION Administration Budesonide 0.5 mg 04/30/19 20:00 05/08/19 09:19 Pulmicort IH 0.5 mg Q12HRT ASCENCION Administration Cyclobenzaprine HCl 5 mg 04/27/19 16:47 05/07/19 21:32 Flexeril PO 5 mg Q8H PRN Administration Muscle Spasm Donepezil HCl 10 mg 04/28/19 10:00 05/08/19 10:38 Aricept PO 10 mg DAILY ASCENCION Administration Enoxaparin Sodium 40 mg 04/27/19 22:00 05/07/19 21:32 Lovenox SUB-Q 40 mg QDAY@2200 ASCENCION Administration Folic Acid 1 mg 04/28/19 10:00 05/08/19 10:39 Folvite PO 1 mg QDAY ASCENCION Administration Gabapentin 300 mg 05/08/19 10:00 05/08/19 10:38 Neurontin PO 300 mg BID ASCENCION Administration Guaifenesin 200 mg 05/08/19 00:50 Robitussin PO Q4H PRN Cough Lactated Ringer's 1,000 mls @ 100 mls/hr 04/28/19 08:00 05/07/19 23:04 Lactated Ringers IV 100 mls/hr DIRECT ASCENCION Administration Multivitamins 1 each 04/28/19 10:00 05/08/19 10:42 Theragran Tab PO 1 each QDAY ASCENCION Administration Nicotine 14 mg 04/27/19 18:45 05/08/19 10:41 Habitrol TD 14 mg QDAY ASCENCION Administration Ondansetron HCl 4 mg 04/27/19 15:05 04/28/19 23:29 Zofran IV 4 mg Q8H PRN Administration Nausea And Vomiting Oxycodone/Acetaminophen 1 tab 04/28/19 09:05 05/07/19 19:07 Percocet 5/325 PO 1 tab Q6H PRN Administration Pain, Moderate (4-6) Pantoprazole Sodium 40 mg 04/27/19 17:21 05/08/19 10:38 Protonix PO 40 mg QDAY ASCENCION Administration Polyethylene Glycol 17 gm 04/28/19 10:00 05/08/19 10:40 Miralax 3350 PO Not Given QDAY ASCENCION Sodium Chloride 10 ml 04/27/19 22:00 05/07/19 11:55 Sodium Chloride Flush Syringe 10 Ml IV 10 ml BID ASCENCION Administration Sodium Chloride 10 ml 04/27/19 15:05 Sodium Chloride Flush Syringe 10 Ml IV PRN PRN LINE FLUSH Thiamine HCl 100 mg 04/28/19 10:00 05/08/19 10:38 Vitamin B-1 PO 100 mg QDAY ASCENCION Administration Nutrition/Malnutrition Assess - Dietary Evaluation Nutrition/Malnutrition Findings: Nutrition Notes Start: 04/28/19 14:12 Freq: Status: Active Protocol: Document 05/07/19 15:54 RM (Rec: 05/07/19 15:59 RM [id number]) Nutrition Notes Initial or Follow up Reassessment Current Diagnosis Hypertension Other Pertinent Diagnosis GERD, Hx dementia, R hip fracture, S/P trochanteric nailing R femur Current Diet Regular with Ensure Enlive BID Labs/Tests Reviewed Pertinent Medications Reviewed Height 6 ft 3 in Weight 62.505 kg [place] Body Weight (kg) 89.09 BMI 17.2 Subjective/Other Information Pt stated that his appetite is poor d/t pain. Stated that he eats slowly but eats as much as he can. Noted lunch at bedside w/25% eaten and half drunk Ensure Enlive. Noted 2 other unopened Ensure Enlive. Pt stated that he is unable drink it BID. Percent of energy/protein needs met: 33%/42% Burn Absent Trauma Absent #1 Nutrition Diagnosis Malnutrition Diagnosis Progress(for reassessment Continues documentation) Is patient on ventilator? No Is Patient Ambulatory and/or Out of Bed No REE-([facility]-confined to bed) 1806.204 Kcal/Kg value to use for calculation 37 Approximate Energy Requirements Using 2313 kcal/Kg Calculation Used for Recommendations Kcal/kg Additional Notes Protein Needs: 75-94g (1.2-1. 5g/kg) Fluid Needs: 1 ml/kcal Nutrition Intervention Change Diet Order: Continue current Add Supplement/Snack (indicate name/kcal Ensure Enlive Chocolate, /protein ) Vanilla 1 daily Provides kCal: 350 Provides Protein (gm) 20 Goal #1 Meet at least 75% of calorie and protein needs via PO and ONS intakes Goal #2 Wt gain/maintenance Anticipated Discharge Needs: Regular diet with ONS daily Follow-Up By: 05/11/19 Additional Comments Follow for PO and ONS intakes
--- NOTE | 2019-05-08 16:52 | Discharge Summary ---
Providers - Providers Date of Admission: 04/27/19 09:14 Attending physician: TOMAS BAILEY MD 04/27/19 09:14 Consult to Physician [CONS] Routine Comment: DR URVASHI DOWD W/ DR HORAN @0904 Consulting Provider: JESE HORAN Physician Instructions: Reason For Exam: right intertrochanteric fracture 04/28/19 09:07 Physical Therapy Evaluation and Treat [CONS] Routine Comment: Reason For Exam: postop evaluation Weight bearing status?: Partial wt bearing Assistive devices?: Yes If so list: Walker 05/02/19 16:18 Consult to Dietitian/Nutrition [CONS] Routine Physician Instructions: Reason For Exam: Reason for Consult: Malnutrition [facility] Reason for admission: right femoral fracture Condition: Fair Pertinent studies: Hip x-ray FINDINGS: Comminuted intertrochanteric fracture of the proximal right femur. No evidence of hip dislocation. No pelvic fracture. There are advanced degenerative changes lower lumbar spine. Procedures: Closed reduction of the femoral fracture Hospital course: 63-year-old man who comes to the hospital after he had a ground-level fall this morning. He was at his friend's house, he has chronic back pain and chronic foot pain and uses a walker for ambulation secondary to chronic foot deformities. He was at his friend's house and he slipped and fell. He is currently staying with his friend because he is homeless. He denies hitting his head on a loss of consciousness, he noticed that he had severe pain in his right hip and was unable to bear weight on it. patient was admitted to the floor and orthopedics consulted, did closed reduction of the right femoral fracture was done. patient was homeless and [facility] HADDAD was consulted and discharged to [facility]. Patient is complaining chronic pain and given pain medicine. patient was hemodynamically stable at the time of discharge. Disposition: [id number] HOME [facility] Time spent for discharge: 32 minutes - Discharge Diagnoses (1) Closed intertrochanteric fracture of right femur Status: Acute Qualifiers: Encounter type: initial encounter Fracture alignment: displaced Qualified Code(s): S72.141A - Displaced intertrochanteric fracture of right femur, initial encounter for closed fracture (2) Fall from ground level Status: Acute (3) Cachexia Status: Acute (4) Closed fracture of left calcaneus Status: Acute Qualifiers: Encounter type: sequela Calcaneus location: unspecified portion of calcaneus Fracture alignment: displaced Qualified Code(s): S92.002S - Unspecified fracture of left calcaneus, sequela (5) Homelessness Status: Acute (6) Chronic pain disorder Status: Acute Core Measure Documentation - Palliative Care Palliative Care/ Comfort Measures: Not Applicable - Core Measures Any of the following diagnoses?: none Exam - Physical Exam Narrative exam: Not in cardiopulmonary distress. The patient is emaciated. Vital signs as documented. Head exam is unremarkable. No scleral icterus . Neck is without jugular venous distension, thyromegaly, or carotid bruits. Lungs are clear to auscultation. Cardiac exam reveals regular rate and Rhythm. Abdominal exam reveals normal bowel sounds. Extremities are nonedematous and both femoral and pedal pulses are normal. 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 No focal weakness. - Constitutional Vitals: Temp Pulse Resp BP Pulse Ox 98.6 F 97 H 18 110/73 98 05/08/19 11:17 05/08/19 11:18 05/08/19 11:17 05/08/19 11:17 05/08/19 11:18 Plan Activity: no restrictions Weight Bearing Status: Full Weight Bearing Diet: regular Follow up with: GLORIA VALDES MD [Primary Care Provider] - 3-5 Days Prescriptions: Donepezil [Aricept] 5 mg PO DAILY #30 tablet Ipratropium [Atrovent NEB] 0.5 mg PO BID #60 nebu Arformoterol Nebu [Brovana Nebu] 15 mcg IH Q12HRT #100 ml Cyclobenzaprine [Flexeril 10 MG TAB] 5 mg PO Q8H PRN #30 tablet PRN Reason: Muscle Spasm Nicotine [Habitrol] 14 mg TD QDAY #7 patch Polyethylene Glycol 3350 [Miralax] 119 gm PO DAILY #30 powder Gabapentin [Neurontin] 300 mg PO BID #60 capsule HYDROcodone/APAP 5-325 [[place] 5-325 mg TAB] 2 each PO Q4H PRN #15 tablet PRN Reason: Pain, Moderate (4-6) amLODIPine [Norvasc] 10 mg PO DAILY #30 tablet ALBUTEROL NEB's [Proventil 0.083% NEBS] 2.5 mg IH Q4HRT PRN #60 nebu PRN Reason: Shortness Of Breath Thiamine [Vitamin B-1] 100 mg PO QDAY #30 tablet
[2019-05-08 17:12] VITALS: BP 115/76
== END 2019-05-08 18:05 | disposition home health service (06) | DRG 481 ==
LOC: ED 07:40 → 3B-SURG 09:14
PROVIDERS: ADMIT Internal Medicine; ATTEND Internal Medicine
PROC: 0QS606Z Reposition Right Upper Femur with Intramedullary Internal Fixation Device, Open Approach (ICD-10-PCS; principal; 2019-04-28)
PROC: 30233N1 Transfusion of Nonautologous Red Blood Cells into Peripheral Vein, Percutaneous Approach (ICD-10-PCS; 2019-04-29)
DX: S72.141A Displaced intertrochanteric fracture of right femur, initial encounter for closed fracture (principal); D62 Acute posthemorrhagic anemia; E44.0 Moderate protein-calorie malnutrition; Z68.1 Body mass index [BMI] 19.9 or less, adult; R64 Cachexia; G89.29 Other chronic pain; F17.210 Nicotine dependence, cigarettes, uncomplicated; K21.9 Gastro-esophageal reflux disease without esophagitis; I10 Essential (primary) hypertension; K27.9 Peptic ulcer, site unspecified, unspecified as acute or chronic, without hemorrhage or perforation; Z59.0 Homelessness; W18.30XA Fall on same level, unspecified, initial encounter; Y93.89 Activity, other specified; Y92.89 Other specified places as the place of occurrence of the external cause; Y99.8 Other external cause status
CPT/HCPCS: 36415; 72170; 80048; 85014; 85018; 85025; 85610; 85730; 86850; 86900; 86901; 86920; 94640; 94644; 94760; 96361; 96365; 96375; G0378; C1713; C1769; J0690; J1170; J1650; J1885; J2060; J2270; J2370; J2405; J2704; J3010; J7030; J7040; J7120; P9016

== ENCOUNTER 2019-05-23 14:11 | Emergency (ER) | payer MEDICARE ==
[2019-05-23] MEDS ORDERED: TYLENOL PO ONE (14:48)
[2019-05-23] MEDS ORDERED: IBUPROFEN PO ONE (14:48)
--- NOTE | 2019-05-23 14:50 | Emergency Department Report ---
ED General Adult HPI - General Chief complaint: Extremity Injury, Upper Stated complaint: R HIP PAIN Time Seen by Provider: 05/23/19 14:29 Source: patient, EMS (ems notes not available at time of chart dictation), RN notes reviewed, old records reviewed Mode of arrival: Stretcher Limitations: Physical Limitation - History of Present Illness Initial comments: This is a 63-year-old gentleman. The patient is not known to this provider previously. Patient has a history of homelessness, DJD, cachexia, malnutrition, recently admitted to this hospital for open reduction internal fixation of right femur fracture. He appeared to have a complicated hospital course. As per documented case management and physical therapy notes, patient received a [employer] walker on May 08, and was documented to ambulate 50 feet. In addition, an order was placed for home health and physical therapy. Patient was further discharged to [facility]; Mr. Obregon [id number] Address: [address] [place] [address] Today, the patient presents today with a complaint of falls. He reports falling 4 days ago. He reports that he grabbed onto a door. He states he did not fall onto his head or neck. 3 days ago he landed on his elbow. He also reports landing on his left forearm. He also complains of chronic right hip and thigh pain. This pain is sharp, constant, increases with palpation and range of motion. It decreases with rest. He states he is up-to-date with tetanus vaccination. He further is asking for food to eat. -: Gradual, Sudden Location: left, right, upper extremity, lower extremity Radiation: extremity Quality: aching Consistency: other Improves with: other Worsens with: other - Related Data Home Medications Medication Instructions Recorded Confirmed Last Taken ALBUTEROL Inhaler (OR & NICU) 04/07/19 Unknown Previous Rx's Medication Instructions Recorded Last Taken Type Folic Acid [Folvite] 1 mg PO QDAY #30 tablet 10/10/16 Unknown Rx Multivitamin Tab [Multiple Vitamin 1 each PO QDAY #30 tablet 10/10/16 Unknown Rx TAB (Theragran)] Acetaminophen [Acetaminophen ER] 650 mg PO Q8HR PRN #24 tablet.er 04/10/19 Unknown Rx ALBUTEROL NEB's [Proventil 0.083% 2.5 mg IH Q4HRT PRN #60 nebu 05/08/19 Unknown Rx NEBS] Arformoterol Nebu [Brovana Nebu] 15 mcg IH Q12HRT #100 ml 05/08/19 Unknown Rx Cyclobenzaprine [Flexeril 10 MG 5 mg PO Q8H PRN #30 tablet 05/08/19 Unknown Rx TAB] Donepezil [Aricept] 5 mg PO DAILY #30 tablet 05/08/19 Unknown Rx Gabapentin [Neurontin] 300 mg PO BID #60 capsule 05/08/19 Unknown Rx HYDROcodone/APAP 5-325 [[place] 2 each PO Q4H PRN #15 tablet 05/08/19 Unknown Rx 5-325 mg TAB] Ipratropium [Atrovent NEB] 0.5 mg PO BID #60 nebu 05/08/19 Unknown Rx Nicotine [Habitrol] 14 mg TD QDAY #7 patch 05/08/19 Unknown Rx Polyethylene Glycol 3350 [Miralax] 119 gm PO DAILY #30 powder 05/08/19 Unknown Rx Thiamine [Vitamin B-1] 100 mg PO QDAY #30 tablet 05/08/19 Unknown Rx amLODIPine [Norvasc] 10 mg PO DAILY #30 tablet 05/08/19 Unknown Rx Allergies Allergy/AdvReac Type Severity Reaction Status Date / Time No Known Allergies Allergy Verified 05/23/19 16:33 ED Review of Systems ROS: Stated complaint: R HIP PAIN Other details as noted in HPI Constitutional: denies: fever Eyes: denies: eye discharge ENT: denies: epistaxis Respiratory: denies: cough Cardiovascular: denies: syncope Musculoskeletal: arthralgia, myalgia Skin: lesions, other (ecchymosis, right elbow skin avulsion, left forearm skin avulsion) Neurological: other (no complaint of new or different focal extremity weakness, numbness). denies: numbness, paresthesias ED Past Medical Hx - Past Medical History Hx Hypertension: Yes Hx Congestive Heart Failure: No Hx Diabetes: No Hx GERD: Yes Hx Asthma: No Hx COPD: No Additional medical history: Left foot pain, Back pain, gastric ulcers - Surgical History Additional Surgical History: right knee surgery, right wrist surgery, Stomach surgery - Social History Smoking Status: Current Every Day Smoker Substance Use Type: Alcohol, Cocaine, Heroin, Marijuana - Medications Home Medications: Home Medications Medication Instructions Recorded Confirmed Last Taken Type Folic Acid [Folvite] 1 mg PO QDAY #30 tablet 10/10/16 05/03/19 Unknown Rx Multivitamin Tab [Multiple Vitamin 1 each PO QDAY #30 tablet 10/10/16 05/03/19 Unknown Rx TAB (Theragran)] ALBUTEROL Inhaler (OR & NICU) 04/07/19 Unknown History Acetaminophen [Acetaminophen ER] 650 mg PO Q8HR PRN #24 tablet.er 04/10/19 05/03/19 Unknown Rx ALBUTEROL NEB's [Proventil 0.083% 2.5 mg IH Q4HRT PRN #60 nebu 05/08/19 Unknown Rx NEBS] Arformoterol Nebu [Brovana Nebu] 15 mcg IH Q12HRT #100 ml 05/08/19 Unknown Rx Cyclobenzaprine [Flexeril 10 MG 5 mg PO Q8H PRN #30 tablet 05/08/19 Unknown Rx TAB] Donepezil [Aricept] 5 mg PO DAILY #30 tablet 05/08/19 Unknown Rx Gabapentin [Neurontin] 300 mg PO BID #60 capsule 05/08/19 Unknown Rx HYDROcodone/APAP 5-325 [[place] 2 each PO Q4H PRN #15 tablet 05/08/19 Unknown Rx 5-325 mg TAB] Ipratropium [Atrovent NEB] 0.5 mg PO BID #60 nebu 05/08/19 Unknown Rx Nicotine [Habitrol] 14 mg TD QDAY #7 patch 05/08/19 Unknown Rx Polyethylene Glycol 3350 [Miralax] 119 gm PO DAILY #30 powder 05/08/19 Unknown Rx Thiamine [Vitamin B-1] 100 mg PO QDAY #30 tablet 05/08/19 Unknown Rx amLODIPine [Norvasc] 10 mg PO DAILY #30 tablet 05/08/19 Unknown Rx ED Physical Exam - General Limitations: Physical Limitation General appearance: alert, in no apparent distress - Head Head exam: Present: atraumatic, normocephalic - Eye Eye exam: Present: normal appearance, EOMI. Absent: nystagmus - ENT ENT exam: Present: normal exam, normal orophraynx, mucous membranes moist, normal external ear exam - Neck Neck exam: Present: normal inspection, full ROM. Absent: tenderness, meningismus - Respiratory Respiratory exam: Present: normal lung sounds bilaterally. Absent: respiratory distress - Cardiovascular Cardiovascular Exam: Present: regular rate, normal rhythm, normal heart sounds. Absent: bradycardia, tachycardia, irregular rhythm, systolic murmur, diastolic murmur, rubs, gallop - GI/Abdominal GI/Abdominal exam: Present: soft. Absent: distended, tenderness, guarding, rebound, rigid, pulsatile mass - Rectal Rectal exam: Present: deferred - Extremities Exam Extremities exam: Present: full ROM (multiple ecchymoses noted.), other (2+ pulses noted in the bilateral upper, lower extremities. Compartments soft. No long bony tenderness. The pelvis is stable.). Absent: normal inspection (there is a left lateral dorsal forearm skin avulsion. There is a right punctate elbow laceration, 0.5 cm.), calf tenderness - Back Exam Back exam: Present: normal inspection, full ROM. Absent: tenderness, CVA tenderness (R), CVA tenderness (L), paraspinal tenderness, vertebral tenderness - Neurological Exam Neurological exam: Present: alert, oriented X3 - Psychiatric Psychiatric exam: Present: anxious - Skin Skin exam: Present: warm, abrasion, ecchymosis ED Course Vital Signs 05/23/19 05/23/19 05/23/19 14:34 14:39 15:00 Temperature 97.7 F Pulse Rate 98 H 98 H 89 Respiratory 14 20 15 Rate Blood Pressure 133/85 Blood Pressure 142/76 [Left] O2 Sat by Pulse 98 99 Oximetry 05/23/19 05/23/19 16:01 16:30 Temperature Pulse Rate Respiratory Rate Blood Pressure 133/85 147/90 Blood Pressure [Left] O2 Sat by Pulse 99 100 Oximetry - Reevaluation(s) Reevaluation #1: 05/23/19 16:22 Differential diagnosis, including not limited to: Homelessness, debility, gait difficulty, history of falls, abrasion, avulsion, case management patient Assessment and plan: 63-year-old gentleman who had a recent ORIF of right femoral fracture, is documented to be walking 50 feet with a rolling walker as per prior case management notes, reporting falls, last fall was reportedly 3 days ago, indicates not following in his head, or his neck, with chronic pain, stating that he will get his SSI check tomorrow, and asking to eat. The patient is afebrile with reassuring vital signs and has an unremarkable physical examination. There is a punctate lesion on the right elbow which is not suitable for laceration closure, as the patient reports that it is 72 hours old. His x-rays are unremarkable. Screening laboratory studies unremarkable. Vital signs unremarkable. Patient does not appear to have an emergent medical condition at this time. He is pain is treated with Tylenol and Motrin. He was discharged with prescriptions on 05/08/2019. A case management consult has been requested. The patient does not appear to require hospitalization at this time. ED Medical Decision Making - Lab Data Result diagrams: 05/23/19 15:36 Vital Signs 05/23/19 14:39 Temperature 97.7 F Pulse Rate 98 H Respiratory 20 Rate Blood Pressure 142/76 [Left] O2 Sat by Pulse 98 Oximetry Vital Signs 05/23/19 05/23/19 05/23/19 14:34 14:39 15:00 Temperature 97.7 F Pulse Rate 98 H 98 H 89 Respiratory 14 20 15 Rate Blood Pressure 133/85 Blood Pressure 142/76 [Left] O2 Sat by Pulse 98 99 Oximetry 05/23/19 05/23/19 16:01 16:30 Temperature Pulse Rate Respiratory Rate Blood Pressure 133/85 147/90 Blood Pressure [Left] O2 Sat by Pulse 99 100 Oximetry Lab Results 05/23/19 Range/Units 15:36 Sodium 135 L (137-145) mmol/L Potassium 3.9 (3.6-5.0) mmol/L Chloride 98.4 (98-107) mmol/L Carbon Dioxide 27 (22-30) mmol/L Anion Gap 14 mmol/L BUN 15 (9-20) mg/dL Creatinine 1.0 (0.8-1.5) mg/dL Estimated GFR > 60 ml/min BUN/Creatinine Ratio 15 % Glucose 80 (75-100) mg/dL Calcium 9.2 (8.4-10.2) mg/dL Magnesium 1.60 L (1.7-2.3) mg/dL Total Creatine Kinase 114 (55-170) units/L - Radiology Data Radiology results: report reviewed, image reviewed Print Report Referring Physician: ADEOLA DEE Patient Name: MARISELA RODRIGUEZ Date of : 1955 Sex: Male Report Date: 2019-05-23 Report Status: Finalized Findings [facility] [address] [address] XRay Report Signed Patient: MARISELA RODRIGUEZ MR#: [id number] : 1955 Acct:[id number] Age/Sex: 63 / M ADM Date: 05/23/19 Loc: ED Attending Dr: Ordering Physician: ADEOLA DEE MD Date of Service: 05/23/19 Procedure(s): XR hip 2-3V RT Accession Number(s): [id number] cc: ADEOLA DEE MD Fluoro Time In Minutes: RIGHT HIP 4 VIEW(S) INDICATION / CLINICAL INFORMATION: fall right hip pain COMPARISON: Right hip x-ray 04/27/2019 FINDINGS: BONES / JOINT(S): No acute fracture or subluxation. No significant arthritis. SOFT TISSUES: No significant abnormality. ADDITIONAL FINDINGS: There has been interval fracture ORIF of the previously noted markedly displaced right intertrochanteric fracture with right femoral neck screw and i ntramedullary nail which has shown mild interval healing with some external callus formation. IMPRESSION: Healing right intertrochanteric hip fracture status post ORIF. Signer Name: Ramana Awan MD Signed: 05/23/2019 3:57 PM Workstation Name: [id number] Transcribed By: TL Dictated By: Ramana Awan MD Electronically Authenticated By: Ramana Awan MD Signed Date/Time: 05/23/19 1557 eport Referring Physician: ADEOLA DEE Patient Name: MARISELA RODRIGUEZ Date of : 1955 Sex: Male Report Date: 2019-05-23 Report Status: Finalized Findings [address] [address] XRay Report Signed Patient: MARISELA RODRIGUEZ MR#: [id number] : 1955 Acct:[id number] Age/Sex: 63 / M ADM Date: 05/23/19 Loc: ED Attending Dr: Ordering Physician: ADEOLA DEE MD Date of Service: 05/23/19 Procedure(s): XR elbow 3+V RT Accession Number(s): [id number] cc: ADEOLA DEE MD Fluoro Time In Minutes: RIGHT ELBOW 3 VIEW(S) INDICATION / CLINICAL INFORMATION: fall on right elbow COMPARISON: None available. FINDINGS: BONES / JOINT(S): No acute fracture or subluxation. Severe radiocapitellar joint osteoarthrosis is noted with loss of joint space and osteophyte formation. Subjective osteopenia is present. SOFT TISSUES: Calcified body along the lateral/radial aspect of the lateral epicondyle represents calcific tendinosis in the common extensor tendon versus mineralization in the radial collateral ligament, possibly associated with an old injury. ADDITIONAL FINDINGS: None. IMPRESSION: 1. No acute injury is identified. With continued pain and limited range of motion, further evaluation may be performed with CT or MRI. Signer Name: Casa Friend MD Signed: 05/23/2019 3:53 PM Workstation Name: [id number] Transcribed By: LISA Dictated By: Casa Friend MD Electronically Authenticated By: Casa Friend MD Signed Date/Time: 05/23/19 1553 Print Report Referring Physician: ADEOLA DEE Patient Name: MARISELA RODRIGUEZ Date of : 1955 Sex: Male Report Date: 2019-05-23 Report Status: Finalized Findings [facility] [address] [place] [address] XRay Report Signed Patient: MARISELA RODRIGUEZ MR#: [id number] 2769 : 1955 Acct:[id number] Age/Sex: 63 / M ADM Date: 05/23/19 Loc: ED Attending Dr: Ordering Physician: ADEOLA DEE MD Date of Service: 05/23/19 Procedure(s): XR forearm LT Accession Number(s): [id number] cc: ADEOLA DEE MD Fluoro Time In Minutes: LEFT FOREARM 3 VIEWS INDICATION / CLINICAL INFORMATION: faLl left forearm pain. COMPARISON: None available. FINDINGS: Osteopenia is present. No acute fracture or dislocation is seen within the left radius or ulna. There is focal ossific density which is well corticated along the dorsal aspect of the wrist likely secondary to old triquetral fracture. Signer Name: Ramana Awan MD Signed: 05/23/2019 3:54 PM Workstation Name: [id number] Transcribed By: DEVON Dictated By: Ramana Awan MD Electronically Authenticated By: Ramana wAan MD Signed Date/Time: 05/23/19 4210 Critical care attestation.: If time is entered above; I have spent that time in minutes in the direct care of this critically ill patient, excluding procedure time. ED Disposition Clinical Impression: Fall from ground level, Chronic pain disorder, Case management patient, Multiple abrasions Disposition: - TO HOME OR SELFCARE Is pt being admited?: No Does the pt Need Aspirin: No Condition: Stable Additional Instructions: Continue outpatient medications. Follow up with your primary care doctor within the next month. Follow-up with your orthopedist within the next week to 10 days. Rest, avoid heavy lifting, and avoid strenuous physical activities. Take Tylenol alternating with Motrin [id number] as needed for pain. Wash abrasions and skin lesions with gentle soap and water once every 24 hours. Apply bacitracin [id number] to the skin lesions. Return to the emergency room right away with new, worsening or different symptoms, or symptoms not present on the initial emergency room evaluation. Referrals: JESE HORAN MD [Staff Physician] - 3-5 Days [facility] [Provider Group] - 3-5 Days [facility] [Provider Group] - 3-5 Days
--- NOTE | 2019-05-23 15:57 | XRay Report ---
RIGHT ELBOW 3 VIEW(S) INDICATION / CLINICAL INFORMATION: fall on right elbow COMPARISON: None available. FINDINGS: BONES / JOINT(S): No acute fracture or subluxation. Severe radiocapitellar joint osteoarthrosis is no klaudia with loss of joint space and osteophyte formation. Subjective osteopenia is present. SOFT TISSUES: Calcified body along the lateral/radial aspect of the lateral epicondyle represents maribell cific tendinosis in the common extensor tendon versus mineralization in the radial collateral ligamen t, possibly associated with an old injury. ADDITIONAL FINDINGS: None. IMPRESSION: 1. No acute injury is identified. With continued pain and limited range of motion, further evaluation may be performed with CT or MRI. Signer Name: Casa Friend MD Signed: 05/23/2019 3:53 PM Workstation Name: [id number]
--- NOTE | 2019-05-23 15:58 | XRay Report ---
LEFT FOREARM 3 VIEWS INDICATION / CLINICAL INFORMATION: faLl left forearm pain. COMPARISON: None available. FINDINGS: Osteopenia is present. No acute fracture or dislocation is seen within the left radius or ulna. There is focal ossific density which is well corticated along the dorsal aspect of the wrist likely second tutu to old triquetral fracture. Signer Name: Ramana Awan MD Signed: 05/23/2019 3:54 PM Workstation Name: [id number]
--- NOTE | 2019-05-23 16:01 | XRay Report ---
RIGHT HIP 4 VIEW(S) INDICATION / CLINICAL INFORMATION: fall right hip pain COMPARISON: Right hip x-ray 04/27/2019 FINDINGS: BONES / JOINT(S): No acute fracture or subluxation. No significant arthritis. SOFT TISSUES: No significant abnormality. ADDITIONAL FINDINGS: There has been interval fracture ORIF of the previously noted markedly displaced right intertrochanteric fracture with right femoral neck screw and intramedullary nail which has kimberly wn mild interval healing with some external callus formation. IMPRESSION: Healing right intertrochanteric hip fracture status post ORIF. Signer Name: Ramana Awan MD Signed: 05/23/2019 3:57 PM Workstation Name: [id number]
[2019-05-23 16:22] LABS: BUN/Creatinine Ratio 15; Blood Urea Nitrogen 15 mg/dL (9-20); Calcium 9.2 mg/dL (8.4-10.2); Hemolysis Index 0
[2019-05-23] MEDS ORDERED: MAG-OX PO STA (16:26)
[2019-05-23 18:36] VITALS: BP 139/85
== END 2019-05-23 18:30 | disposition home or self-care (01) ==
LOC: ED 14:11
DX: S51.011A Laceration without foreign body of right elbow, initial encounter (principal); S51.802A Unspecified open wound of left forearm, initial encounter; M85.80 Other specified disorders of bone density and structure, unspecified site; M25.551 Pain in right hip; G89.29 Other chronic pain; I10 Essential (primary) hypertension; K21.9 Gastro-esophageal reflux disease without esophagitis; F17.200 Nicotine dependence, unspecified, uncomplicated; F12.10 Cannabis abuse, uncomplicated; F14.10 Cocaine abuse, uncomplicated; Z79.899 Other long term (current) drug therapy; Z98.890 Other specified postprocedural states; W18.30XA Fall on same level, unspecified, initial encounter; Z91.81 History of falling; Y93.89 Activity, other specified; Y92.89 Other specified places as the place of occurrence of the external cause; Y99.8 Other external cause status
CPT/HCPCS: 36415; 80048; 80320; 82550; 83735; G0480

== ENCOUNTER 2019-05-23 20:37 | Emergency (ER) | payer MEDICARE ==
--- NOTE | 2019-05-23 21:35 | Event Note ---
ED Screening Note Date of service: 05/23/19 Time: 21:32 ED Screening Note: This is a 63 y.o. M. that presents to the ER with right hip pain. Fractured right hip a few months ago. Patient discharged today. States he can't afford to fill prescriptions. PMH HTN, GERD This initial assessment/diagnostic orders/clinical plan/treatment(s) is/are subject to change based on patients health status, clinical progression and re- assessment by fellow clinical providers in the ED. Further treatment and workup at subsequent clinical providers discretion. Patient/guardian urged not to elope from the ED as their condition may be serious if not clinically assessed and managed. Initial orders include:
[2019-05-23 23:06] VITALS: BP 142/90
[2019-05-23] MEDS ORDERED: TYLENOL PO ONE (23:07)
--- NOTE | 2019-05-23 23:11 | Emergency Department Report ---
ED Extremity Problem HPI - General Chief complaint: Extremity Injury, Lower Stated complaint: BACK/FOOT/ABD PAIN Time Seen by Provider: 05/23/19 21:30 Source: patient Mode of arrival: Wheelchair Limitations: Physical Limitation - History of Present Illness Severity scale (0 -10): 10 - Related Data Home Medications Medication Instructions Recorded Confirmed Last Taken ALBUTEROL Inhaler (OR & NICU) 04/07/19 Unknown Previous Rx's Medication Instructions Recorded Last Taken Type Folic Acid [Folvite] 1 mg PO QDAY #30 tablet 10/10/16 Unknown Rx Multivitamin Tab [Multiple Vitamin 1 each PO QDAY #30 tablet 10/10/16 Unknown Rx TAB (Theragran)] ALBUTEROL NEB's [Proventil 0.083% 2.5 mg IH Q4HRT PRN #60 nebu 05/08/19 Unknown Rx NEBS] Arformoterol Nebu [Brovana Nebu] 15 mcg IH Q12HRT #100 ml 05/08/19 Unknown Rx Cyclobenzaprine [Flexeril 10 MG 5 mg PO Q8H PRN #30 tablet 05/08/19 Unknown Rx TAB] Donepezil [Aricept] 5 mg PO DAILY #30 tablet 05/08/19 Unknown Rx Gabapentin [Neurontin] 300 mg PO BID #60 capsule 05/08/19 Unknown Rx HYDROcodone/APAP 5-325 [[place] 2 each PO Q4H PRN #15 tablet 05/08/19 Unknown Rx 5-325 mg TAB] Ipratropium [Atrovent NEB] 0.5 mg PO BID #60 nebu 05/08/19 Unknown Rx Nicotine [Habitrol] 14 mg TD QDAY #7 patch 05/08/19 Unknown Rx Polyethylene Glycol 3350 [Miralax] 119 gm PO DAILY #30 powder 05/08/19 Unknown Rx Thiamine [Vitamin B-1] 100 mg PO QDAY #30 tablet 05/08/19 Unknown Rx amLODIPine [Norvasc] 10 mg PO DAILY #30 tablet 05/08/19 Unknown Rx Acetaminophen [Acetaminophen ER] 650 mg PO Q8HR PRN #24 tablet.er 05/23/19 Unknown Rx Allergies Allergy/AdvReac Type Severity Reaction Status Date / Time No Known Allergies Allergy Verified 05/23/19 16:33 ED Review of Systems ROS: Stated complaint: BACK/FOOT/ABD PAIN Other details as noted in HPI ED Past Medical Hx - Past Medical History Previous Medical History?: Yes Hx Hypertension: Yes Hx Congestive Heart Failure: No Hx Diabetes: No Hx GERD: Yes Hx Asthma: No Hx COPD: No Additional medical history: Left foot pain, Back pain, gastric ulcers - Surgical History Past Surgical History?: Yes Additional Surgical History: right knee surgery, right wrist surgery, Stomach surgery, Recent Right hip fracture and hospitalization - Social History Smoking Status: Current Every Day Smoker - Medications Home Medications: Home Medications Medication Instructions Recorded Confirmed Last Taken Type Folic Acid [Folvite] 1 mg PO QDAY #30 tablet 10/10/16 05/03/19 Unknown Rx Multivitamin Tab [Multiple Vitamin 1 each PO QDAY #30 tablet 10/10/16 05/03/19 Unknown Rx TAB (Theragran)] ALBUTEROL Inhaler (OR & NICU) 04/07/19 Unknown History ALBUTEROL NEB's [Proventil 0.083% 2.5 mg IH Q4HRT PRN #60 nebu 05/08/19 Unknown Rx NEBS] Arformoterol Nebu [Brovana Nebu] 15 mcg IH Q12HRT #100 ml 05/08/19 Unknown Rx Cyclobenzaprine [Flexeril 10 MG 5 mg PO Q8H PRN #30 tablet 05/08/19 Unknown Rx TAB] Donepezil [Aricept] 5 mg PO DAILY #30 tablet 05/08/19 Unknown Rx Gabapentin [Neurontin] 300 mg PO BID #60 capsule 05/08/19 Unknown Rx HYDROcodone/APAP 5-325 [[place] 2 each PO Q4H PRN #15 tablet 05/08/19 Unknown Rx 5-325 mg TAB] Ipratropium [Atrovent NEB] 0.5 mg PO BID #60 nebu 05/08/19 Unknown Rx Nicotine [Habitrol] 14 mg TD QDAY #7 patch 05/08/19 Unknown Rx Polyethylene Glycol 3350 [Miralax] 119 gm PO DAILY #30 powder 05/08/19 Unknown Rx Thiamine [Vitamin B-1] 100 mg PO QDAY #30 tablet 05/08/19 Unknown Rx amLODIPine [Norvasc] 10 mg PO DAILY #30 tablet 05/08/19 Unknown Rx Acetaminophen [Acetaminophen ER] 650 mg PO Q8HR PRN #24 tablet.er 05/23/19 Unknown Rx ED Physical Exam - General Limitations: Physical Limitation ED Course Vital Signs 05/23/19 05/23/19 05/23/19 20:53 23:04 23:05 Temperature 98.0 F 98.7 F Pulse Rate 107 H 90 Respiratory 20 15 15 Rate Blood Pressure 96/66 Blood Pressure 142/90 [Left] O2 Sat by Pulse 86 96 96 Oximetry Critical care attestation.: If time is entered above; I have spent that time in minutes in the direct care of this critically ill patient, excluding procedure time. ED Disposition Disposition: DC-01 TO HOME OR SELFCARE Condition: Stable Instructions: Chronic Pain (ED), Chronic Pelvic Pain in Men (ED), Chronic Back Pain (ED) Prescriptions: Acetaminophen [Acetaminophen ER] 650 mg PO Q8HR PRN #24 tablet.er PRN Reason: Pain , Severe (7-10)
== END 2019-05-24 00:16 | disposition home or self-care (01) ==
LOC: ED 20:37
DX: R10.9 Unspecified abdominal pain (principal); M79.673 Pain in unspecified foot; M54.89 Other dorsalgia; I10 Essential (primary) hypertension; K21.9 Gastro-esophageal reflux disease without esophagitis; F17.200 Nicotine dependence, unspecified, uncomplicated; Z79.899 Other long term (current) drug therapy; Z98.890 Other specified postprocedural states
CPT/HCPCS: 99282

== ENCOUNTER 2019-05-25 15:29 | Emergency (ER) | payer MEDICARE ==
[2019-05-25 15:56] VITALS: BP 108/70
--- NOTE | 2019-05-25 16:02 | Emergency Department Report ---
Chief Complaint: Pain General Stated Complaint: PAIN ALL OVER Time Seen by Provider: 05/25/19 15:55 - HPI History of Present Illness: Patient comes in complaining of generized pain. Patient reports being seen at [facility] last night but did not have a way to the pharmacy to get is medication fill. - ROS Review of Systems: generalized pain. - Exam Vital Signs: Vital Signs 05/25/19 15:54 Temperature 97.8 F Pulse Rate 104 H Respiratory 20 Rate Blood Pressure 108/70 O2 Sat by Pulse 97 Oximetry Physical Exam: axo times 3. NAD MSE screening note: Focused history and physical exam performed. Due to findings the following was ordered: Patient discharge and instructed to go to the pharmacy to get his prescription. ED Disposition for MSE Clinical Impression: Generalized pain Disposition: DC-01 TO HOME OR SELFCARE Is pt being admited?: No Does the pt Need Aspirin: No Condition: Stable Additional Instructions: Go fill your medication. Follow up with your primary care provider.
[2019-05-25] MEDS ORDERED: TYLENOL PO ONE (16:57)
[2019-05-25] MEDS ORDERED: TYLENOL ONE (17:00)
== END 2019-05-25 17:04 | disposition home or self-care (01) ==
LOC: ED 15:29
DX: M79.10 Myalgia, unspecified site (principal)

== ENCOUNTER 2019-05-26 00:44 | Emergency (ER) | payer MEDICARE ==
[2019-05-26 00:50] VITALS: BP 122/81
[2019-05-26] MEDS ORDERED: TYLENOL PO ONE (06:18)
[2019-05-26] MEDS ORDERED: IBUPROFEN PO ONE (06:18)
[2019-05-26] MEDS ORDERED: ALUM-MAG HYDROX-SIMETH 200-200-20MG/5ML PO ONE (06:46)
[2019-05-26] MEDS ORDERED: LIDOCAINE VISCOUS 2% PO ONE (06:46)
[2019-05-26] MEDS ORDERED: LIDOCAINE VISCOUS 2% ONE (06:47)
[2019-05-26] MEDS ORDERED: ALUM-MAG HYDROX-SIMETH 200-200-20MG/5ML ONE (06:47)
--- NOTE | 2019-05-26 06:57 | Emergency Department Report ---
ED General Adult HPI - General Chief complaint: Extremity Injury, Lower Stated complaint: BILATERAL LEG PAIN Time Seen by Provider: 05/26/19 06:15 Source: patient Mode of arrival: Wheelchair Limitations: No Limitations - History of Present Illness Initial comments: Patient is a 63-year-old white male with a history of chronic back pain due to degenerative lumbar disc disease and osteoarthritis who presents to the ED with complaint of acute exacerbation of his chronic low back pain and hip pain that radiates lower extremities bilaterally. Patient denies fall, traumatic injury, chest pain, shortness of breath, abdominal pain, numbness and tingling of upper and lower extremities bilaterally. MD Complaint: chronic back and lower extremities pain -: Gradual, year(s) (many) Location: back, lower extremity (hips, feet) Radiation: back, extremity (feet, hip) Severity scale (0 -10): 5 Quality: aching, sharp, constant Consistency: constant Improves with: none Worsens with: movement Associated Symptoms: denies other symptoms. denies: confusion, cough, diaphoresis, fever/chills, headaches, loss of appetite, malaise, nausea/vomiting, rash, shortness of breath, syncope, weakness Treatments Prior to Arrival: NSAID - Related Data Home Medications Medication Instructions Recorded Confirmed Last Taken ALBUTEROL Inhaler (OR & NICU) 04/07/19 Unknown Previous Rx's Medication Instructions Recorded Last Taken Type Folic Acid [Folvite] 1 mg PO QDAY #30 tablet 10/10/16 Unknown Rx Multivitamin Tab [Multiple Vitamin 1 each PO QDAY #30 tablet 10/10/16 Unknown Rx TAB (Theragran)] ALBUTEROL NEB's [Proventil 0.083% 2.5 mg IH Q4HRT PRN #60 nebu 05/08/19 Unknown Rx NEBS] Arformoterol Nebu [Brovana Nebu] 15 mcg IH Q12HRT #100 ml 05/08/19 Unknown Rx Cyclobenzaprine [Flexeril 10 MG 5 mg PO Q8H PRN #30 tablet 05/08/19 Unknown Rx TAB] Donepezil [Aricept] 5 mg PO DAILY #30 tablet 05/08/19 Unknown Rx HYDROcodone/APAP 5-325 [[place] 2 each PO Q4H PRN #15 tablet 05/08/19 Unknown Rx 5-325 mg TAB] Ipratropium [Atrovent NEB] 0.5 mg PO BID #60 nebu 05/08/19 Unknown Rx Nicotine [Habitrol] 14 mg TD QDAY #7 patch 05/08/19 Unknown Rx Polyethylene Glycol 3350 [Miralax] 119 gm PO DAILY #30 powder 05/08/19 Unknown Rx Thiamine [Vitamin B-1] 100 mg PO QDAY #30 tablet 05/08/19 Unknown Rx amLODIPine [Norvasc] 10 mg PO DAILY #30 tablet 05/08/19 Unknown Rx Acetaminophen [Acetaminophen ER] 650 mg PO Q8HR PRN #24 tablet.er 05/26/19 Unknown Rx Gabapentin [Neurontin] 300 mg PO BID #30 capsule 05/26/19 Unknown Rx Allergies Allergy/AdvReac Type Severity Reaction Status Date / Time No Known Allergies Allergy Verified 05/23/19 16:33 ED Review of Systems ROS: Stated complaint: BILATERAL LEG PAIN Other details as noted in HPI Constitutional: denies: chills, fever Eyes: denies: eye pain, eye discharge, vision change ENT: denies: ear pain, throat pain Respiratory: denies: cough, shortness of breath, wheezing Cardiovascular: denies: chest pain, palpitations Endocrine: no symptoms reported Gastrointestinal: denies: abdominal pain, nausea, diarrhea Genitourinary: denies: urgency, dysuria Musculoskeletal: back pain, arthralgia (Bilateral hips and feet). denies: joint swelling Skin: denies: rash, lesions Neurological: denies: headache, weakness, paresthesias Psychiatric: denies: anxiety, depression Hematological/Lymphatic: denies: easy bleeding, easy bruising ED Past Medical Hx - Past Medical History Hx Hypertension: Yes Hx Congestive Heart Failure: No Hx Diabetes: No Hx GERD: Yes Hx Asthma: No Hx COPD: No Additional medical history: Left foot pain, Back pain, gastric ulcers - Surgical History Additional Surgical History: right knee surgery, right wrist surgery, Stomach surgery, Recent Right hip fracture and hospitalization - Social History Smoking Status: Current Every Day Smoker Substance Use Type: Alcohol, Marijuana - Medications Home Medications: Home Medications Medication Instructions Recorded Confirmed Last Taken Type Folic Acid [Folvite] 1 mg PO QDAY #30 tablet 10/10/16 05/03/19 Unknown Rx Multivitamin Tab [Multiple Vitamin 1 each PO QDAY #30 tablet 10/10/16 05/03/19 Unknown Rx TAB (Theragran)] ALBUTEROL Inhaler (OR & NICU) 04/07/19 Unknown History ALBUTEROL NEB's [Proventil 0.083% 2.5 mg IH Q4HRT PRN #60 nebu 05/08/19 Unknown Rx NEBS] Arformoterol Nebu [Brovana Nebu] 15 mcg IH Q12HRT #100 ml 05/08/19 Unknown Rx Cyclobenzaprine [Flexeril 10 MG 5 mg PO Q8H PRN #30 tablet 05/08/19 Unknown Rx TAB] Donepezil [Aricept] 5 mg PO DAILY #30 tablet 05/08/19 Unknown Rx HYDROcodone/APAP 5-325 [[place] 2 each PO Q4H PRN #15 tablet 05/08/19 Unknown Rx 5-325 mg TAB] Ipratropium [Atrovent NEB] 0.5 mg PO BID #60 nebu 05/08/19 Unknown Rx Nicotine [Habitrol] 14 mg TD QDAY #7 patch 05/08/19 Unknown Rx Polyethylene Glycol 3350 [Miralax] 119 gm PO DAILY #30 powder 05/08/19 Unknown Rx Thiamine [Vitamin B-1] 100 mg PO QDAY #30 tablet 05/08/19 Unknown Rx amLODIPine [Norvasc] 10 mg PO DAILY #30 tablet 05/08/19 Unknown Rx Acetaminophen [Acetaminophen ER] 650 mg PO Q8HR PRN #24 tablet.er 05/26/19 Unknown Rx Gabapentin [Neurontin] 300 mg PO BID #30 capsule 05/26/19 Unknown Rx ED Physical Exam - General Limitations: No Limitations General appearance: alert, in no apparent distress, cachectic - Head Head exam: Present: atraumatic, normocephalic, normal inspection - Eye Eye exam: Present: normal appearance, PERRL, EOMI. Absent: scleral icterus Pupils: Present: normal accommodation - ENT ENT exam: Present: mucous membranes moist, TM's normal bilaterally, normal external ear exam - Neck Neck exam: Present: normal inspection, full ROM. Absent: tenderness, meningismus, lymphadenopathy, thyromegaly - Respiratory Respiratory exam: Present: normal lung sounds bilaterally. Absent: respiratory distress, wheezes, rales, rhonchi, chest wall tenderness, accessory muscle use, decreased breath sounds - Cardiovascular Cardiovascular Exam: Present: regular rate, normal rhythm, normal heart sounds. Absent: systolic murmur, diastolic murmur, rubs, gallop - GI/Abdominal GI/Abdominal exam: Present: soft, normal bowel sounds. Absent: distended, tenderness, guarding, rebound, hyperactive bowel sounds, hypoactive bowel sounds , organomegaly - Rectal Rectal exam: Present: deferred - Extremities Exam Extremities exam: Present: normal inspection, full ROM, tenderness (bilateral hip and feet tenderness), normal capillary refill. Absent: pedal edema, joint swelling - Back Exam Back exam: Present: normal inspection, full ROM, tenderness, muscle spasm, paraspinal tenderness (Palpable lumbosacral paraspinal musculoskeletal tenderness) - Neurological Exam Neurological exam: Present: alert, oriented X3, CN II-XII intact, normal gait, reflexes normal - Psychiatric Psychiatric exam: Present: normal affect, normal mood - Skin Skin exam: Present: warm, dry, intact, normal color. Absent: rash ED Course Vital Signs 05/26/19 00:48 Temperature 97.4 F L Pulse Rate 95 H Respiratory 18 Rate Blood Pressure 122/81 O2 Sat by Pulse 97 Oximetry - Reevaluation(s) Reevaluation #1: 05/26/19 07:03 This is a 63-year-old male with a history of chronic pain who presented to the ED for evaluation and competent of acute exacerbation of his chronic back pain. Patient is alert and oriented 3 and is not in distress, resting comfortably on the chair and asking for food. Patient was treated for pain in the ED and discharged home and advised to follow-up with his primary care physician in 3-5 days for reevaluation or return to the ED immediately if symptoms get worse. ED Medical Decision Making - Medical Decision Making This is a 63-year-old male with a history of chronic pain who presented to the ED for evaluation and competent of acute exacerbation of his chronic back pain. Patient is alert and oriented 3 and is not in distress, resting comfortably on the chair and asking for food. Patient was treated for pain in the ED and discharged home and advised to follow-up with his primary care physician in 3-5 days for reevaluation or return to the ED immediately if symptoms get worse. - Differential Diagnosis chronic back pain; chronic pain syndrome Critical care attestation.: If time is entered above; I have spent that time in minutes in the direct care of this critically ill patient, excluding procedure time. ED Disposition Clinical Impression: Chronic pain of both hips, Chronic osteoarthritis Chronic bilateral low back pain Qualifiers: Sciatica presence: without sciatica Qualified Code(s): M54.5 - Low back pain; G89.29 - Other chronic pain Disposition: TO HOME OR SELFCARE Is pt being admited?: No Does the pt Need Aspirin: No Condition: Stable Instructions: Lumbar Radiculopathy (ED), Arthralgia (ED), Osteoarthritis (ED) Additional Instructions: Take medications, drink plenty of fluids and follow-up with your primary care physician in 2-3 days for reevaluation. Return to the ED immediately if symptoms get worse. Prescriptions: Acetaminophen [Acetaminophen ER] 650 mg PO Q8HR PRN #24 tablet.er PRN Reason: Pain , Severe (7-10) Gabapentin [Neurontin] 300 mg PO BID #30 capsule Referrals: [facility] [Outside] - 3-5 Days Time of Disposition: 07:06 Print Language: UZBEK
== END 2019-05-26 07:41 | disposition home or self-care (01) ==
LOC: ED 00:44
DX: M16.12 Unilateral primary osteoarthritis, left hip (principal); M16.11 Unilateral primary osteoarthritis, right hip; M54.5 Low back pain; G89.29 Other chronic pain; I10 Essential (primary) hypertension; K21.9 Gastro-esophageal reflux disease without esophagitis; M79.672 Pain in left foot; F17.200 Nicotine dependence, unspecified, uncomplicated; F12.10 Cannabis abuse, uncomplicated; Z98.890 Other specified postprocedural states; Z79.899 Other long term (current) drug therapy

== ENCOUNTER 2019-05-26 21:09 | Emergency (ER) | payer MEDICARE ==
--- NOTE | 2019-05-27 05:02 | Emergency Department Report ---
ED General Adult HPI - General Chief complaint: Pain General Stated complaint: BODY PAIN Time Seen by Provider: 05/27/19 02:37 Source: patient Mode of arrival: Wheelchair Limitations: Physical Limitation - History of Present Illness Initial comments: Patient is a 63-year-old white male with a history of chronic pain who presents for body aches including right hip is ground-level fall 1 week ago seen in the ED multiple times for same. Patient has follow-up with orthopedic surgery and has not followed lives with brother who transports him to ED patient states he is out of pain medicine and needs more According to [place] [facility] last prescription for tramadol filed 11/29/2018, pt was given rx for tylenol yesterday, and day before, rx hydrocodone on 05/08/19, pt denies new fall injury or trauma is ambulatory with walker , will give po tylenol in ed, today, and dc to home, pt states his brother is on the way to pick him up, there is no acute complaint at this time. pt is tolerating po intake, pt is ambulatory with walker to baseline per patient. Nursing to call family member to confirm pickup if no answer will call nonemergent transport for medicaide transport to home Onset/Timin -: year(s) Location: lower extremity Radiation: non-radiation, extremity Severity scale (0 -10): 2 Quality: aching Consistency: constant Improves with: rest Worsens with: movement (prolong standing and walking ) Associated Symptoms: denies other symptoms Treatments Prior to Arrival: none - Related Data Home Medications Medication Instructions Recorded Confirmed Last Taken ALBUTEROL Inhaler (OR & NICU) 04/07/19 Unknown Previous Rx's Medication Instructions Recorded Last Taken Type Folic Acid [Folvite] 1 mg PO QDAY #30 tablet 10/10/16 Unknown Rx Multivitamin Tab [Multiple Vitamin 1 each PO QDAY #30 tablet 10/10/16 Unknown Rx TAB (Theragran)] ALBUTEROL NEB's [Proventil 0.083% 2.5 mg IH Q4HRT PRN #60 nebu 05/08/19 Unknown Rx NEBS] Arformoterol Nebu [Brovana Nebu] 15 mcg IH Q12HRT #100 ml 05/08/19 Unknown Rx Cyclobenzaprine [Flexeril 10 MG 5 mg PO Q8H PRN #30 tablet 05/08/19 Unknown Rx TAB] Donepezil [Aricept] 5 mg PO DAILY #30 tablet 05/08/19 Unknown Rx HYDROcodone/APAP 5-325 [[place] 2 each PO Q4H PRN #15 tablet 05/08/19 Unknown Rx 5-325 mg TAB] Ipratropium [Atrovent NEB] 0.5 mg PO BID #60 nebu 05/08/19 Unknown Rx Nicotine [Habitrol] 14 mg TD QDAY #7 patch 05/08/19 Unknown Rx Polyethylene Glycol 3350 [Miralax] 119 gm PO DAILY #30 powder 05/08/19 Unknown Rx Thiamine [Vitamin B-1] 100 mg PO QDAY #30 tablet 05/08/19 Unknown Rx amLODIPine [Norvasc] 10 mg PO DAILY #30 tablet 05/08/19 Unknown Rx Acetaminophen [Acetaminophen ER] 650 mg PO Q8HR PRN #24 tablet.er 05/26/19 Unknown Rx Gabapentin [Neurontin] 300 mg PO BID #30 capsule 05/26/19 Unknown Rx Allergies Allergy/AdvReac Type Severity Reaction Status Date / Time No Known Allergies Allergy Verified 05/23/19 16:33 ED Review of Systems ROS: Stated complaint: BODY PAIN Other details as noted in HPI Constitutional: denies: chills, fever Eyes: denies: eye pain, eye discharge, vision change ENT: denies: ear pain, throat pain Respiratory: denies: cough, shortness of breath, wheezing Cardiovascular: denies: chest pain, palpitations Endocrine: no symptoms reported Gastrointestinal: denies: abdominal pain, nausea, diarrhea Genitourinary: denies: urgency, dysuria Musculoskeletal: arthralgia. denies: back pain, joint swelling Skin: denies: rash, lesions Neurological: denies: headache, weakness, paresthesias Psychiatric: denies: anxiety, depression Hematological/Lymphatic: denies: easy bleeding, easy bruising ED Past Medical Hx - Past Medical History Hx Hypertension: Yes Hx Congestive Heart Failure: No Hx Diabetes: No Hx GERD: Yes Hx Asthma: No Hx COPD: No Additional medical history: Left foot pain, Back pain, gastric ulcers - Surgical History Additional Surgical History: right knee surgery, right wrist surgery, Stomach surgery, Recent Right hip fracture and hospitalization - Social History Smoking Status: Current Every Day Smoker Substance Use Type: Alcohol - Medications Home Medications: Home Medications Medication Instructions Recorded Confirmed Last Taken Type Folic Acid [Folvite] 1 mg PO QDAY #30 tablet 10/10/16 05/03/19 Unknown Rx Multivitamin Tab [Multiple Vitamin 1 each PO QDAY #30 tablet 10/10/16 05/03/19 Unknown Rx TAB (Theragran)] ALBUTEROL Inhaler (OR & NICU) 04/07/19 Unknown History ALBUTEROL NEB's [Proventil 0.083% 2.5 mg IH Q4HRT PRN #60 nebu 05/08/19 Unknown Rx NEBS] Arformoterol Nebu [Brovana Nebu] 15 mcg IH Q12HRT #100 ml 05/08/19 Unknown Rx Cyclobenzaprine [Flexeril 10 MG 5 mg PO Q8H PRN #30 tablet 05/08/19 Unknown Rx TAB] Donepezil [Aricept] 5 mg PO DAILY #30 tablet 05/08/19 Unknown Rx HYDROcodone/APAP 5-325 [[place] 2 each PO Q4H PRN #15 tablet 05/08/19 Unknown Rx 5-325 mg TAB] Ipratropium [Atrovent NEB] 0.5 mg PO BID #60 nebu 05/08/19 Unknown Rx Nicotine [Habitrol] 14 mg TD QDAY #7 patch 05/08/19 Unknown Rx Polyethylene Glycol 3350 [Miralax] 119 gm PO DAILY #30 powder 05/08/19 Unknown Rx Thiamine [Vitamin B-1] 100 mg PO QDAY #30 tablet 05/08/19 Unknown Rx amLODIPine [Norvasc] 10 mg PO DAILY #30 tablet 05/08/19 Unknown Rx Acetaminophen [Acetaminophen ER] 650 mg PO Q8HR PRN #24 tablet.er 05/26/19 Unknown Rx Gabapentin [Neurontin] 300 mg PO BID #30 capsule 05/26/19 Unknown Rx ED Physical Exam - General Limitations: Physical Limitation General appearance: alert, in no apparent distress - Head Head exam: Present: atraumatic, normocephalic - Eye Eye exam: Present: normal appearance, PERRL, EOMI Pupils: Present: normal accommodation - ENT ENT exam: Present: mucous membranes moist - Neck Neck exam: Present: normal inspection, full ROM. Absent: tenderness, lymphadenopathy, thyromegaly - Expanded Neck Exam Expanded Neck exam: Absent: tenderness, midline deformity - Respiratory Respiratory exam: Present: normal lung sounds bilaterally. Absent: respiratory distress, wheezes, stridor, chest wall tenderness - Cardiovascular Cardiovascular Exam: Present: normal rhythm, normal heart sounds. Absent: systolic murmur, diastolic murmur, rubs, gallop - GI/Abdominal GI/Abdominal exam: Present: soft, normal bowel sounds. Absent: distended, tenderness, bruit, hernia - Rectal Rectal exam: Present: deferred - Extremities Exam Extremities exam: Present: normal inspection, full ROM, normal capillary refill. Absent: tenderness - Expanded Lower Extremity Exam Right Hip exam: Present: full ROM. Absent: tenderness, swelling, abrasion, laceration, ecchymosis, deformity, crepidus, dislocation, erythema, external rotation, internal rotation, shortening, pelvic stability Upper Leg exam: Present: normal inspection, full ROM. Absent: tenderness Knee exam: Present: full ROM. Absent: tenderness, swelling Lower Leg exam: Present: normal inspection, full ROM. Absent: tenderness Neuro vascular tendon exam: Absent: no vascular compromise, pulse deficit, motor deficit, sensory deficit, tendon deficit, foot drop Gait: Positive: observed and normal - Back Exam Back exam: Present: normal inspection, full ROM. Absent: tenderness, CVA tenderness (R), CVA tenderness (L), muscle spasm, paraspinal tenderness, vertebral tenderness, rash noted - Neurological Exam Neurological exam: Present: alert, oriented X3, CN II-XII intact, normal gait, reflexes normal. Absent: motor sensory deficit - Expanded Neurological Exam Expanded Patient oriented to: Present: person, place, time Speech: Present: fluid speech Cranial nerves: EOM's Intact: Normal, Gag Reflex: Normal, Tongue Deviation: Normal, Nystagmus: Normal Motor strength exam: RUE: 5, LUE: 5, RLE: 5, LLE: 5 DTR: bicep (R): 2+, bicep (L): 2+ (no), ankle (R): 2+, ankle (L): 2+ Best Eye Response ([place]): (4) open spontaneously Best Motor Response ([place]): (6) obeys commands Best Verbal Response ([place]): (5) oriented [place] Total: 15 - Psychiatric Psychiatric exam: Present: normal affect, normal mood - Skin Skin exam: Present: warm, dry, intact, normal color. Absent: rash ED Course Vital Signs 05/26/19 21:51 Temperature 97.3 F L Pulse Rate 101 H Respiratory 18 Rate Blood Pressure 132/65 O2 Sat by Pulse 100 Oximetry ED Medical Decision Making - Medical Decision Making this is chronic pain without new fall injury or trauma , pt will follow up with pcp bebe, pt will be dc'd to self and transport via brother via pov at this time,, pt is currently a/o x 3 with nad at this time. Critical care attestation.: If time is entered above; I have spent that time in minutes in the direct care of this critically ill patient, excluding procedure time. ED Disposition Clinical Impression: Chronic pain Qualifiers: Chronic pain type: other chronic pain Qualified Code(s): G89.29 - Other chronic pain Disposition: DC-01 TO HOME OR SELFCARE Is pt being admited?: No Does the pt Need Aspirin: No Condition: Stable Instructions: Chronic Pain (ED), Arthralgia (ED) Referrals: GLORIA VALDES MD [Primary Care Provider] - 3-5 Days TR DE LA CRUZ MD [Staff Physician] - 3-5 Days Time of Disposition: 05:17
[2019-05-27] MEDS ORDERED: TYLENOL PO ONE (05:14)
[2019-05-27 09:19] VITALS: BP 142/95
[2019-05-27] MEDS ORDERED: TYLENOL ONE (09:31)
== END 2019-05-27 14:20 | disposition home or self-care (01) ==
LOC: ED 21:09
DX: M54.9 Dorsalgia, unspecified (principal); M79.672 Pain in left foot; M79.671 Pain in right foot; G89.29 Other chronic pain; I10 Essential (primary) hypertension; K21.9 Gastro-esophageal reflux disease without esophagitis; F17.200 Nicotine dependence, unspecified, uncomplicated; Z98.890 Other specified postprocedural states; Z79.899 Other long term (current) drug therapy; W18.39XA Other fall on same level, initial encounter; Y93.89 Activity, other specified; Y92.89 Other specified places as the place of occurrence of the external cause; Y99.8 Other external cause status
CPT/HCPCS: 99282

== ENCOUNTER 2019-05-27 22:10 | Emergency (ER) | payer MEDICARE ==
[2019-05-27 23:28] VITALS: BP 99/62
== END 2019-05-27 23:50 | disposition left against medical advice (07) ==
LOC: ED 22:10
DX: R52 Pain, unspecified (principal); Z53.21 Procedure and treatment not carried out due to patient leaving prior to being seen by health care provider

== ENCOUNTER 2019-05-28 07:47 | Emergency (ER) | payer MEDICARE ==
[2019-05-28 07:53] VITALS: BP 117/81
[2019-05-28] MEDS ORDERED: TYLENOL PO ONE (08:29)
--- NOTE | 2019-05-28 08:36 | Emergency Department Report ---
HPI - General Chief Complaint: Extremity Injury, Lower Time Seen by Provider: 05/28/19 08:17 - HPI HPI: 63-year-old male, who is well-known to myself in this department, presents for his fourth day in a row for the complaint of some chronic hip, foot and back pains. The patient does have a known history of previous hip fracture with ORIF. He has some skeletal deformities of his toes. He was previously referred to a diagnostics tech and the patient says that he did see them and has another appointment next month. The patient is not necessarily homeless, but he bounces around between multiple different friends, family and shelters. He denies any recent or new falls/trauma. The patient was appears to given a prescription for Tylenol which she has not had filled. ED Past Medical Hx - Past Medical History Hx Hypertension: Yes Hx Congestive Heart Failure: No Hx Diabetes: No Hx GERD: Yes Hx Asthma: No Hx COPD: No Additional medical history: Left foot pain, Back pain, gastric ulcers - Surgical History Additional Surgical History: right knee surgery, right wrist surgery, Stomach surgery, Recent Right hip fracture and hospitalization - Social History Smoking Status: Current Every Day Smoker Substance Use Type: Alcohol, Marijuana - Medications Home Medications: Home Medications Medication Instructions Recorded Confirmed Last Taken Type Folic Acid [Folvite] 1 mg PO QDAY #30 tablet 10/10/16 05/03/19 Unknown Rx Multivitamin Tab [Multiple Vitamin 1 each PO QDAY #30 tablet 10/10/16 05/03/19 Unknown Rx TAB (Theragran)] ALBUTEROL Inhaler (OR & NICU) 04/07/19 Unknown History ALBUTEROL NEB's [Proventil 0.083% 2.5 mg IH Q4HRT PRN #60 nebu 05/08/19 Unknown Rx NEBS] Arformoterol Nebu [Brovana Nebu] 15 mcg IH Q12HRT #100 ml 05/08/19 Unknown Rx Cyclobenzaprine [Flexeril 10 MG 5 mg PO Q8H PRN #30 tablet 05/08/19 Unknown Rx TAB] Donepezil [Aricept] 5 mg PO DAILY #30 tablet 05/08/19 Unknown Rx HYDROcodone/APAP 5-325 [[place] 2 each PO Q4H PRN #15 tablet 05/08/19 Unknown Rx 5-325 mg TAB] Ipratropium [Atrovent NEB] 0.5 mg PO BID #60 nebu 05/08/19 Unknown Rx Nicotine [Habitrol] 14 mg TD QDAY #7 patch 05/08/19 Unknown Rx Polyethylene Glycol 3350 [Miralax] 119 gm PO DAILY #30 powder 05/08/19 Unknown Rx Thiamine [Vitamin B-1] 100 mg PO QDAY #30 tablet 05/08/19 Unknown Rx amLODIPine [Norvasc] 10 mg PO DAILY #30 tablet 05/08/19 Unknown Rx Acetaminophen [Acetaminophen ER] 650 mg PO Q8HR PRN #24 tablet.er 05/26/19 Unknown Rx Gabapentin [Neurontin] 300 mg PO BID #30 capsule 05/26/19 Unknown Rx ED Review of Systems ROS: Stated complaint: R HIP/BACK/FEET PAIN Other details as noted in HPI Comment: All other systems reviewed and negative Constitutional: denies: chills, fever Respiratory: cough (chronic). denies: shortness of breath Cardiovascular: denies: chest pain, edema Musculoskeletal: arthralgia, myalgia. denies: joint swelling Neurological: denies: numbness, paresthesias Physical Exam - Physical Exam Vital Signs: Vital Signs 05/28/19 05/28/19 07:52 08:21 Temperature 97.9 F Pulse Rate 117 H 111 H Respiratory 16 20 Rate Blood Pressure 117/81 O2 Sat by Pulse 97 98 Oximetry Physical Exam: GENERAL: The patient is well-developed well-nourished. HENT: Normocephalic. Atraumatic. Patient has moist mucous membranes. EYES: Extraocular motions are intact. NECK: Supple. Trachea is midline. CHEST/LUNGS: Clear to auscultation. There is no respiratory distress noted. HEART/CARDIOVASCULAR: Regular. There is no tachycardia. There is no murmur. ABDOMEN: Abdomen is soft, nontender. Patient has normal bowel sounds. There is no abdominal distention. SKIN: Skin is warm and dry. NEURO: The patient is awake, alert, and oriented. The patient is cooperative. MUSCULOSKELETAL: There is some tenderness to palpation to the right hip but no obvious deformity. There is no limitation range of motion. BACK: No midline thoracic or lumbar tenderness to palpation, step-off or deformity. There is some reproducible lower thoracic and lumbar paraspinal tenderness bilaterally. ED Course Vital Signs 05/28/19 05/28/19 07:52 08:21 Temperature 97.9 F Pulse Rate 117 H 111 H Respiratory 16 20 Rate Blood Pressure 117/81 O2 Sat by Pulse 97 98 Oximetry ED Medical Decision Making - Lab Data Result diagrams: 05/28/19 08:34 05/28/19 08:34 - Medical Decision Making This patient has been to the emergency department multiple times, including 5 or 6 times in the past week, for what appears to be chronic pains to the hips, back, feet. He has a known orthopedic repair to the right hip but there has been no recent fall, especially since he was here yesterday. Due to his mild tachycardia, I did obtain some labs but the CBC and metabolic panel were unremarkable. Since it was no new fall in the past 24 hours, I did not feel that any imaging was necessary at this time. The patient has been given prescriptions for pain medication in the recent past that he has not had filled. He has been given a referral for primary care and orthopedist. He will return to the ER with any worsening of his symptoms or any acute distress. Critical Care Time: No Critical care attestation.: If time is entered above; I have spent that time in minutes in the direct care of this critically ill patient, excluding procedure time. ED Disposition Clinical Impression: Chronic pain Qualifiers: Chronic pain type: other chronic pain Qualified Code(s): G89.29 - Other chronic pain Disposition: - TO HOME OR SELFCARE Is pt being admited?: No Condition: Stable Instructions: Chronic Pain (ED) Additional Instructions: Please follow up with a primary care physician and I will give you multiple referrals for local primary care clinics in the area. I am also giving him a referral for a local orthopedist, Dr. Sloan, to follow up regarding your musculoskeletal and joint pains. Return to the emergency department with any worsening of your symptoms or any acute distress. Referrals: [facility] [Outside] - 3-5 Days [facility] [Outside] - 3-5 Days [facility] [Outside] - 3-5 Days [facility] [Outside] - 3-5 Days [facility] [Outside] - 3-5 Days JESE SLOAN MD [Staff Physician] - 3-5 Days Time of Disposition: 13:14
[2019-05-28 08:46] LABS: Basophils % (Auto) 0.8 % (0.0-1.8); Eosinophils # (Auto) 0.4 K/mm3 (0.0-0.4); Eosinophils % (Auto) 8.4 % (0.0-4.3); Hematocrit 33.6 % (35.5-45.6); Hemoglobin 11.4 gm/dl (11.8-15.2); Lymphocytes # (Auto) 1.2 K/mm3 (1.2-5.4); Lymphocytes % (Auto) 28.6 % (13.4-35.0); Mean Corpuscular HGB Conc 34 % (32-34); Mean Corpuscular Volume 94 fl (84-94); Monocytes # (Auto) 0.4 K/mm3 (0.0-0.8); Monocytes % (Auto) 9.3 % (0.0-7.3); Platelet Count 244 K/mm3 (140-440); Red Blood Count 3.59 M/mm3 (3.65-5.03); Red Cell Distribution Width 17.2 % (13.2-15.2)
[2019-05-28 09:04] LABS: BUN/Creatinine Ratio 18; Blood Urea Nitrogen 16 mg/dL (9-20); Calcium 9.2 mg/dL (8.4-10.2); Hemolysis Index 7
== END 2019-05-28 09:27 | disposition home or self-care (01) ==
LOC: ED 07:47
DX: G89.29 Other chronic pain (principal); M25.551 Pain in right hip; M54.9 Dorsalgia, unspecified; M79.672 Pain in left foot; I10 Essential (primary) hypertension; K21.9 Gastro-esophageal reflux disease without esophagitis; F17.200 Nicotine dependence, unspecified, uncomplicated; F12.10 Cannabis abuse, uncomplicated; Z79.899 Other long term (current) drug therapy; Z98.890 Other specified postprocedural states
CPT/HCPCS: 36415; 80048; 85025

== ENCOUNTER 2019-05-29 11:59 | Emergency (ER) | payer MEDICARE ==
--- NOTE | 2019-05-29 12:12 | Event Note ---
ED Screening Note Date of service: 05/29/19 Time: 12:11 ED Screening Note: This is a 63 y.o. M. that presents to the ER with generalized pain. This initial assessment/diagnostic orders/clinical plan/treatment(s) is/are subject to change based on patients health status, clinical progression and re- assessment by fellow clinical providers in the ED. Further treatment and workup at subsequent clinical providers discretion. Patient/guardian urged not to elope from the ED as their condition may be serious if not clinically assessed and managed. Initial orders include:
[2019-05-29 12:14] VITALS: BP 105/69
[2019-05-29] MEDS ORDERED: IBUPROFEN PO STA (13:57)
--- NOTE | 2019-05-29 14:00 | Emergency Department Report ---
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 He has a history of previous fracture which occurred according to the patient with 3-4 months ago requiring ORIF F. He has a history of arthritis and also some various skeletal deformities involving his toes, which she does see podiatry. States that he did have an appointment last month and is due to follow up next m [facility]. Patient seen multiple times in the past few weeks for chronic pain. Was last seen on yesterday by Dr. Bradshaw. At the time had mild tachycardia, which he does have to day. It also was evaluated. He was with labs and an EKG. His CBC and metabolic panel unremarkable and he was reports no new injury since that visit as well has not gotten his prescription filled requests some or pain. He reports no chest pain, palpitations, nausea, vomiting, fever, chills, sweats. -: Gradual, month(s) Radiation: non-radiation Quality: aching Consistency: constant Associated Symptoms: denies: cough, diaphoresis, loss of appetite, malaise, nausea/vomiting, rash, shortness of breath, syncope, weakness Treatments Prior to Arrival: none - Related Data Home Medications Medication Instructions Recorded Confirmed Last Taken ALBUTEROL Inhaler (OR & NICU) 04/07/19 Unknown Previous Rx's Medication Instructions Recorded Last Taken Type Folic Acid [Folvite] 1 mg PO QDAY #30 tablet 10/10/16 Unknown Rx Multivitamin Tab [Multiple Vitamin 1 each PO QDAY #30 tablet 10/10/16 Unknown Rx TAB (Theragran)] ALBUTEROL NEB's [Proventil 0.083% 2.5 mg IH Q4HRT PRN #60 nebu 05/08/19 Unknown Rx NEBS] Arformoterol Nebu [Brovana Nebu] 15 mcg IH Q12HRT #100 ml 05/08/19 Unknown Rx Cyclobenzaprine [Flexeril 10 MG 5 mg PO Q8H PRN #30 tablet 05/08/19 Unknown Rx TAB] Donepezil [Aricept] 5 mg PO DAILY #30 tablet 05/08/19 Unknown Rx HYDROcodone/APAP 5-325 [[place] 2 each PO Q4H PRN #15 tablet 05/08/19 Unknown Rx 5-325 mg TAB] Ipratropium [Atrovent NEB] 0.5 mg PO BID #60 nebu 05/08/19 Unknown Rx Nicotine [Habitrol] 14 mg TD QDAY #7 patch 05/08/19 Unknown Rx Polyethylene Glycol 3350 [Miralax] 119 gm PO DAILY #30 powder 05/08/19 Unknown Rx Thiamine [Vitamin B-1] 100 mg PO QDAY #30 tablet 05/08/19 Unknown Rx amLODIPine [Norvasc] 10 mg PO DAILY #30 tablet 05/08/19 Unknown Rx Acetaminophen [Acetaminophen ER] 650 mg PO Q8HR PRN #24 tablet.er 05/26/19 Unknown Rx Gabapentin [Neurontin] 300 mg PO BID #30 capsule 05/26/19 Unknown Rx Allergies Allergy/AdvReac Type Severity Reaction Status Date / Time No Known Allergies Allergy Verified 05/29/19 12:03 ED Review of Systems ROS: Stated complaint: FEET/BACK/STOMACH/RIB/R SIDE PAIN Other details as noted in HPI Comment: All other systems reviewed and negative ED Past Medical Hx - Past Medical History Hx Hypertension: Yes Hx Congestive Heart Failure: No Hx Diabetes: No Hx GERD: Yes Hx Asthma: No Hx COPD: No Additional medical history: Left foot pain, Back pain, gastric ulcers - Surgical History Additional Surgical History: right knee surgery, right wrist surgery, Stomach surgery, Recent Right hip fracture and hospitalization - Social History Smoking Status: Current Every Day Smoker Substance Use Type: None - Medications Home Medications: Home Medications Medication Instructions Recorded Confirmed Last Taken Type Folic Acid [Folvite] 1 mg PO QDAY #30 tablet 10/10/16 05/03/19 Unknown Rx Multivitamin Tab [Multiple Vitamin 1 each PO QDAY #30 tablet 10/10/16 05/03/19 Unknown Rx TAB (Theragran)] ALBUTEROL Inhaler (OR & NICU) 04/07/19 Unknown History ALBUTEROL NEB's [Proventil 0.083% 2.5 mg IH Q4HRT PRN #60 nebu 05/08/19 Unknown Rx NEBS] Arformoterol Nebu [Brovana Nebu] 15 mcg IH Q12HRT #100 ml 05/08/19 Unknown Rx Cyclobenzaprine [Flexeril 10 MG 5 mg PO Q8H PRN #30 tablet 05/08/19 Unknown Rx TAB] Donepezil [Aricept] 5 mg PO DAILY #30 tablet 05/08/19 Unknown Rx HYDROcodone/APAP 5-325 [[place] 2 each PO Q4H PRN #15 tablet 05/08/19 Unknown Rx 5-325 mg TAB] Ipratropium [Atrovent NEB] 0.5 mg PO BID #60 nebu 05/08/19 Unknown Rx Nicotine [Habitrol] 14 mg TD QDAY #7 patch 05/08/19 Unknown Rx Polyethylene Glycol 3350 [Miralax] 119 gm PO DAILY #30 powder 05/08/19 Unknown Rx Thiamine [Vitamin B-1] 100 mg PO QDAY #30 tablet 05/08/19 Unknown Rx amLODIPine [Norvasc] 10 mg PO DAILY #30 tablet 05/08/19 Unknown Rx Acetaminophen [Acetaminophen ER] 650 mg PO Q8HR PRN #24 tablet.er 05/26/19 Unknown Rx Gabapentin [Neurontin] 300 mg PO BID #30 capsule 05/26/19 Unknown Rx ED Physical Exam - General Limitations: Physical Limitation General appearance: alert, in no apparent distress, other ( 63-year-old male, slightly disheveled, does have hospital people down on with holes smell of urine as well) - Head Head exam: Present: atraumatic, normocephalic - Eye Eye exam: Present: normal appearance, PERRL, EOMI Pupils: Present: normal accommodation - ENT ENT exam: Present: normal exam, mucous membranes moist - Neck Neck exam: Present: normal inspection - Respiratory Respiratory exam: Present: normal lung sounds bilaterally. Absent: respiratory distress - Cardiovascular Cardiovascular Exam: Present: regular rate, normal rhythm. Absent: systolic murmur, diastolic murmur, rubs, gallop - GI/Abdominal GI/Abdominal exam: Present: soft, normal bowel sounds - Rectal Rectal exam: Present: deferred - Extremities Exam Extremities exam: Present: normal inspection, tenderness (there is some full range of motion of his knees. There is some crepitus with range of motion but range of motion is full. Joint is stable. No masses or bruising appreciated.), normal capillary refill. Absent: pedal edema, joint swelling, calf tenderness - Back Exam Back exam: Present: normal inspection - Neurological Exam Neurological exam: Present: alert, oriented X3, CN II-XII intact - Psychiatric Psychiatric exam: Present: normal affect, normal mood - Skin Skin exam: Present: warm, dry, intact, normal color. Absent: rash ED Course Vital Signs 05/29/19 12:13 Temperature 98.3 F Pulse Rate 104 H Respiratory 16 Rate Blood Pressure 105/69 [Right] O2 Sat by Pulse 96 Oximetry ED Medical Decision Making - Medical Decision Making 63-year-old male with past medical history of chronic pain well-known to this most department having been seen 5 times in the last 2 weeks. Attempts in the past to help this him with placement however he eloped or fevers. Does reports having some family or individual who was assisting with his living arrangements. States that he did go downtown to stand and then unknown. But states that he did not have time to wait for what they were helping with. States that there is no new injuries. No change in the characteristic of his pain, but does seek algesic medication control. He denies any chest pain or palpitations or shortness of breath. Reports no syncope or dizziness. There is no hemoptysis or hematemesis. Patient on the need for him to fill his previous prescription and that no new prescription will be provided day. No change to the previous therapeutic plan. He is not in any imminent danger based on the examination today there is no emergent condition condition on findings The case was discussed with Dr. Pastor who was well aware of Mr. Ivy and saw him yesterday Critical care attestation.: If time is entered above; I have spent that time in minutes in the direct care of this critically ill patient, excluding procedure time. ED Disposition Clinical Impression: Chronic pain Disposition: DC-01 TO HOME OR SELFCARE Is pt being admited?: No Does the pt Need Aspirin: No Condition: Stable Instructions: Chronic Pain (ED) Referrals: [facility] [Provider Group] - 3-5 Days
== END 2019-05-29 14:50 | disposition home or self-care (01) ==
LOC: ED 11:59
DX: G89.29 Other chronic pain (principal); M25.552 Pain in left hip; M54.9 Dorsalgia, unspecified; M79.673 Pain in unspecified foot; I10 Essential (primary) hypertension; K21.0 Gastro-esophageal reflux disease with esophagitis; F17.200 Nicotine dependence, unspecified, uncomplicated; Z98.890 Other specified postprocedural states; Z79.899 Other long term (current) drug therapy
CPT/HCPCS: 99283

== ENCOUNTER 2019-05-31 22:12 | Emergency (ER) | payer MEDICARE ==
--- NOTE | 2019-06-01 02:43 | Emergency Department Report ---
ED General Adult HPI - General Chief complaint: Pain General Stated complaint: BODY PAIN Time Seen by Provider: 06/01/19 01:25 Source: EMS Mode of arrival: Wheelchair Limitations: No Limitations - History of Present Illness Initial comments: This is a 63-year-old male presents to the emergency room with bilateral lower extremity pain and generalized aches. Past medical history of hypertension, GERD, DJD, cachexia, and chronic pain. Patient is in a wheelchair and requesting pain medication. Patient denies injury, bruising, swelling. Onset/Timin -: week(s) Location: back, lower extremity Severity scale (0 -10): 10 Quality: aching Consistency: constant Improves with: none Worsens with: none Associated Symptoms: denies other symptoms Treatments Prior to Arrival: none - Related Data Home Medications Medication Instructions Recorded Confirmed Last Taken ALBUTEROL Inhaler (OR & NICU) 04/07/19 Unknown Previous Rx's Medication Instructions Recorded Last Taken Type Folic Acid [Folvite] 1 mg PO QDAY #30 tablet 10/10/16 Unknown Rx Multivitamin Tab [Multiple Vitamin 1 each PO QDAY #30 tablet 10/10/16 Unknown Rx TAB (Theragran)] ALBUTEROL NEB's [Proventil 0.083% 2.5 mg IH Q4HRT PRN #60 nebu 05/08/19 Unknown Rx NEBS] Arformoterol Nebu [Brovana Nebu] 15 mcg IH Q12HRT #100 ml 05/08/19 Unknown Rx Cyclobenzaprine [Flexeril 10 MG 5 mg PO Q8H PRN #30 tablet 05/08/19 Unknown Rx TAB] Donepezil [Aricept] 5 mg PO DAILY #30 tablet 05/08/19 Unknown Rx HYDROcodone/APAP 5-325 [[place] 2 each PO Q4H PRN #15 tablet 05/08/19 Unknown Rx 5-325 mg TAB] Ipratropium [Atrovent NEB] 0.5 mg PO BID #60 nebu 05/08/19 Unknown Rx Nicotine [Habitrol] 14 mg TD QDAY #7 patch 05/08/19 Unknown Rx Polyethylene Glycol 3350 [Miralax] 119 gm PO DAILY #30 powder 05/08/19 Unknown Rx Thiamine [Vitamin B-1] 100 mg PO QDAY #30 tablet 05/08/19 Unknown Rx amLODIPine [Norvasc] 10 mg PO DAILY #30 tablet 05/08/19 Unknown Rx Acetaminophen [Acetaminophen ER] 650 mg PO Q8HR PRN #24 tablet.er 05/26/19 Unknown Rx Gabapentin [Neurontin] 300 mg PO BID #30 capsule 05/26/19 Unknown Rx Allergies Allergy/AdvReac Type Severity Reaction Status Date / Time No Known Allergies Allergy Verified 05/29/19 12:03 ED Review of Systems ROS: Stated complaint: BODY PAIN Other details as noted in HPI Constitutional: denies: chills, fever Respiratory: denies: cough, shortness of breath, wheezing Cardiovascular: denies: chest pain, palpitations Gastrointestinal: denies: abdominal pain, nausea, diarrhea Musculoskeletal: back pain, arthralgia. denies: joint swelling Skin: denies: rash, lesions Neurological: denies: headache, weakness, paresthesias Psychiatric: denies: anxiety, depression ED Past Medical Hx - Past Medical History Hx Hypertension: Yes Hx Congestive Heart Failure: No Hx Diabetes: No Hx GERD: Yes Hx Asthma: No Hx COPD: No Additional medical history: Left foot pain, Back pain, gastric ulcers - Surgical History Additional Surgical History: right knee surgery, right wrist surgery, Stomach surgery, Recent Right hip fracture and hospitalization - Social History Smoking Status: Current Every Day Smoker Substance Use Type: Alcohol - Medications Home Medications: Home Medications Medication Instructions Recorded Confirmed Last Taken Type Folic Acid [Folvite] 1 mg PO QDAY #30 tablet 10/10/16 05/03/19 Unknown Rx Multivitamin Tab [Multiple Vitamin 1 each PO QDAY #30 tablet 10/10/16 05/03/19 Unknown Rx TAB (Theragran)] ALBUTEROL Inhaler (OR & NICU) 04/07/19 Unknown History ALBUTEROL NEB's [Proventil 0.083% 2.5 mg IH Q4HRT PRN #60 nebu 05/08/19 Unknown Rx NEBS] Arformoterol Nebu [Brovana Nebu] 15 mcg IH Q12HRT #100 ml 05/08/19 Unknown Rx Cyclobenzaprine [Flexeril 10 MG 5 mg PO Q8H PRN #30 tablet 05/08/19 Unknown Rx TAB] Donepezil [Aricept] 5 mg PO DAILY #30 tablet 05/08/19 Unknown Rx HYDROcodone/APAP 5-325 [[place] 2 each PO Q4H PRN #15 tablet 05/08/19 Unknown Rx 5-325 mg TAB] Ipratropium [Atrovent NEB] 0.5 mg PO BID #60 nebu 05/08/19 Unknown Rx Nicotine [Habitrol] 14 mg TD QDAY #7 patch 05/08/19 Unknown Rx Polyethylene Glycol 3350 [Miralax] 119 gm PO DAILY #30 powder 05/08/19 Unknown Rx Thiamine [Vitamin B-1] 100 mg PO QDAY #30 tablet 05/08/19 Unknown Rx amLODIPine [Norvasc] 10 mg PO DAILY #30 tablet 05/08/19 Unknown Rx Acetaminophen [Acetaminophen ER] 650 mg PO Q8HR PRN #24 tablet.er 05/26/19 Unknown Rx Gabapentin [Neurontin] 300 mg PO BID #30 capsule 05/26/19 Unknown Rx ED Physical Exam - General Limitations: No Limitations General appearance: alert, in no apparent distress, cachectic - Respiratory Respiratory exam: Present: normal lung sounds bilaterally. Absent: respiratory distress - Cardiovascular Cardiovascular Exam: Present: regular rate, normal rhythm. Absent: systolic mu rmur, diastolic murmur, rubs, gallop - GI/Abdominal GI/Abdominal exam: Present: soft, normal bowel sounds. Absent: distended, tenderness, guarding, rebound, rigid - Expanded Lower Extremity Exam Left Upper Leg exam: Present: normal inspection, full ROM Knee exam: Present: full ROM, crepidus, full knee extension. Absent: tenderness, swelling, abrasion, laceration, ecchymosis, deformity, dislocation, erythema, effusion, pain w/ pronation/supination, posterior draw sign, pain/ laxity with valgus, pain/laxity with varus Lower Leg exam: Present: normal inspection, full ROM Ankle exam: Present: normal inspection, full ROM Foot/Toe exam: Present: normal inspection, full ROM Neuro vascular tendon exam: Present: no vascular compromise Gait: Positive: not tested/not observed Right Upper Leg exam: Present: normal inspection, full ROM Knee exam: Present: full ROM, crepidus, full knee extension. Absent: tenderness, swelling, abrasion, laceration, ecchymosis, deformity, dislocation, erythema, effusion, pain w/ pronation/supination, posterior draw sign, pain/laxity with valgus, pain/laxity with varus Lower Leg exam: Present: normal inspection, full ROM Ankle exam: Present: normal inspection, full ROM Foot/Toe exam: Present: normal inspection, full ROM Neuro vascular tendon exam: Present: no vascular compromise Gait: Positive: observed and normal - Back Exam Back exam: Present: normal inspection - Neurological Exam Neurological exam: Present: alert, oriented X3 - Psychiatric Psychiatric exam: Present: normal affect, normal mood - Skin Skin exam: Present: warm, dry, intact, normal color. Absent: rash ED Course Vital Signs 05/31/19 22:23 Temperature 99.7 F H Pulse Rate 101 H Respiratory 18 Rate Blood Pressure 124/76 O2 Sat by Pulse 100 Oximetry ED Medical Decision Making - Medical Decision Making This is a 63-year-old male who presents with acute on chronic pain. Patient seen in this emergency room 8 times this month. He has mild tachycardia which is improved from prior visits. He states he was unable to fill his prescription and requests pain medication. He denies recent injury. Patient given analgesics while in the ER. Encouraged to take prescribed medication for pain. Referral to [facility] for follow up. Patient discharged home stable. Critical care attestation.: If time is entered above; I have spent that time in minutes in the direct care of this critically ill patient, excluding procedure time. ED Disposition Clinical Impression: Chronic osteoarthritis, Chronic pain disorder, Generalized pain Disposition: TO HOME OR SELFCARE Is pt being admited?: No Does the pt Need Aspirin: No Condition: Stable Instructions: Chronic Pain (ED), Chronic Back Pain (ED) Referrals: LINDA THORPE MD [Primary Care Provider] - 3-5 Days [facility] [Outside] - 3-5 Days [facility] [Outside] - 3-5 Days Time of Disposition: 03:56
[2019-06-01 07:16] VITALS: BP 118/77
== END 2019-06-01 06:00 | disposition home or self-care (01) ==
LOC: ED 22:12
DX: M79.10 Myalgia, unspecified site (principal); Z53.21 Procedure and treatment not carried out due to patient leaving prior to being seen by health care provider